=== PATIENT | male | born 1955 | race Caucasian/White ===

== ENCOUNTER 2017-07-21 05:35 | Outpatient (CLI) | payer OTHER ==
[~2017-07-21] VITALS: Ht 185.4 cm; Wt 113.5 kg
[~2017-07-21 05:35] MED LIST: ASP81CT; CLN.1T; FLEC100T2; LISI-556; LISI2.5T; METO100T5; MTP100TCR; SOTA120T; SOTA120T23
[2017-07-21] MEDS ORDERED: ATOR10TA66 PO (12:01)
[2017-07-21] MEDS ORDERED: BNZ40T PO (12:01)
[2017-07-21] MEDS ORDERED: METO-352 PO (12:01)
[2017-07-21] MEDS ORDERED: CLON0.1T PO (12:01)
[2017-07-21] MEDS ORDERED: AMLO5TAB2 PO (12:01)
[2017-07-21] MEDS ORDERED: FLEC100T PO (12:01)
[2017-07-21] MEDS ORDERED: NF-MEXI150 PO (12:01)
== END 2017-07-21 12:07 ==
LOC: PREOP 05:35
PROVIDERS: ATTEND Surgery
DX: Z01.818 Encounter for other preprocedural examination (principal); Z12.11 Encounter for screening for malignant neoplasm of colon; Z86.010 Personal history of colon polyps

== ENCOUNTER → 2017-07-28 | Day surgery (SDC) | payer OTHER ==
[~2017-07-28] VITALS: Ht 185.4 cm; Wt 113.5 kg
[~2017-07-28] MED LIST changes: +ACETAMINOPHEN 325 MG TABLET/CAPLET (TYLENOL) PO PRN; +AMLO5TAB2 PO; +ATOR10TA66 PO; +BNZ40T PO; +CLON0.1T PO; +FLEC100T PO; +HYDROcodone/APAP 5 MG/325 MG (LORTAB) TAB PO PRN; +LIDOCAINE JELLY 2% (XYLOCAINE) 5 ML TUBE MM PRN; +LIDOCAINE JELLY 2% (XYLOCAINE) 5 ML TUBE ONE; +METO-352 PO; +MIDAZOLAM 2 MG/2 ML (VERSED) VIAL ONE; +NF-MEXI150 PO; +NS IV 500 ML 500 ML IV PRN; +ONDANSETRON 4 MG/2 ML (SDV) Z0FRAN IV PRN; +fentaNYL INJECTION 100 MCG/2 ML AMP ONE
[2017-07-28 10:35] VITALS: BP 129/71
--- NOTE | 2017-07-28 10:38 | Conscious Sedation/ASA ---
Conscious Sedation Pre-Proced Time Reviewed: 10:00 ASA Class: 2 Airway Mallampati Classification: ([place] appropriate class) I. II. III, IV Lungs Heart ASA score ASA 1: a normal healthy patient ASA 2: a patient with a mild systemic disease (mid diabetes, controlled hypertension, obesity ASA 3: a patient with a severe systemic disease that limits activity (angina , COPD, prior Myocardial infarction) ASA 4: a patient with an incapacitating disease that is a constant threat to life (CHF, renal failure) ASA 5: a moribund patient not expected to survive 24 hrs. (ruptured aneurysm) ASA 6: a declared brain patient whose organs are being harvested. For emergent operations, add the letter E after the classification Grade 2 Sedation Plan: Analgesia, Amnesia, Plan communicated to team members, Discussed options with patient/fam, Discussed risks with patient/fam Note The patient is an appropriate candidate to undergo the planned procedure, sedation, and anesthesia. The patient immediately re-assessed prior to indication. SKY LOMELI MD Jul 28, 2017 10:38 am
--- NOTE | 2017-07-28 10:39 | Progress Note-Pre Operative ---
Pre-Operative Progress Note H&P Reviewed The H&P was reviewed, patient examined and no changes noted. Date Seen by Provider: Jul 28, 2017 Time Seen by Provider: 10:00 Date H&P Reviewed: Jul 28, 2017 Time H&P Reviewed: 10:00 Pre-Operative Diagnosis: hx colon polyp SKY LOMELI MD Jul 28, 2017 10:38 am
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
--- OUTSIDE RECORDS SUMMARY | 2017-07-28 11:55 | XMS REPORT | Encounter Summary ---
Author Author [facility] Organization [facility] Address Unknown Phone Unavailable Care Team Providers Care Electronics Tech Name Role Phone Namrata Bailey Unavailable Gabriella Knight RN Unavailable Unavailable Jorge Alberto Evans MD PCP Encounter Details Date Type Department Care Team Description 05/26/2017 [facility] Cardiology Сергей Muñoz MD Encounter Remote Device Check [address] [facility] [phone] [address] [place] [address] [phone] Social History Tobacco Use Types Packs/Day Years Used Date Never Smoker Smokeless Tobacco: Never Used Alcohol Use Drinks/Week oz/Week Comments No Sex Assigned at Date Recorded Not on file as of this encounter Medications at Time of Discharge Medication Sig. Disp. Refills Start Date End Date amLODIPine (NORVASC) 5 mg Take 1 tablet by mouth 90 tablet 3 2016 tabletIndications: PAF daily. (paroxysmal atrial fibrillation) (HCC), PVC's (premature ventricular contractions), Essential hypertension with goal blood pressure less than 130/80 atorvastatin (LIPITOR) 10 Take 1 tablet by mouth 90 tablet 3 2016 mg tabletIndications: daily. Hyperlipidemia, unspecified hyperlipidemia type benazepril (LOTENSIN) 40 Take 1 tablet by mouth 90 tablet 3 2016 mg tablet daily. cloNIDine (CATAPRESS) 0.1 Take 1 tablet by mouth 270 tablet 3 2016 mg tablet three times daily. flecainide (TAMBOCOR) 100 Take 1 tablet by mouth 180 tablet 3 2016 mg tabletIndications: PAF twice daily. (paroxysmal atrial fibrillation) (HCC), PVC's (premature ventricular contractions) metoprolol XL (TOPROL XL) Take 1.5 tablets by mouth 135 tablet 3 04/07 50 mg extended release daily. tabletIndications: PAF (paroxysmal atrial fibrillation) (HCC), PVC's (premature ventricular contractions), Essential hypertension with goal blood pressure less than 130/80 mexiletine (MEXITIL) 150 Take 150 mg by mouth as mg capsule directed. Take 2 tablets in the a.m., 2 tablets around 5pm, 1 tablet at bedtime as of this encounter Plan of Treatment Not on fileas of this encounter Results * DEVICE EVALUATION - REMOTE ILR (05/31/2017 1:12 PM) Component Value Ref Range Device Implanted By Dr. 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 [employer] Wireless Generator Yes Device Type ILR Device [place] Carelink Express Transmitter Compatible ILR History of [...] mins Generator Location Left ILR Current Monitoring 05/26/2017 to 06/25/2017 Period ILR Date of Last Daily 05/30/2017 Connection ILR Battery Status OK ILR Symptom Events Since 1 Last Interrogation ILR Symptom Lifetime 2 Events [...] Events as of ILR Presenting ECG Strip 05/30/2017 @ 00:04:50 shows SB in the 50's ILR Lifetime Events as of 05/30/2017 Datetion Specimen Performing Laboratory OTHER OUTSIDE LAB Narrative [05/31/2017 1:15:32 PM - NAMRATA TREJO] EP nurse was flagged to review and f/u if needed. Presenting rhythm: 05/30/2017 @ 00:04:50 shows SB in the 50's Reviewed Summary Report. One Symptom triggered event. #2 Symptom 05/23 @ 21:17 the 30 sec strip shows SR in the 70's. Plot graph suggests possible burst to ST/SA ~1.5-2.5 min prior to symptom triggered activation. Strip was scanned to review and I will route to Dr. Muñoz in the EP service at today for review and co-sign. in this encounter Visit Diagnoses Diagnosis PAF (paroxysmal atrial fibrillation) (HCC) Atrial fibrillation PVC's (premature ventricular contractions) Other premature beats Heart palpitations Palpitations
--- OUTSIDE RECORDS SUMMARY | 2017-07-28 11:55 | XMS REPORT | Encounter Summary ---
Author Author [facility] Organization [facility] Address Unknown Phone Unavailable Care Team Providers Care Ecd Name Role Phone Namrata Bailey Unavailable Gabriella Knight RN Unavailable Unavailable Jorge Alberto Evans MD PCP Reason for Visit * Reason Comments Follow-up Phone Call LINQ symptom event Encounter Details Date Type Department Care Team Description 05/31/[address] [facility] Cardiology Eda Moffett RN Follow- up Phone Call [phone] (LINQ symptom event) [facility] [address] [place] [address] Social History Tobacco Use Types Packs/Day Years Used Date Never Smoker Smokeless Tobacco: Never Used Alcohol Use Drinks/Week oz/Week Comments No Sex Assigned at Date Recorded Not on file as of this encounter Miscellaneous Notes * Telephone Encounter - Eda Moffett RN - 05/31/2017 3:26 PM [facility] Formatting of this note may be different from the original. JOLANTA Murillo Mac Nurse Serena from patient on triage line at 3:05 pm. Said that he is confused about the capture he had on the 3rd. He is at # [phone] till 4 pm then home # after that. Reviewed with device tech, patient may send a manual download with bedside monitor to capture information before time of symptom activation. Called patient with recommendation, he will do so tonight. * Telephone Encounter - Lisa Saenz LPN - 05/31/2017 2:51 PM SAW MAN Pt called back and I asked him his s/s when he sent his transmission and he was in afib. He though he had gotten to his transmitter in time to capture the afib. I told him it showed SB in the 50's. He is positive he had some afib, said he has dealt with this long enough to know. * Telephone Encounter - Eda Moffett RN - 05/31/2017 1:41 PM SAW MAN LM for patient to call back to review symptoms at time of transmission. * Telephone Encounter - Eda Moffett RN - 05/31/2017 1:41 PM SAW MAN ----- Message from Namrata Malagon sent at 05/31/2017 1:30 PM SAW MAN ----- Regarding: MPE LINQ pt with symptom triggered event Review and f/u if needed. Presenting rhythm: 05/30/2017 [...] for review and co-sign. in this encounter Plan of Treatment Not on fileas of this encounter Visit Diagnoses Not on filein this encounter
--- OUTSIDE RECORDS SUMMARY | 2017-07-28 11:55 | XMS REPORT | Encounter Summary ---
Author Author [facility] Organization [facility] Address Unknown Phone Unavailable Care Team Providers Care Rim Fire Charger Operator Name Role Phone Namrata Bailey Unavailable Gabriella Knight RN Unavailable Unavailable Jorge Alberto Evans MD PCP Encounter Details Date Type Department Care Team Description 06/28/2017 [facility] Cardiology Сергей Muñoz MD Encounter Remote Device Check [address] [facility] [phone] [address] [place] [address] [phone] Social History Tobacco Use Types Packs/Day Years [...] EVALUATION - REMOTE ILR (07/02/2017 2:04 PM) Component Value Ref Range Device Implanted By Dr. Сергей Muñoz Generator Model # LNQ11 Generator Serial # [id number] Generator Implnat Date 07/29/16 Remote Monitor Serial# [id number] LIA/EOL Indicator per transmitter Generator Director Risk [employer] Wireless Generator Yes Device Type ILR Device [place] [employer]link Express Transmitter Compatible ILR History of [...] to Dr. Muñoz for signature and review. in this encounter Visit Diagnoses Diagnosis PAF (paroxysmal atrial fibrillation) (HCC) Atrial fibrillation PVC's (premature ventricular contractions) Other premature beats Heart palpitations Palpitations
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
--- OUTSIDE RECORDS SUMMARY | 2017-07-28 11:56 | XMS REPORT | Continuity of Care Document ---
Author Author [facility] Organization [facility] Address Unknown Phone Unavailable Allergies Active Description Code Type Severity Reaction Onset Reported/Identified Relationship to Patient Clinical Status Yes [id number] (SULFA (SULFONAMIDE ANTIBIOTICS)) [id number] (SULFA (SULFONAMIDE ANTIBIOTICS)) Moderate RASH 04/06/2009 Yes Sulfa (Sulfonamide Antibiotics) [id number] Drug Allergy Unknown RASH 2008 Yes morphine [id number] Drug Allergy Mild NAUSEA 07/21/2017 Yes Sulfa (Sulfonamide Antibiotics) [id number] Drug Allergy Mild RASH 2017 Medications There is no data. Problems Date Dx Coded Attending Type Code Diagnosis Diagnosed By 08/08/2014 THAO MURPHY MD R Ot 719.45 08/08/2014 THAO MURPHY MD R Ot 724.4 08/08/2014 HTAO MURPHY MD R Ot 719.45 08/08/2014 THAO MURPHY MD R Ot 724.4 08/24/2014 Ot 722.52 LUMB/ LUMBOSAC DISC DEGEN 08/24/2014 Ot V58.69 OTH MED,LT, CURRENT USE 03/21/2015 TRUDY MEREDITH, DOROTHEA Gordillo Ot I48.91 UNSPECIFIED ATRIAL FIBRILLATION 05/03/2016 THAO MURPHY MD R Ot G47.10 HYPERSOMNIA, UNSPECIFIED 05/03/2016 THAO MURPHY MD R Ot R06.83 SNORING 07/21/2017 SKY LOMELI MD Ot Z01.818 ENCOUNTER FOR OTHER PREPROCEDURAL EXAMIN 07/21/2017 SKY LOMELI MD Ot Z12.11 ENCOUNTER FOR SCREENING FOR MALIGNANT NE 07/21/2017 SKY LOMELI MD Ot Z86.010 PERSONAL HISTORY OF COLONIC POLYPS 07/22/2017 SKY LOMELI MD Ot Z01.818 ENCOUNTER FOR OTHER PREPROCEDURAL EXAMIN 07/22/2017 SKY LOMELI MD, Ot Z12.11 ENCOUNTER FOR SCREENING FOR MALIGNANT NE 07/22/2017 SKY LOMELI MD, Ot Z86.010 PERSONAL HISTORY OF COLONIC POLYPS Procedures There is no data. Results There is no data. Encounters ACCT No. Visit Date/Time Discharge Status Pt. Type Provider Facility Loc./Unit Complaint [id number] 07/21/2017 05:35:00 07/21/2017 12:07:00 DIS Outpatient SKY LOMELI MD [facility] PREOP COLONOSCOPY [id number] 05/02/2016 19:54:00 05/03/2016 05:56:00 DIS Outpatient THAO MURPHY MD [facility] SLEEP SNORING [id number] 03/20/2015 23:43:00 03/21/2015 01:49:00 DIS Emergency DOROTHEA YATES MD [facility] ER A-FIB [id number] 08/06/2014 16:00:00 08/06/2014 23:59:59 CLS Outpatient THAO MURPHY MD [facility] RAD [id number] 07/28/2017 10:29:00 ACT Outpatient SKY LOMELI MD [facility] ENDO SCREENING/HX POLYPS [id number] 08/24/2014 08:47:00 Document Registration
[2017-07-28] MEDS: fentaNYL INJECTION 100 MCG/2 ML AMP IVP PRN ×4 (12:13→12:26)
[2017-07-28] MEDS: MIDAZOLAM 2 MG/2 ML (VERSED) VIAL IVP PRN ×4 (12:15→12:30)
--- NOTE | 2017-07-28 12:45 | Progress Note-Post Operative ---
Post-Operative Progess Note Surgeon (s)/Talent Management Manager (s) Surgeon SKY LOMELI MD Talent Management Manager: none Pre-Operative Diagnosis hx colon polyp Post-Operative Diagnosis chronic stage 2 ext and int hemorrhoids, moderate sigmoid diverticulosis. Procedure & Operative Findings Date of Procedure 07/28/17 Procedure Performed/Findings Colonoscopy. Anesthesia Type CS Estimated Blood Loss Estimated blood loss (mL): minimal Specimens/Packing Specimens Removed none SKY LOMELI MD Jul 28, 2017 12:45 pm
--- NOTE | 2017-07-28 12:46 | Discharge Inst-Surgical ---
D/C Lap Instructions-ARMANI Follow Up 10 years Activity as tolerated High Fiber Diet 25g or more per day Avoid Alcohol, Caffeine, Spicy [place]ett[place] and Acid foods. Drink 64 fluid oz or more of fluids per day. Symptoms to Report: Fever over 101 degree F, Nausea/Vomiting If any problems/questions: Contact your physician or go to Emergency Room SKY LOMELI MD Jul 28, 2017 12:46 pm
[2017-07-28 13:20] VITALS: BP 117/74
[2017-07-28 13:50] VITALS: BP 119/74
[2017-07-28 13:55] VITALS: BP 119/74
--- NOTE | 2017-07-28 18:24 | OPERATIVE REPORT ---
DATE OF SERVICE: 07/28/2017 ATTENDING PRIMARY CARE PHYSICIAN: Dr. Evans. PREOPERATIVE DIAGNOSIS: History of colon polyp. POSTOPERATIVE DIAGNOSIS: Chronic stage II external and internal hemorrhoids, moderate sigmoid diverticulosis. PROCEDURE: Colonoscopy. SURGEON: Dr. Lomeli. ANESTHESIA: Conscious sedation. ESTIMATED BLOOD LOSS: Minimal. FINDINGS: Chronic stage II external and internal hemorrhoids. Prostate gland was palpable and appeared normal. Mild to moderate sigmoid diverticulosis. The remainder of the colon was normal. There were no polyps identified. DISPOSITION: The patient tolerated the procedure well. INDICATIONS: The patient is a 62-year-old male in need of a followup colonoscopy. He has had two colonoscopies done in the past. He reports the first one was done at around age 48 and a polyp was identified, biopsied and found to be benign. He then underwent a followup colonoscopy and he states that this was normal. He states that for the most part he is doing well and having normal bowel movements. He does not report any major issues with diarrhea nor constipation as well as no red blood per rectum nor any dark tarry stools. He also does not report any family history of colon cancer. DESCRIPTION OF PROCEDURE: The patient was brought to the endoscopy suite, laid in the left lateral decubitus position. After adequate IV pain and sedating medications and conscious sedation anesthesia, a digital rectal examination was performed. Chronic stage II external and internal hemorrhoids were identified, which were not actively edematous nor inflamed and no bleeding. Normal sphincter tone was felt and there were no palpable masses. Prostate gland was palpable and appeared normal. The endoscope was then intubated to the anus and rectum and gently insufflated. The endoscope was then advanced to the valves of [place] of the rectum with no polyps or any neoplasms identified. Through the sigmoid colon, mild to moderate sigmoid diverticulosis identified. There were no mucosal inflammatory changes to indicate any active diverticulitis. The endoscope was then advanced to the remainder of the descending, transverse and ascending colon to the cecum. These segments were normal. There were no polyps or any neoplasms identified. The endoscope was then slowly withdrawn while taking a second look and suctioning of residual air with no additional findings. The patient tolerated the procedure well. We will recommend continued medical management with a high fiber diet with at least 30 g of fiber per day to promote soft stools on a daily basis. No polyps identified and he does not have a family history of colon cancer. He does not need another colonoscopy for another 10 years; however, sooner if any problems arise. Job ID: [id number] DocumentID: [id number] Dictated Date: 07/28/2017 12:50:26 Emergency Spill Response Technician Date: 07/28/2017 18:23:47 Dictated By: SKY LOMELI MD
== END | disposition home or self-care (01) ==
LOC: ENDO 10:29
PROVIDERS: ATTEND Surgery
DX: K57.30 Diverticulosis of large intestine without perforation or abscess without bleeding (principal); K64.1 Second degree hemorrhoids; I48.91 Unspecified atrial fibrillation; I10 Essential (primary) hypertension; E78.00 Pure hypercholesterolemia, unspecified; Z79.899 Other long term (current) drug therapy

== ENCOUNTER → 2017-11-29 | Outpatient (CLI) | payer OTHER ==
[~2017-11-29] MED LIST changes: -ACETAMINOPHEN 325 MG TABLET/CAPLET (TYLENOL) PO PRN; -HYDROcodone/APAP 5 MG/325 MG (LORTAB) TAB PO PRN; -LIDOCAINE JELLY 2% (XYLOCAINE) 5 ML TUBE MM PRN; -LIDOCAINE JELLY 2% (XYLOCAINE) 5 ML TUBE ONE; -MIDAZOLAM 2 MG/2 ML (VERSED) VIAL ONE; -NS IV 500 ML 500 ML IV PRN; -ONDANSETRON 4 MG/2 ML (SDV) Z0FRAN IV PRN; -fentaNYL INJECTION 100 MCG/2 ML AMP ONE
--- NOTE | 2017-11-29 13:38 | Diagnostic Imaging Report ---
EXAMINATION: Magnetic resonance imaging of the right ankle without contrast. DATE: November 29, 2017. COMPARISON: Right ankle radiographs October 11, 2017. HISTORY: 62-year-old male, right ankle pain. History of injury. TECHNIQUE: Magnetic Resonance Imaging sequences were performed of the ankle without contrast. FINDINGS: TENDONS AND LIGAMENTS: The Achilles tendon is unremarkable. There is a small amount of fluid within the tibialis posterior tendon sheath, which is at the upper limits of normal for detection on MRI. There is minimal fluid in the flexor digitorum longus tendon sheath, which may relate to low-level tenosynovitis. There is no identified tear of the posterior flexor tendons. The peroneal tendons - peroneus longus and peroneus brevis - are intact. There is a small amount of fluid within the common peroneal tendon sheath, likely within normal limits for detection on MRI. The anterior extensor tendons - tibialis anterior, extensor hallucis longus, and extensor digitorum longus tendons - are intact. The anterior and posterior syndesmotic ligaments are intact. The anterior talofibular, posterior talofibular, and calcaneofibular ligaments are intact. There is increased signal and mild thickening of the deep deltoid ligament likely relating to sprain injury. The plantar fascia is intact. JOINTS: There is a prominent subchondral cyst within the medial talar dome with adjacent marrow edema. There is no identified osteochondral lesion of the talar dome. There is no tibiotalar joint effusion. There is no subtalar joint effusion. There is a trace calcaneocuboid joint effusion. BONE: There is a degenerative related cyst in the dorsal aspect of the navicular at its distal aspect. There are minimal degenerative changes at the talonavicular articulation. There is no acute fracture. There is no evidence of osteonecrosis. BURSAE AND SOFT TISSUES: There is nonspecific medial and lateral subcutaneous edema at the level of the ankle. There is nonspecific edema within the soleus and posterior compartment muscles. IMPRESSION: 1. Negative for tendon tear. 2. Sprain injury of the deep deltoid ligament. 3. Intact syndesmotic ligaments and low lateral ankle ligament complex. 4. Prominent subchondral cysts within the medial talar dome with adjacent marrow edema which is likely arthritic related. No tibiotalar joint effusion. 5. Trace calcaneocuboid joint effusion. 6. Very small amount of fluid in the tendon sheath of flexor digitorum longus, which may potentially reflect low-level tenosynovitis. Very small amounts of fluid within the tendon sheath of tibialis posterior and within the common peroneal tendon sheath, which are favored to be within normal limits for detection on MRI. 7. Nonspecific edema within the soleus and posterior compartment muscles, which potentially may reflect denervation related signal changes, low-grade muscle strain, and/or myositis. Dictated by: Dictated on workstation # [id number]
== END ==
LOC: RAD 08:30
PROVIDERS: ATTEND Nurse Practitioner
DX: S93.421A Sprain of deltoid ligament of right ankle, initial encounter (principal); M85.671 Other cyst of bone, right ankle and foot; S86.391A Other injury of muscle(s) and tendon(s) of peroneal muscle group at lower leg level, right leg, initial encounter
CPT/HCPCS: 73721

== ENCOUNTER 2019-01-04 18:34 | Inpatient (IN) | payer MEDICARE, OTHER ==
[~2019-01-04] VITALS: Ht 185.4 cm; Wt 113.1 kg
[~2019-01-04 18:34] MED LIST changes: -AMLO5TAB2 PO; +AMLO5TAB9 PO; +BENA40TA5 PO; -BNZ40T PO
--- OUTSIDE RECORDS SUMMARY | 2019-01-04 18:38 | XMS REPORT | Encounter Summary ---
Author Author [facility] Organization [facility] Address Unknown Phone Unavailable Care Team Providers Care Erector Operator Name Role Phone Namrata Bailey Unavailable Gabriella Knight RN Unavailable Unavailable Jorge Alberto Evans MD PCP Reason for Visit * Reason Comments Medication Refill Encounter Details Care Team Description Date Type Department Theodora Mcnally RN Medication Refill 01/04/[address] Tele[address] [address] Social History Date Tobacco Use Types Packs/Day Years Used Never Smoker Smokeless Tobacco: Never Used Drinks/Week oz/Week Comments Alcohol Use beer occasionally Yes Sex Assigned at Date Recorded Not on file Industry Job Start Date Occupation Not on file Not on file Not on file Travel End Travel History Travel Start No recent travel history available. documented as of this encounter Miscellaneous Notes * Addendum Note - Theodora Mcnally RN - 01/04/2019 3:15 PM CDT Addended by: THEODORA MCNALLY on: 01/04/2019 03:15 PM Modules accepted: Orders * Telephone Encounter - Theodora Mcnally RN - 01/04/2019 3:08 PM CDT Medications refilled at the patient's request. Patient is agreeable to obtain la bs at [facility] in [place], [place]. * Telephone Encounter - Theodora Mcnally RN - 01/04/2019 2:54 PM CDT ----- Message from Kayley Dorado LPN sent at 01/04/2019 2:20 PM CDT ----- Regarding: MPE- refills VM from patient on triage line. Said that he needs refill but not all of them. Said to call home # and he will give you names of what he needs. documented in this encounter Plan of Treatment Order Schedule Name Type Priority Associated Diagnoses Expected: 01/04/2019 (Approximate), Expires: 01/05/2020 LIPID PROFILE Lab Routine Hyperlipidemia, unspecified hyperlipidemia type Expected: 01/04/2019 (Approximate), Expires: 01/05/2020 COMPREHENSIVE METABOLIC Lab Routine PAF (paroxysmal atrial PANEL fibrillation) (HCC) Expected: 01/04/2019 (Approximate), Expires: 01/05/2020 MAGNESIUM Lab Routine PAF (paroxysmal atrial fibrillation) (HCC) documented as of this encounter Visit Diagnoses Diagnosis Hyperlipidemia, unspecified hyperlipidemia type - Primary PAF (paroxysmal atrial fibrillation) (HCC) Atrial fibrillation PVC's (premature ventricular contractions) Other premature beats Essential hypertension with goal blood pressure less than 130/80 documented in this encounter
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
--- OUTSIDE RECORDS SUMMARY | 2019-01-04 18:39 | XMS REPORT | Encounter Summary ---
Author Author [facility] Organization [facility] Address Unknown Phone Unavailable Care Team Providers Care Earth Observations Chief Scientist Name Role Phone Namrata Bailey Unavailable Gabriella Knight RN Unavailable Unavailable Jorge Alberto Evans MD PCP Reason for Referral * Consult, Test & Treat (Routine) Referred By Contact Referred To Contact Status Reason Specialty Diagnoses / Procedures Сергей Muñoz MD [address] [place] [address] [place] [address] [place] [address] [place] [address] No Auth Needed Cardiology Diagnoses PVC's (premature ventricular contractions) P rocedures REGADENOSON MPI STRESS TEST CHG MYOCARDIAL SPECT MULTIPLE STUDIES * Consult, Test & Treat (Routine) Referred By Contact Referred To Contact Status Reason Specialty Diagnoses / Procedures Сергей Muñoz MD [address] [place] [address] [place] [address] [address] [address] [place] [address] No Auth Needed Cardiology Diagnoses PVC's (premature ventricular contractions) P rocedures REGADENOSON MPI STRESS TEST CHG MYOCARDIAL SPECT MULTIPLE STUDIES Reason for Visit * Consult, Test & Treat (Routine) Referred By Contact Referred To Contact Status Reason Specialty Diagnoses / Procedures Сергей Muñoz MD [address] [place] [address] [id number] [place] [address] [place] [address] No Auth Needed Cardiology Diagnoses PVC's (premature ventricular contractions) P rocedures REGADENOSON MPI STRESS TEST CHG MYOCARDIAL SPECT MULTIPLE STUDIES Encounter Details Care Team Description Date Type Department Сергей Muñoz MD [address] [facility] [place] [address] [phone] 12/08/2018 [facility] [address] [place] [address] Social History Date Tobacco Use Types Packs/Day Years Used Never Smoker Smokeless Tobacco: Never Used Drinks/Week oz/Week Comments Alcohol Use beer occasionally Yes Sex Assigned at Date Recorded Not on file Industry Job Start Date Occupation Not on file Not on file Not on file Travel End Travel History Travel Start No recent travel history available. documented as of this encounter Medications at Time of Discharge Start Date End Date Medication Sig Dispensed Refills 07/21/2018 amLODIPine (NORVASC) 10 Take one 90 tablet 3 mg tabletIndications: PAF tablet by (paroxysmal atrial mouth daily. fibrillation) (HCC), PVC's (premature ventricular contractions), Essential hypertension with goal blood pressure less than 130/80 07/15/2018 mexiletine (MEXITIL) 150 Take one 450 capsule 1 mg capsule capsule by mouth as directed. Take 2 tablets in the a.m., 2 tablets around 5pm, 1 tablet at bedtime 10/07/2018 01/04/2019 apixaban (ELIQUIS) 5 mg Take one 60 tablet 0 tablet tablet by mouth twice daily. 07/15/2018 01/04/2019 atorvastatin (LIPITOR) 10 Take one 90 tablet 1 mg tabletIndications: tablet by Hyperlipidemia, mouth daily. unspecified hyperlipidemia type 07/15/2018 01/04/2019 benazepril (LOTENSIN) 40 Take one 90 tablet 1 mg tablet tablet by mouth daily. 07/15/2018 01/04/2019 cloNIDine (CATAPRESS) 0.1 Take one 270 tablet 1 mg tablet tablet by mouth three times daily. 07/15/2018 01/04/2019 flecainide (TAMBOCOR) 100 Take one 180 tablet 1 mg tabletIndications: PAF tablet by (paroxysmal atrial mouth twice fibrillation) (HCC), daily. PVC's (premature ventricular contractions) 07/15/2018 01/04/2019 metoprolol XL (TOPROL XL) Take 1.5 135 tablet 1 50 mg extended release tablets by tabletIndications: PAF mouth daily. (paroxysmal atrial fibrillation) (HCC), PVC's (premature ventricular contractions), Essential hypertension with goal blood pressure less than 130/80 documented as of this encounter Progress Notes * Heidi Harvey RN - 12/08/2018 10:54 AM CDT Peripheral IV Insertion Note: Patient Side: right Line Orientation:Hand IV Catheter Size: 22G Number of Attempts:1. IV capped and flushed with Normal Saline. IV site withou t redness, swelling, or pain. New dressing placed. After procedure IV cannula removed intact and hemostasis achieved. documented in this encounter Plan of Treatment Not on filedocumented as of this encounter Procedures Comments Procedure Name Priority Date/Time Associated Diagnosis MULTI GATED Routine 12/08/2018 PVC's (premature 9:52 AM CDT ventricular contractions) documented in this encounter Results * REGADENOSON MPI STRESS TEST (12/08/2018 [...] [address] OTHER OUTSIDE LAB Study Number [id number] OTHER OUTSIDE LAB PUL TO JAMES 0.32 [...] At OTHER OUTSIDE LAB Nuclear Report [facility] Division of Nuclear Cardiac Imaging Consultation Report EXAMINATION:D-SPECT Gated [id number] Chloride myocardial perfusion single-photon emission computed tomography for viability, resting regional wall function, resting ejection fraction, and perfusion imaging utilizing Regadenoson pharmacological stress. Date of Study:12/08/18 Study #:[id number] [facility] Billing ID:[id number] Referring Physician:Jorge Alberto Evans MD Requested by:Сегрей Muñoz MD BMI: 35.2 kg/m2 INDICATIONS FOR [...] Approximately 20 seconds later 2.7 mCi of [id number] was injected intravenously. Throughout the infusion continuous electrocardiographic monitoring and serial electrocardiograms were obtained, as well as intermittent blood pressure recordings.Gated upright D-SPECT tomographic images were then acquired approximately 5 minutes after discontinuation of the regadenoson infusion. When indicated supine D-SPECT images were also obtained.The patient returned in approximately 4 hours and received an additional intravenous injection of 0.55 mCi of [id number] Chloride as a reinjected dose to assist [...] This is a nonischemic regadenoson stress electrocardiogram. Mcexynamq-ga-Vzdifbukqd Count Ratio:0.32(normal=or < 0.52). Scintigraphic Findings: TID [...] Address City/State/Zipcode Phone Number OTHER OUTSIDE LAB documented in this encounter Visit Diagnoses Diagnosis PVC's (premature ventricular contractions) Other premature beats documented in this encounter Administered Medications Action Date Dose Rate Site Medication Order MAR Action 12/08/2018 9:30 AM CDT 0.4 mg regadenoson (LEXISCAN) injection 0.4 mg Given 0.4 mg, Intravenous, ONCE, 1 dose, [facility] 12/08/18 at 1100, Inject 0.4 mg Regadenoson IV over 10 to 15 seconds, flush with 10 mL 0.9% Sodium Chloride solution IV over 10-20 seconds., MAC Procedure Area Only - Medications documented in this encounter
--- OUTSIDE RECORDS SUMMARY | 2019-01-04 18:39 | XMS REPORT | Encounter Summary ---
Author Author [facility] Organization [facility] Address Unknown Phone Unavailable Care Team Providers Care Camp Advisor Name Role Phone Namrata Bailey Unavailable Gabriella Knight RN Unavailable Unavailable Jorge Alberto Evans MD PCP Reason for Visit * Reason Comments Follow-up Phone Call Med refills Encounter Details Care Team Description Date Type Department Alisha Mcnally RN Follow-up Phone Call (Med refills) 01/03/2019 Telephone The [address] [place] [address] Social History Date Tobacco Use Types Packs/Day [...] encounter Miscellaneous Notes * Telephone Encounter - Alisha Mcnally RN - 01/03/2019 2:46 PM CDT Attempted to contact patient regarding med refills, but no answer. LMCB. * Telephone Encounter - Alisha Mcnally RN - 01/03/2019 2:45 PM CDT ----- Message from Lisa Saenz LPN sent at 01/03/2019 1:13 PM CDT ----- Regarding: pt lm he needs a call regarding some refills he needs Call back is [phone] documented in this encounter Plan of Treatment Not on filedocumented as of this encounter Visit Diagnoses Not on filedocumented in this encounter
--- OUTSIDE RECORDS SUMMARY | 2019-01-04 18:39 | XMS REPORT | Encounter Summary ---
Author Author [facility] Organization [facility] Address Unknown Phone Unavailable Care Team Providers Care Radio Engineer Name Role Phone Namrata Bailey Unavailable Gabriella Knight RN Unavailable Unavailable Jorge Alberto Evans MD PCP Encounter Details Care Team Description Date Type Department Сергей Muñoz MD [address] [facility] [place] [address] [phone] 11/08/2018 Hospital Cardiovascular Medicine Encounter Remote Device Check [phone] Social History Date Tobacco Use Types Packs/Day [...] than 130/80 documented as of this encounter Plan of Treatment Not on filedocumented as of this encounter Procedures Comments Procedure Name Priority Date/Time Associated Diagnosis DEVICE EVALUATION - Routine 11/15/2018 PAF (paroxysmal atrial REMOTE ILR 1:18 PM CDT fibrillation) ([facility]) PVC's (premature ventricular contractions) Heart palpitations documented in this encounter Results * DEVICE EVALUATION - REMOTE ILR (11/15/2018 1:18 PM CDT) [facility] Signature Device Dr. Сергей Muñoz OTHER OUTSIDE Implanted By LAB Generator Model [id number] OTHER OUTSIDE # LAB Generator [id number] OTHER OUTSIDE Serial # LAB Generator 07/29/16 OTHER OUTSIDE Implnat Date LAB Remote Monitor [id number] OTHER OUTSIDE Serial# LAB LIA/EOL per transmitter OTHER OUTSIDE Indicator LAB Generator Medtronic OTHER OUTSIDE Director Of Financial Reporting LAB Wireless Yes OTHER OUTSIDE Generator LAB Device Type ILR OTHER OUTSIDE LAB Device [employer] OTHER OUTSIDE [place] LAB Transmitter Compatible ILR History of yes [...] OUTSIDE LAB Eliquis [11/16/2018 11:55:06 AM - NAMRATA TREJO] EP nurse was notified of abnormal [...] and review. __ [11/15/2018 1:20:07 PM - PAMELA, KATE SHAH] Presenting EGM: 11/15/18 @ 0004 SR 60's [...] documented in this encounter Visit Diagnoses Diagnosis PAF (paroxysmal atrial fibrillation) (HCC) Atrial fibrillation PVC's (premature ventricular contractions) Other premature beats Heart palpitations Palpitations documented in this encounter
--- OUTSIDE RECORDS SUMMARY | 2019-01-04 18:39 | XMS REPORT | Encounter Summary ---
Author Author [facility] Organization [facility] Address Unknown Phone Unavailable Care Team Providers Care Betting Clerks Name Role Phone Namrata Bailey Unavailable Gabriella Knight RN Unavailable Unavailable Jorge Alberto Evans MD PCP Encounter Details Care Team Description Date Type Department Сергей Muñoz MD [address] [facility] [place] [address] [phone] 12/09/2018 Hospital Cardiovascular Medicine Encounter Remote Device Check [phone] Social History Date Tobacco Use Types Packs/Day [...] tablet by (paroxysmal atrial mouth twice fibrillation) ([facility]), daily. PVC's (premature ventricular contractions) 07/15/2018 01/04/2019 metoprolol XL (TOPROL XL) Take 1.5 135 tablet 1 50 mg extended release tablets by tabletIndications: PAF mouth daily. (paroxysmal atrial fibrillation) ([facility]), PVC's (premature ventricular contractions), Essential hypertension with goal blood pressure less than 130/80 documented as of this encounter Plan of Treatment Date/Time Name Type Priority Associated Diagnoses 12/13/2018 1:39 PM CDT DEVICE EVALUATION - Heart Rhythm Routine PAF (paroxysmal atrial REMOTE ILR Management fibrillation) ([facility]) PVC's (premature ventricular contractions) Heart palpitations documented as of this encounter Procedures Comments Procedure Name Priority Date/Time Associated Diagnosis DEVICE EVALUATION - Routine 12/13/2018 PAF (paroxysmal atrial REMOTE ILR 1:39 PM CDT fibrillation) ([facility]) PVC's (premature ventricular contractions) Heart palpitations Procedure Note - Kate Santiago - 12/26/2018 1:56 PM CDT Eliquis [12/26/2018 1:50:06 PM - KATE SANTIAGO] EP RN notified of abnormal transmissi [...] signature and review. [12/13/2018 1:41:31 PM - PAMELA , KATE SHAH] Presenting EGM: 12/13/18 @ 0004 SB 50's. Summary report received and reviewed, no new events to report, will continue to monitor. Results routed to Dr. Muñoz for signature and review. documented in this encounter Visit Diagnoses Diagnosis PAF (paroxysmal atrial fibrillation) (HCC) Atrial fibrillation PVC's (premature ventricular contractions) Other premature beats Heart palpitations Palpitations documented in this encounter
--- OUTSIDE RECORDS SUMMARY | 2019-01-04 18:39 | XMS REPORT | Encounter Summary ---
Author Author [facility] Organization [facility] Address Unknown Phone Unavailable Care Team Providers Care Linseed Cake Trimmer Name Role Phone Namrata Bailey Unavailable Gabriella Knight RN Unavailable Unavailable Jorge Alberto Evans MD PCP Reason for Visit * Reason Comments Follow-up Phone Call LINQ Encounter Details Care Team Description Date Type Department Alex Jordan RN Follow-up Phone Call (LINQ) 12/26/2018 Telephone The [place] [address] [place] [address] Social History Date Tobacco Use Types Packs/Day [...] encounter Miscellaneous Notes * Telephone Encounter - Alex Jordan RN - 12/26/2018 4:17 PM CDT Left msg with daughter Betsy to have pt call back. * Telephone Encounter - Alex Jordan RN - 12/26/2018 4:17 PM CDT ----- Message from Kayley Beltran sent at 12/26/2018 1:55 PM CDT ----- Regarding: jaquan MULLER RN notified of abnormal transmission Presenting EGM: 12/24/18 @ 0004 SR 60 bpm Event report received and reviewed 1 new symptom activation # 9- Symptom- 12/21/18 @ 0819- SB 50's with possible ectopy per plot graph Please see scanned data sheets for further review, will continue to monitor. Results routed to Dr. Muñoz for signature and review. documented in this encounter Plan of Treatment Not on filedocumented as of this encounter Visit Diagnoses Not on filedocumented in this encounter
--- OUTSIDE RECORDS SUMMARY | 2019-01-04 18:39 | XMS REPORT | Encounter Summary ---
Author Author [facility] Organization [facility] Address Unknown Phone Unavailable Care Team Providers Care Crime Scene Investigator Name Role Phone Namrata Bailey Unavailable Gabriella Knight RN Unavailable Unavailable Jorge Alberto Evans MD PCP Encounter Details Care Team Description Date Type Department Сергей Muñoz MD [address] [facility] [place] [address] [phone] 10/10/2018 Hospital Cardiovascular Medicine Encounter Remote Device Check [phone] Social History Date Tobacco Use Types Packs/Day [...] Date/Time Associated Diagnosis DEVICE EVALUATION - Routine 10/11/2018 PAF (paroxysmal atrial REMOTE ILR 11:38 AM CDT fibrillation) ([facility]) PVC's (premature ventricular contractions) Heart palpitations documented in this encounter Results * DEVICE EVALUATION - REMOTE ILR (10/11/2018 11:38 AM CDT) [facility] Signature Device Dr. Сергей Muñoz OTHER OUTSIDE Implanted By LAB Generator Model LNQ11 OTHER OUTSIDE # LAB Generator [id number] OTHER OUTSIDE Serial # LAB Generator 07/29/16 OTHER OUTSIDE Implnat Date LAB Remote Monitor [id number] OTHER OUTSIDE Serial# LAB LIA/EOL per transmitter OTHER OUTSIDE Indicator LAB Generator Medtronic OTHER OUTSIDE Diamond Powder Mixer LAB Wireless Yes OTHER OUTSIDE Generator LAB Device Type ILR OTHER OUTSIDE LAB Device [employer] OTHER OUTSIDE [place] LAB Transmitter Compatible ILR History of yes [...] OUTSIDE LAB Eliquis [10/11/2018 11:40:11 AM - KATE SANTIAGO] Presenting EGM: 10/11/18 @ 0004 SB 50's. [...]
--- OUTSIDE RECORDS SUMMARY | 2019-01-04 18:39 | XMS REPORT | Encounter Summary ---
Author Author [facility] Organization [facility] Address Unknown Phone Unavailable Care Team Providers Care Manager Eligibility Name Role Phone Namrata Bailey Unavailable Gabriella Knight RN Unavailable Unavailable Jorge Alberto Evans MD PCP Reason for Visit * Reason Comments Test/procedure Regadenoson thallium Encounter Details Care Team Description Date Type Department Heidi Harvey RN Test/procedure (Regadenoson thallium) 12/06/2018 Telephone The [facility] [address] [place] [address] Social History Date Tobacco Use Types Packs/Day [...] encounter Miscellaneous Notes * Telephone Encounter - Heidi Harvey RN - 12/06/2018 11:37 AM CDT Reviewed time, date and location of his test. He has had it before. He tried to walk on the TM but could not achieve THR so switched to the regadenoson. He does not drink caffiene. He knows to be NPO after midnight and he may take his AM me ds with a little water. documented in this encounter Plan of Treatment Not on filedocumented as of this encounter Visit Diagnoses Not on filedocumented in this encounter
--- OUTSIDE RECORDS SUMMARY | 2019-01-04 18:39 | XMS REPORT | Encounter Summary ---
Author Author [facility] Organization [facility] Address Unknown Phone Unavailable Care Team Providers Care Baseball Sewer Hand Name Role Phone Namrata Bailey Unavailable Gabriella Knight RN Unavailable Unavailable Jorge Alberto Evans MD PCP Reason for Visit * Reason Comments HRM - Abnormal Results (Remote Device - Abnormal Rhythms) Encounter Details Care Team Description Date Type Department Melissa Cortez RN HRM - Abnormal Results (Remote Device - Abnormal Rhythms) 11/16/2018 Telephone The [address] [place] [address] Social History Date Tobacco Use Types Packs/Day [...] encounter Miscellaneous Notes * Telephone Encounter - Melissa Cortez RN - 11/16/2018 2:06 PM CDT Called patient to review event below. Patient sates that it woke him up and felt like it heart was racing but it resol jenny. Patient states that he had no further concerns or questions. * Telephone Encounter - Melissa Cortez RN - 11/16/2018 2:05 PM CDT ----- Message from Namrata Malagon sent at 11/16/2018 12:01 PM CDT ----- Regarding: MPE LINQ pt with symptom triggered event (full report) Presenting EGM on 11/16/2018 @ 08:47:36 shows sinus arrhythmia with V rates betwe en 50's-60's. Reviewed Full Report shows: #8 Symptom 11/14 @ 00:38 shows SB in the 50's into a 6 sec burst of AT with a SB beat at 57 bpm and three sinus arrhythmia beats between 90's-100's followed by S B in the 50's into SR. Please see scanned data sheets for further review. Results routed to Dr. Muñoz for signature and review. documented in this encounter Plan of Treatment Not on filedocumented as of this encounter Visit Diagnoses Not on filedocumented in this encounter
[2019-01-04] MEDS ORDERED: fentaNYL INJECTION 100 MCG/2 ML AMP IVP STA (18:40)
[2019-01-04] MEDS ORDERED: LACTATED RINGERS 1,000 ML IV ONE (18:40)
--- OUTSIDE RECORDS SUMMARY | 2019-01-04 18:40 | XMS REPORT | Encounter Summary ---
Author Author [facility] Organization [facility] Address Unknown Phone Unavailable Care Team Providers Care Checkroom Attendant Name Role Phone Namrata Bailey Unavailable Gabriella Knight RN Unavailable Unavailable Jorge Alberto Evans MD PCP Encounter Details Care Team Description Date Type Department Сергей Muñoz MD [address] [facility] [place] [address] [phone] Canceled (Office-Scheduling Error) 07/21/2018 [facility] [address] [place] [address] Social History Date Tobacco Use Types Packs/Day [...] tablets around 5pm, 1 tablet at bedtime 07/15/2018 01/04/2019 atorvastatin (LIPITOR) 10 Take one [...] tablet by (paroxysmal atrial mouth twice fibrillation) ([facility]), daily. PVC's (premature ventricular contractions) 07/15/2018 01/04/2019 metoprolol XL (TOPROL XL) Take 1.5 135 tablet 1 50 mg extended release tablets by tabletIndications: PAF mouth daily. (paroxysmal atrial fibrillation) ([facility]), PVC's (premature ventricular contractions), Essential hypertension with goal blood pressure less than 130/80 documented as of this encounter Plan of Treatment Not on filedocumented as of this encounter Visit Diagnoses Diagnosis PAF (paroxysmal atrial fibrillation) ([facility]) Atrial fibrillation PVC's (premature ventricular contractions) Other premature beats documented in this encounter
--- OUTSIDE RECORDS SUMMARY | 2019-01-04 18:40 | XMS REPORT | Encounter Summary ---
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 reviewed,no new events to report, will continue to monitor. Results routed to Dr. Muñoz for signature and review. __ Performing Organization Address City/State/Zipcode Phone Number OTHER OUTSIDE LAB * ECG/QRS (07/21/2018 10:46 AM MANAGER OF TIRES SALES) QRS DURATION 128 OTHER OUTSIDE LAB Performing Organization Address City/State/Zipcode Phone Number OTHER OUTSIDE LAB * ECG-SCAN (07/21/2018 12:00 AM MANAGER OF TIRES SALES) Narrative Performed At Ordered by an unspecified provider. * ECG-SCAN (07/21/2018 12:00 AM MANAGER OF TIRES SALES) Narrative Performed At Ordered by an unspecified provider. documented in this encounter Visit Diagnoses Diagnosis PVC's (premature ventricular contractions) - Primary Other premature beats Cardiac device in situ Unspecified cardiac device in situ PAF (paroxysmal atrial fibrillation) (HCC) Atrial fibrillation Essential hypertension with goal blood pressure less than 130/80 documented in this encounter
--- OUTSIDE RECORDS SUMMARY | 2019-01-04 18:40 | XMS REPORT | Encounter Summary ---
Author Author [facility] Organization [facility] Address Unknown Phone Unavailable Care Team Providers Care Merchandise Executive Name Role Phone Namrata Bailey Unavailable Gabriella Knight RN Unavailable Unavailable Jorge Alberto Evans MD PCP Reason for Visit * Reason Comments Medication Question questions about meds Encounter Details Care Team Description Date Type Department Melissa Cortez RN Medication Question (questions about meds) 07/15/2018 Telephone [facility] [address] [facility] [place] [address] Social History Date Tobacco Use Types Packs/Day [...] Telephone Encounter - Melissa Cortez RN - 07/15/2018 2:05 PM HAND TUBE WINDER Called patient to discuss his questions. Patient states that he switched insurance and needs [facility] rx's [facility] Sent at this time. Patient has no further concerns or questions. TUBE WINDER * Telephone Encounter - Melissa Cortez RN - 07/15/2018 2:05 PM HAND TUBE WINDER ----- Message from Emilia Max sent at 07/15/2018 12:22 PM HAND TUBE WINDER ----- Regarding: MPE-Medications Patient would like a call back to discuss medications. [phone] TUBE WINDER documented in this encounter Plan of Treatment Not on filedocumented as of this encounter Visit Diagnoses Diagnosis PAF (paroxysmal atrial fibrillation) (HCC) Atrial fibrillation PVC's (premature ventricular contractions) Other premature beats Essential hypertension with goal blood pressure less than 130/80 Hyperlipidemia, unspecified hyperlipidemia type documented in this encounter
--- OUTSIDE RECORDS SUMMARY | 2019-01-04 18:40 | XMS REPORT | Encounter Summary ---
Author Author [facility] Organization [facility] Address Unknown Phone Unavailable Care Team Providers Care Computer Forensics Investigator Name Role Phone Namrata Bailey Unavailable Gabriella Knight RN Unavailable Unavailable Jorge Alberto Evans MD PCP Encounter Details Care Team Description Date Type Department Falguni Alfaro RN 07/26/2018 Telephone [facility] [address] [facility] [place] [id number] Social History Date Tobacco Use Types Packs/Day [...] encounter Miscellaneous Notes * Addendum Note - Ricki Ireland RN - 10/07/2018 11:43 AM CDT Addended by: INOCENTE IRELAND on: 10/07/2018 11:43 AM Modules accepted: Orders * Telephone Encounter - Ricki Ireland RN - 10/07/2018 11:15 AM CDT MPE- f/u on Eliquis Received: Today Call patient Message Contents Kayley Dorado LPN [facility] Nurse Serena ELIAS from patient on triage line. Said that he will start Eliquis in October due to caro deductible. Call back at home. I spoke with the Medication Decontamination Worker. She will send the patient the packet to fill out to apply for assistance from [employer]. Returned call. Informed him of above. I told him that I could send him the Free 30d Trial card. He was agreeable. Card mailed. Rx sent to [facility] [id number] per patient request. Will forward flag this note to October 19 to send Rx to patient's mail-order pharmacy . * Telephone Encounter - Falguni Alfaro RN - 07/26/2018 3:51 PM COMMUNICATIONS DIRECTOR returned call to Bj who is still very anxious about anticoagulation Eliquis is covered by his insurance and he feels the most comfortable with that drug but he still wants to think about starting the anticoagulation He appreciated Dr Muñoz talking to him in detail about the risk/benefit. Bj will c/b when he decides to start eliquis UNICATIONS DIRECTOR * Telephone Encounter - Falguni Alfaro RN - 07/26/2018 3:51 PM COMMUNICATIONS DIRECTOR ----- Message from Lisa Saenz LPN sent at 07/26/2018 6:56 AM COMMUNICATIONS DIRECTOR ----- Regarding: pt lm on my phone to call him about a blood thinner medication Said Wanda wanted him to start one and he has some questions. He is at the home number UNICATIONS DIRECTOR documented in this encounter Plan of Treatment Not on filedocumented as of this encounter Visit Diagnoses Not on filedocumented in this encounter
--- OUTSIDE RECORDS SUMMARY | 2019-01-04 18:40 | XMS REPORT | Encounter Summary ---
Author Author [facility] Organization [facility] Address Unknown Phone Unavailable Care Team Providers Care Ventilation Worker Name Role Phone Namrata Bailey Unavailable Gabriella Knight RN Unavailable Unavailable Jorge Alberto Evans MD PCP Encounter Details Care Team Description Date Type Department Сергей Muñoz MD [address] [facility] [place] [address] [phone] 08/08/2018 Hospital Cardiovascular Medicine Encounter Remote Device Check [phone] Social History Date Tobacco Use Types Packs/Day [...] Date/Time Associated Diagnosis DEVICE EVALUATION - Routine 08/09/2018 PAF (paroxysmal atrial REMOTE ILR 8:55 AM LEGAL JOB TITLES fibrillation) ([facility]) PVC's (premature ventricular contractions) Heart palpitations documented in this encounter Results * DEVICE EVALUATION - REMOTE ILR (08/09/2018 8:55 AM LEGAL JOB TITLES) Device Dr. Сергей Muñoz OTHER OUTSIDE Implanted By LAB Generator Model [id number] OTHER OUTSIDE # LAB Generator [id number] OTHER OUTSIDE Serial # LAB Generator 07/29/16 OTHER OUTSIDE Implnat Date LAB Remote Monitor [id number] OTHER OUTSIDE Serial# LAB LIA/EOL per transmitter OTHER OUTSIDE Indicator LAB Generator Medtronic OTHER OUTSIDE Telephone Clerks Supervisor LAB Wireless Yes OTHER OUTSIDE Generator LAB Device Type ILR OTHER OUTSIDE LAB Device [facility] OTHER OUTSIDE [place] [facility] Transmitter Compatible ILR History of yes [...] 6 mins OTHER OUTSIDE LAB ILR Current 08/08/18-09/07/18 OTHER OUTSIDE Monitoring LAB Period ILR Date of 08/08/18 OTHER OUTSIDE Last Daily LAB Connection ILR [...] Lifetime of Events as of ILR Presenting 08/08/18 @ 0004 SB 50's OTHER OUTSIDE ECG Strip LAB ILR Lifetime 08/08/18 OTHER OUTSIDE Events as of LAB Datetion Specimen Narrative Performed At OTHER OUTSIDE LAB No OAC [08/09/2018 8:56:57 AM - KATE SANTIAGO] Presenting EGM: 08/08/18 @ 0004 SB 50's. Summary report received [...]
--- OUTSIDE RECORDS SUMMARY | 2019-01-04 18:40 | XMS REPORT | Encounter Summary ---
Author Author [facility] Organization [facility] Address Unknown Phone Unavailable Care Team Providers Care Central Aisle Cashier Name Role Phone Namrata Bailey Unavailable Gabriella Knight RN Unavailable Unavailable Jorge Alberto Evans MD PCP Encounter Details Care Team Description Date Type Department Сергей Muñoz MD [address] [facility] [place] [address] [phone] 09/08/2018 Hospital Cardiovascular Medicine Encounter Remote Device Check [phone] Social History Date Tobacco Use Types Packs/Day [...] Date/Time Associated Diagnosis DEVICE EVALUATION - Routine 09/09/2018 Cardiac device in situ REMOTE ILR 12:36 PM CDT PAF (paroxysmal atrial fibrillation) (HCC) documented in this encounter Results * DEVICE EVALUATION - REMOTE ILR (09/09/2018 12:36 PM CDT) Device Dr. Сергей Muñoz OTHER OUTSIDE Implanted By LAB Generator Model [id number] OTHER OUTSIDE # LAB Generator [id number] OTHER OUTSIDE Serial # LAB Generator 07/29/16 OTHER OUTSIDE Implnat Date LAB Remote Monitor [id number] OTHER OUTSIDE Serial# LAB LIA/EOL per transmitter OTHER OUTSIDE Indicator LAB Generator Medtronic OTHER OUTSIDE Production Posting Clerk LAB Wireless Yes OTHER OUTSIDE Generator LAB Device Type ILR OTHER OUTSIDE LAB Device [facility] OTHER OUTSIDE [place] LAB Transmitter Compatible ILR History of yes [...] documented in this encounter Visit Diagnoses Diagnosis Cardiac device in situ Unspecified cardiac device in situ PAF (paroxysmal atrial fibrillation) (HCC) Atrial fibrillation documented in this encounter
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
--- NOTE | 2019-01-04 19:06 | NUR ---
APPARANTELY DR WANTED LR BOLUS AND EMS LITER BOLUS WHICH IS GOING NOW.
--- NOTE | 2019-01-04 19:06 | NUR ---
REPORT FROM TINA GODFREY.
--- NOTE | 2019-01-04 19:43 | Diagnostic Imaging Report ---
INDICATION: Fell from a ladder, landed on left side. Pain. EXAMINATION: CT brain and CT cervical spine, 01/04/2019. COMPARISON: Correlation made to a prior CT of the brain from 08/10/2009. FINDINGS: CT BRAIN: There is no evidence for acute hemorrhage, mass effect or midline shift. There is a focal area of encephalomalacia within the right posterior parietal lobe causing ex vacuo dilatation of the adjacent right lateral ventricle. Other chronic ischemic changes are seen. No acute infarct is noted. Within the suprasellar cistern there is a large low-density region which appears to extend into the cavernous sinuses, bilaterally. Although volume averaging is a possibility, this has the appearance of a possible mass and nonemergent MRI with and without contrast could further characterize this finding. The sinuses demonstrate bilateral small air-fluid levels. This is predominantly in the maxillary sinuses. Partial opacification of the ethmoid air cells is also seen. No calvarial fracture is visualized. IMPRESSION: 1. No acute intracranial process with chronic findings as above. 2. Possible mass in the suprasellar cistern, see above discussion and recommendations. CT CERVICAL SPINE: There is normal height and alignment of the vertebral bodies. There is bilateral facet hypertrophy throughout the cervical spine, bilaterally. Multilevel spur disc complexes are also noted but no acute fracture is seen. The prevertebral soft tissues appear unremarkable. Lung apices are unremarkable. IMPRESSION: Multilevel diffuse degenerative disease. No acute osseous abnormality appreciated. Other findings as above. Dictated by: Dictated on workstation # [id number]
--- NOTE | 2019-01-04 20:03 | Diagnostic Imaging Report ---
INDICATION: Fell second step of a ladder, pain EXAMINATION: Chest dated 01/04/2019 FINDINGS: A recorder device overlies the left chest. Heart is prominent. Pulmonary vasculature is unremarkable. No pneumothorax or infiltrates. No effusions. No displaced fractures visualized. IMPRESSION: No acute process. Dictated by: Dictated on workstation # [id number]
--- NOTE | 2019-01-04 20:11 | Diagnostic Imaging Report ---
INDICATION: Fell off a second step of ladder, pelvic pain. EXAMINATION: Left hip/pelvis, 01/04/2019. FINDINGS: A frontal view of the pelvis with four views of the left hip. There is a fracture of the left proximal femur which appears to involve the mid femoral neck. There is questioned vertical extension into the intertrochanteric region as well. The crosstable lateral views are very limited due to overlying soft tissues. No dislocation. Degenerative findings are seen in both hips. IMPRESSION: Fracture through the left mid femoral neck with questioned extension into the intertrochanteric region difficult to exclude on these images. Dictated by: Dictated on workstation # [id number]
[2019-01-04] MEDS ORDERED: fentaNYL INJECTION 100 MCG/2 ML AMP IVP PRN (20:15)
--- NOTE | 2019-01-04 20:15 | NUR ---
PT BACK FROM XR/CT. PT ALERT GCS 15 HERE WITH . PAIN RATING 6 TO LEFT HIP. BP MACHINE IS 137/83 AUSC HR 64 REG AUSC RESP 16 NORMAL RECHECK TEMP 99.6 P OX R/A IS 99. TELE SHOWS SR 69. NO ACUTE SIGHNS OF DYSPNEA NOTED.
--- NOTE | 2019-01-04 20:25 | NUR ---
2ND IV SITE BY ME X 1 20 G RIGHT HAND. LABS DRAWN AND SENT TO LAB BY ME FROM THE IV SITE. NS BOLUS 1/2 COMPLETED AND LR BOLUS GOING WELL NOW.
[2019-01-04 20:33] LABS: BASOPHILS % (AUTO) 0 % (0-10); EOSINOPHILS % (AUTO) 0 % (0-10); HEMATOCRIT 44 % (40-54); HEMOGLOBIN 15.1 G/DL (13.3-17.7); LYMPHOCYTES # (AUTO) 1.2 X 10^3 (1.0-4.0); LYMPHOCYTES % (AUTO) 11 % (12-44); MEAN CORPUSCULAR HEMOGLOBIN 30 PG (25-34); MEAN CORPUSCULAR HGB CONC 35 G/DL (32-36); MEAN CORPUSCULAR VOLUME 88 FL (80-99); MEAN PLATELET VOLUME 8.3 FL (7.4-10.4); MONOCYTES # (AUTO) 0.9 X 10^3 (0.0-1.0); MONOCYTES % (AUTO) 9 % (0-12); NEUTROPHILS # (AUTO) 8.7 X 10^3 (1.8-7.8); NEUTROPHILS % (AUTO) 80 % (42-75); PLATELET COUNT 164 10^3/uL (130-400); RED CELL DISTRIBUTION WIDTH 13.2 % (10.0-14.5); WHITE BLOOD COUNT 10.8 10^3/uL (4.3-11.0)
[2019-01-04 20:45] LABS: INR 1.1 (0.8-1.4); PROTHROMBIN TIME PATIENT 14.9 SEC (12.2-14.7)
[2019-01-04 20:53] LABS: ALANINE AMINOTRANSFERASE 30 U/L (0-55); ALBUMIN 4.5 GM/DL (3.2-4.5); ALKALINE PHOSPHATASE 72 U/L (40-136); BILIRUBIN,TOTAL 0.8 MG/DL (0.1-1.0); BUN/CREATININE RATIO 20; CALCIUM 9.3 MG/DL (8.5-10.1); CARBON DIOXIDE 21 MMOL/L (21-32); CREATININE SERUM 1.18 MG/DL (0.60-1.30); GFR ESTIMATED > 60; GLUCOSE 95 MG/DL (70-105); TOTAL PROTEIN 6.1 GM/DL (6.4-8.2)
--- NOTE | 2019-01-04 20:55 | NUR ---
I JUST CALLED REPORT TO ADMIT NURSE ANSON. SOMEONE WILL TAKE PT TO ADMIT ROOM TRAY. LITER BOLUS NS COMPLETED AND LR BOLUS ON A PUMP CONTINUES TO FLOOR.
--- NOTE | 2019-01-04 21:00 | NUR ---
LR BOLUS IS COMPLETED WELL.
--- NOTE | 2019-01-04 21:04 | NUR ---
I AM TAKING PT TO ADMIT ROOM NOW.
[2019-01-04 21:05] LABS: CHLORIDE 108 MMOL/L (98-107); POTASSIUM 4.1 MMOL/L (3.6-5.0); SODIUM 139 MMOL/L (135-145)
--- NOTE | 2019-01-04 21:18 | NUR ---
CAITLIN COX admitted to room 414-1, with an admitting diagnosis of LEFT HIP FX, on 01/04/19 from ED via STRETCHER, accompanied by ED STAFF AND .CAITLIN COX introduced to surroundings, call light, bed controls, phone, TV, temperature control, lights, meal times, smoking policy, visitor policy, side rail policy, bathrooms and showers. Patient Rights given to patient in the handbook. CAITLIN COX verbalizes understanding that [facility] is not responsible for the loss or damage to any personal effects or valuables that are kept in the patients posession during their hospitalization. Patient Care Plans were discussed with the PT. CAITLIN COX verbalizes understanding of Interdisciplinary Patient Education. Patient and/or family were informed about the Rapid Response Team and its purpose.
[2019-01-04 21:29] VITALS: BP 167/74
[2019-01-04] MEDS ORDERED: D5 1/2 NS W/KCL 20 MEQ/L 1,000 ML IV ONE (21:47)
[2019-01-04] MEDS: D5 1/2 NS W/KCL 20 MEQ/L 1,000 ML IV SCH (21:50)
[2019-01-04 23:51] VITALS: BP 142/70
[2019-01-04] MEDS: fentaNYL INJECTION 100 MCG/2 ML AMP IV PRN (23:51)
[2019-01-05 03:49] VITALS: BP 146/70
[2019-01-05] MEDS: fentaNYL INJECTION 100 MCG/2 ML AMP IV PRN (04:42)
[2019-01-05 06:18] LABS: BASOPHILS % (AUTO) 0 % (0-10); EOSINOPHILS # (AUTO) 0.1 10^3/uL (0.0-0.3); EOSINOPHILS % (AUTO) 1 % (0-10); HEMATOCRIT 44 % (40-54); HEMOGLOBIN 15.6 G/DL (13.3-17.7); LYMPHOCYTES # (AUTO) 0.9 X 10^3 (1.0-4.0); LYMPHOCYTES % (AUTO) 11 % (12-44); MEAN CORPUSCULAR HEMOGLOBIN 31 PG (25-34); MEAN CORPUSCULAR HGB CONC 35 G/DL (32-36); MEAN CORPUSCULAR VOLUME 88 FL (80-99); MEAN PLATELET VOLUME 8.5 FL (7.4-10.4); MONOCYTES # (AUTO) 0.7 X 10^3 (0.0-1.0); MONOCYTES % (AUTO) 9 % (0-12); NEUTROPHILS # (AUTO) 6.6 X 10^3 (1.8-7.8); NEUTROPHILS % (AUTO) 79 % (42-75); PLATELET COUNT 157 10^3/uL (130-400); RED CELL DISTRIBUTION WIDTH 13.2 % (10.0-14.5); WHITE BLOOD COUNT 8.4 10^3/uL (4.3-11.0)
[2019-01-05 06:31] LABS: INR 1.1 (0.8-1.4); PROTHROMBIN TIME PATIENT 14.5 SEC (12.2-14.7)
[2019-01-05] MEDS ORDERED: ONDANSETRON 4 MG/2 ML (SDV) Z0FRAN ONE (06:48)
--- NOTE | 2019-01-05 06:50 | NUR ---
PT C/O NAUSEA. DR MCMULLEN NOTIFIED AND NEW ORDERS RECEIVED
[2019-01-05 06:54] LABS: ALANINE AMINOTRANSFERASE 26 U/L (0-55); ALBUMIN 4.3 GM/DL (3.2-4.5); ALKALINE PHOSPHATASE 71 U/L (40-136); BILIRUBIN,TOTAL 1.4 MG/DL (0.1-1.0); BUN/CREATININE RATIO 19; CALCIUM 8.9 MG/DL (8.5-10.1); CARBON DIOXIDE 22 MMOL/L (21-32); CHLORIDE 105 MMOL/L (98-107); CREATININE SERUM 0.88 MG/DL (0.60-1.30); GFR ESTIMATED > 60; GLUCOSE 129 MG/DL (70-105); POTASSIUM 3.9 MMOL/L (3.6-5.0); SODIUM 136 MMOL/L (135-145); TOTAL PROTEIN 6.8 GM/DL (6.4-8.2)
[2019-01-05] MEDS: ONDANSETRON 4 MG/2 ML (SDV) Z0FRAN IVP PRN ×4 (06:56→23:14)
[2019-01-05 07:45] VITALS: BP 153/74
[2019-01-05] MEDS: HYDROmorphone 2 MG/ML VIAL (DILAUDID) IV PRN ×4 (08:22→23:15)
[2019-01-05] MEDS ORDERED: PROMETHAZINE INJ 25 MG/ML (PHENERGAN) AMP ONE (08:28)
[2019-01-05] MEDS ORDERED: PROMETHAZINE INJ 25 MG/ML (PHENERGAN) AMP IVP PRN (08:30)
--- NOTE | 2019-01-05 08:37 | NUR ---
PATIENT HAD HIS MEDICATION BOTTLES WITH HIM FROM [facility] AND VERIFIED HOW HE TAKES THEM. BOTTLES: 09-26-18 METOPROLOL SUCCINATE 50MG 1 & 1/2 DAILY #135 09-26-18 BENAZEPRIL 40MG DAILY #90 09-26-18 FLECAINIDE 100MG BID #180 09-26-18 CLONIDINE 0.1MG TID #270 07-21-18 AMLODIPINE 10MG DAILY #90 (TAKES AT 1500, HAD 5MG FROM BEFORE AND TOOK TWO OF THEM UNTIL THEY WERE GONE THAT IS WHY 10MG IS PAST DUE FOR REFILL) 07-18-18 MEXILETINE 150MG 2 AM 2 5PM 1 HS #169 (ONLY TAKES 2 BID) ADDITIONALLY HE STATES HE TAKES LIPITOR, I CALLED [facility] AND VERIFIED HE FILLED LIPITOR 10MG DAILY #90 09-26-18. HE DOES NOT HAVE HIS POONAM SELTZER, LIPITOR, OR ELIQUIS HERE WITH HIM BUT HAS THE OTHER MEDICATION BOTTLES. HE ALSO FILLED ELIQUIS 5MG BID #60 10-27-18 - HE STATES IN JUNE THE TOLD HIM HE WANTED TO PUT HIM ON ELIQUIS, HE STATED HE HAD TO THINK ABOUT IT BECAUSE TAKING ELIQUIS SCARES HIM. HE STATES HE DID NOT START TO TAKE IT UNTIL OCTOBER. HE HAD RECEIVED A FREE 30 DAY SUPPLY AND HIS SISTER HAD SEVERAL SAMPLES OF THE SAME STRENGTH SHE GAVE TO HIM. HE STATES HE HAS BEEN TAKING IT BID SINCE OCTOBER BUT THAT IS WHY THE PHARMACY DOES NOT SHOW MORE RECENT REFILLS. HE TAKES POONAM SELTZER OTC PRN.
[2019-01-05] MEDS: D5 1/2 NS W/KCL 20 MEQ/L 1,000 ML IV SCH (08:38)
[2019-01-05] MEDS ORDERED: AMLO10TA7 PO (08:42)
[2019-01-05] MEDS ORDERED: NF-MEXI150 PO (08:42)
[2019-01-05] MEDS ORDERED: APIX5TAB PO (08:47)
[2019-01-05] MEDS ORDERED: [UNRECOGNIZED DRUG - CODE] PO (08:47)
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
[2019-01-05 12:29] VITALS: BP 149/72
[2019-01-05] MEDS ORDERED: cloNIDine 0.1 MG (CATAPRES) TAB PO SCH (13:00)
[2019-01-05] MEDS ORDERED: LIDOCAINE UROJET 2% GEL 10 ML PKG ONE (13:15)
[2019-01-05] MEDS ORDERED: PATIENT MAY USE OWN MEDS, ALL MC SCH (13:30)
--- NOTE | 2019-01-05 14:10 | NUR ---
Pastoral care viist, pt w/ by bedside, coping well.
[2019-01-05] MEDS ORDERED: amLODIPine 10 MG (NORVASC) TAB PO SCH (15:00)
[2019-01-05 15:50] VITALS: BP 142/67
[2019-01-05] MEDS: amLODIPine 10 MG (NORVASC) TAB PO SCH (16:25)
[2019-01-05] MEDS: ATORVASTATIN 10 MG (LIPITOR) TABLET PO SCH (16:27)
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
--- NOTE | 2019-01-05 19:07 | Progress Note ---
Standard Progress Note Progress Notes/Assess & Plan Time Seen by a Provider: 00:00 Progress/Assessment & Plan 63 y/o male Left hip injury secondary to low fall from a ladder. Radiographs demonstrate minimally displaced fracture Left femoral neck. Injury will need operative stabilization Eliquis will need to be held for 48hrs prior to surgery. Will plan for surgery tomorrow. HARRISON fraga. SALVADOR KHAN DO Jan 05, 2019 19:07
[2019-01-05] MEDS: cloNIDine 0.1 MG (CATAPRES) TAB PO SCH (20:23)
[2019-01-05] MEDS: MEXILETINE 150 MG (MEXITIL) CAPSULE PO SCH (20:23)
[2019-01-05] MEDS: FLECAINIDE 100 MG (TAMBOCOR) TAB PO SCH (20:24)
[2019-01-05 20:26] VITALS: BP 142/67
[2019-01-05] MEDS ORDERED: FLECAINIDE 100 MG (TAMBOCOR) TAB PO SCH (21:00)
[2019-01-05] MEDS ORDERED: MEXILETINE 150 MG (MEXITIL) CAPSULE PO SCH (21:00)
[2019-01-06] VITALS (13 sets, daily range): BP systolic 98–144; BP diastolic 54–72
--- NOTE | 2019-01-06 00:20 | NUR ---
pt temperature 100.5, wet washcloth applied. Cool down the room. Will continuo to monitor
[2019-01-06] MEDS: D5 1/2 NS W/KCL 20 MEQ/L 1,000 ML IV SCH ×2 (00:36→20:42)
[2019-01-06] MEDS: HYDROmorphone 2 MG/ML VIAL (DILAUDID) IV PRN ×2 (03:17→07:56)
[2019-01-06] MEDS: ONDANSETRON 4 MG/2 ML (SDV) Z0FRAN IVP PRN ×2 (03:17→07:56)
[2019-01-06] MEDS: MEXILETINE 150 MG (MEXITIL) CAPSULE PO SCH ×2 (09:00→20:37)
[2019-01-06] MEDS: BENAZEPRIL 40 MG PO SCH (09:00)
[2019-01-06] MEDS ORDERED: meTOproloL SUCCINATE 50 MG (TOPROL XL) TAB PO SCH (09:00)
[2019-01-06] MEDS: meTOproloL SUCCINATE 50 MG (TOPROL XL) TAB PO SCH (09:00)
[2019-01-06] MEDS ORDERED: lisINopril 40 MG (PRINIVIL) TABLET PO SCH (09:00)
[2019-01-06] MEDS: cloNIDine 0.1 MG (CATAPRES) TAB PO SCH ×3 (09:00→20:37)
[2019-01-06] MEDS: FLECAINIDE 100 MG (TAMBOCOR) TAB PO SCH ×2 (09:00→20:37)
--- NOTE | 2019-01-06 10:48 | Progress Note - Hospitalist ---
Subjective HPI/CC On Admission Date Seen by Provider: Jan 06, 2019 Time Seen by Provider: 10:43 Pt is a 63yoCM with a PMH of a-fib on chronic anticoagulation and HTN who presented to the ER after a fall off a ladder. He was on the second rung of a ladder while power washing his house and slipped and fell on his hip. He did not hit his head or suffer from LOC. He was unable to bear any weight on his left leg and EMS was called. Imaging revealed left femoral neck fracture. He is on chronic anticoagulation with Eliquis his last dose was yesterday morning around 9 a.m. Orthopedic surgery was consulted and would like to proceed with surgery after 48 hours off anticoagulation. He was admitted for pain control in preparation of surgery. Subjective/Events-last exam Pt is sleeping but awakens easily. No complaints at this time. Ready for surgery. Objective Exam Vital Signs Vital Signs Date Time Temp Pulse Resp B/P (MAP) Pulse Ox O2 Delivery O2 Flow Rate FiO2 01/06/19 07:00 92 01/06/19 04:00 99.1 20 138/72 (94) 90 Room Air Capillary Refill : Less Than 3 SecondsLess Than 3 Seconds General Appearance: No Apparent Distress, WD/WN Respiratory: Lungs Clear, No Accessory Muscle Use, No Respiratory Distress Cardiovascular: Regular Rate, Rhythm, No JVD, No Murmur Gastrointestinal: Normal Bowel Sounds, Non Tender, Soft Neurologic/Psychiatric: Alert, Oriented x3 Results/Procedures Lab Patient resulted labs reviewed. Imaging: Reviewed Imaging Report Assessment/Plan Assessment and Plan Assess & Plan/Chief Complaint left femoral neck fracture Diagnosis/Problems Diagnosis/Problems (1) Closed left hip fracture Status: Acute Assessment & Plan: Orthopedic Surgery consulted, appreciate recs Plan for surgery today Will need PT/OT postop Will likely be appropriate candidate for IRU postop Qualifiers: Encounter type: initial encounter Qualified Codes: S72.002A - Fracture of unspecified part of neck of left femur, initial encounter for closed fracture (2) Atrial fibrillation Status: Chronic Assessment & Plan: Cardiology consulted, appreciate recs Hold anticoagulation for surgery Continue home meds Cardiology consulted, appreciate Qualifiers: Atrial fibrillation type: chronic Qualified Codes: I48.2 - Chronic atrial fibrillation (3) Essential (primary) hypertension Status: Chronic Assessment & Plan: Cont home meds (4) Hyperlipidemia Assessment & Plan: Cont home statin Qualifiers: Hyperlipidemia type: unspecified Qualified Codes: E78.5 - Hyperlipidemia, unspecified (5) Pre-op exam Assessment & Plan: Intermediate risk Discussed with patient increased risk off anticoagulation for stroke and need for surgical repair, expresses understanding Clinical Quality Measures DVT/VTE Risk/Contraindication: Risk Factor Score Per Nursin RFS Level Per Nursing on Admit: 4+=Very High LUZ RODAS MD Jan 06, 2019 10:48
[2019-01-06] MEDS: fentaNYL INJECTION 100 MCG/2 ML AMP IV PRN (11:25)
--- NOTE | 2019-01-06 12:40 | Cardiology Progress Note ---
Cardiology SOAP Progress Note Subjective: No cardiac complaints. Objective: I&O/Vital Signs 01/06/19 01/06/19 01/06/19 01/06/19 01:00 04:00 07:00 08:00 Temp 99.1 Pulse 95 100 92 Resp 20 B/P (MAP) 138/72 (94) Pulse Ox 90 O2 Delivery Room Air Room Air 01/06/19 08:00 Temp 102.9 Pulse 96 Resp 18 B/P (MAP) 113/72 (86) Pulse Ox 92 O2 Delivery Room Air 01/06/19 00:00 Intake Total 800 ml Output Total 2775 ml Balance -1975 ml Weight (Pounds): 249 Weight (Ounces): 5.6 Weight (Calculated Kilograms): 113.975401 Constitutional: appears stated age; No apparent distress; well-developed, well- nourished Respiratory: chest is bilaterally symmetric, lungs clear to auscultation Cardiovascular: regular rate-rhythm; No irregularly irregular, No extra beats, No parasternal heave is noted, No JVD, No edema, No bradycardia, No tachycardia, No point of maximal impulse, No cardiac thrills are palpable; S1 and S2; No gallop/S3, No gallop/S4, No diastolic murmur, No systolic murmur, No friction rub, No click, No other Gastrointestional: No tender, No soft, No round, No distended, No pulsatile mass, No organomegaly, No guarding, No rebound, No tenderness, No hernia, No mass, No audible bowel sounds, No abnormal bowel sounds, No abdominal bruits, No spleenomegaly, No other Extremities: No normal range of motion, No non-tender, No normal inspection, No pedal edema, No calf tenderness, No normal capillary refill, No pelvis stable, No calf tenderness, No inflammation, No pedal edema, No slow capillary refill, No swelling, No other, No abrasion, No clubbing, No cyanosis, No ecchymosis, No laceration, No no lower extremity edema bilateral, No significant edema; tenderness; No wound Neurologic/Psychiatric: no motor/sensory deficits, alert, normal mood/affect, oriented x 3, power is 5/5 both on sides Skin: No normal color, No warm/dry, No cyanosis, No cool, No diaphoresis, No damp, No ecchymosis, No jaundice, No mottled, No pallor, No rash, No tattoos/piercings, No ulcerations, No rash on exposed areas, No ulcerations on exposed areas, No other A/P: Assessment/Dx: Preoperative cardiovascular risk assessment, Paroxysmal atrial fibrillation, Left femoral head fracture. Plan: The patient will be considered at intermediate risk for perioperative major adverse cardiac events undergoing an intermediate risk noncardiac surgery. I see no cardiac contraindication to the above-mentioned procedure. Patient understands the risk and would like to proceed with the surgery. Hold oral anticoagulation in anticipation of surgery. We will oral anticoagulation post surgery once okay with orthopedic team. Continue flecainide and mexiletine for now. Thank you for your consultation. Please call me if you have any questions. Anette Calderón MD, FACP, FACC, FSCAI, FHRS, CCDS Interventional Cardiology Cardiac Electrophysiology Vascular Medicine and Endovascular Interventions Laura CALEDRÓN MD Jan 06, 2019 12:40 pm
[2019-01-06] MEDS ORDERED: ONDANSETRON 4 MG/2 ML (SDV) Z0FRAN ONE (13:38)
[2019-01-06] MEDS ORDERED: proPOfol 200 MG/20 ML (DIPRIVAN) VIAL IV ONE (13:38)
[2019-01-06] MEDS ORDERED: LIDOCAINE PF 2% 5 ML (XYLOCAINE) VIAL ONE (13:38)
[2019-01-06] MEDS ORDERED: MIDAZOLAM 2 MG/2 ML (VERSED) VIAL ONE (13:39)
[2019-01-06] MEDS ORDERED: fentaNYL INJECTION 100 MCG/2 ML AMP ONE (13:40)
[2019-01-06] MEDS ORDERED: ROCURONIUM 10 MG/ML 5 ML SYRINGE IV ONE (13:48)
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
[2019-01-06] MEDS ORDERED: ceFAZolin INJECTION 2,000 MG ONE (14:02)
--- NOTE | 2019-01-06 14:05 | NUR ---
Patient off floor to surgery at this time.
[2019-01-06] MEDS: LACTATED RINGERS 1,000 ML IV PRN ×2 (14:16→15:58)
[2019-01-06] MEDS ORDERED: ceFAZolin 2 GM/50 ML NS 50 ML IV ONE (14:30)
[2019-01-06] MEDS: amLODIPine 10 MG (NORVASC) TAB PO SCH (15:00)
[2019-01-06] MEDS ORDERED: BUPIVACAINE 0.5% 30 ML (SENSORCAINE) VIAL ONE (15:00)
[2019-01-06] MEDS: ATORVASTATIN 10 MG (LIPITOR) TABLET PO SCH (15:00)
[2019-01-06] MEDS ORDERED: morphine INJ 10 MG/ML 1ML (SYR OR VIAL) ONE (15:53)
--- NOTE | 2019-01-06 16:53 | Diagnostic Imaging Report ---
INDICATION: ORIF of left femoral neck fracture. COMPARISON: None available. FINDINGS AND IMPRESSION: Two fluoroscopic images were obtained during fixation of left femoral neck fracture. These demonstrate placement of three percutaneous partially-threaded lag screws through the femoral neck, reducing the fracture. A total of 200.6 seconds or fluoroscopy was utilized for this procedure performed by Dr. Godoy. Please see operative report for complete details. Dictated by: Dictated on workstation # [id number]
--- NOTE | 2019-01-06 16:54 | Progress Note-Post Operative ---
Post-Operative Progess Note Surgeon (s)/Laser Systems Engineer (s) Surgeon SALVADOR KHAN DO Laser Systems Engineer: None Pre-Operative Diagnosis Left femoral neck fracture Post-Operative Diagnosis Same Procedure & Operative Findings Date of Procedure 01/06/19 Procedure Performed/Findings Closed reduction/internal fixation Left femoral neck fracture Anesthesia Type GETA Estimated Blood Loss Estimated blood loss (mL): 100mL Specimens/Packing Specimens Removed None Packing: Complications: none Drains: none Disposition: stable, to PACU in stable condition SALVADOR KHAN DO Jan 06, 2019 16:54
[2019-01-06] MEDS ORDERED: MEPERIDINE (DEMEROL) INJ 50 MG/ML IVP ONE (17:00)
[2019-01-06] MEDS ORDERED: ONDANSETRON 4 MG/2 ML (SDV) Z0FRAN IVP PRN (17:00)
[2019-01-06] MEDS ORDERED: fentaNYL INJECTION 100 MCG/2 ML AMP IVP ONE (17:00)
[2019-01-06] MEDS ORDERED: PROMETHAZINE INJ 25 MG/ML (PHENERGAN) AMP IVP ONE (17:00)
--- NOTE | 2019-01-06 17:50 | NUR ---
Patient back in room from recovery at this time. Report received from Cherelle GODFREY, will assume care of patient at this time.
[2019-01-06] MEDS: ceFAZolin INJECTION 3,000 MG in NS (IVPB) 50 ML IV SCH (20:38)
[2019-01-07] VITALS: BP 97/61
[2019-01-07] MEDS: HYDROmorphone 2 MG/ML VIAL (DILAUDID) IV PRN (03:14)
[2019-01-07] MEDS: ONDANSETRON 4 MG/2 ML (SDV) Z0FRAN IVP PRN (03:15)
[2019-01-07] MEDS: HYDROcodone/APAP 5 MG/325 MG (LORTAB) TAB PO PRN ×2 (03:50→09:01)
[2019-01-07 04:00] VITALS: BP 130/73
[2019-01-07] MEDS: ceFAZolin INJECTION 3,000 MG in NS (IVPB) 50 ML IV SCH (05:17)
[2019-01-07 08:00] VITALS: BP 125/67
[2019-01-07] MEDS: MEXILETINE 150 MG (MEXITIL) CAPSULE PO SCH ×2 (08:51→18:33)
[2019-01-07] MEDS: FLECAINIDE 100 MG (TAMBOCOR) TAB PO SCH ×2 (08:52→20:51)
[2019-01-07] MEDS: BENAZEPRIL 40 MG PO SCH (08:52)
[2019-01-07] MEDS: meTOproloL SUCCINATE 50 MG (TOPROL XL) TAB PO SCH (08:53)
[2019-01-07] MEDS: cloNIDine 0.1 MG (CATAPRES) TAB PO SCH ×3 (08:53→20:51)
[2019-01-07] MEDS: D5 1/2 NS W/KCL 20 MEQ/L 1,000 ML IV SCH ×3 (09:00→23:49)
--- NOTE | 2019-01-07 10:25 | Progress Note ---
Standard Progress Note Progress Notes/Assess & Plan Date Seen by a Provider: Jan 07, 2019 Time Seen by a Provider: 10:22 Progress/Assessment & Plan Pt ISRA, doing well, pain controlled, no complaints today VSSAF Labs stable LLE: dressing c/d/i, all compartments soft/compressible, motor/sensation grossly intact, foot well perfused. S/P Closed reduction/internal fixation Left femoral neck fracture, POD #1 Orthopedically stable PT/OT daily, WBAT LLE OK to restart Eliquis TEDS/SCDS/ISB Current pain control regimen OK with trans to rehab from ortho standpoint Questions answered Instructions given Vitals Signs Temperature: 97.4, Source: Temporal, Heart Rate: 64, Respiratory Rate: 16, BP: 125/67, Pulse Oximetry: 94 Laboratory Tests 01/07/19 04:28 SALVADOR KHAN DO Jan 07, 2019 10:25
--- NOTE | 2019-01-07 11:16 | Progress Note - Hospitalist ---
Subjective HPI/CC On Admission Date Seen by Provider: Jan 07, 2019 Time Seen by Provider: 11:14 Pt is a 63yoCM with a PMH of a-fib on chronic anticoagulation and HTN who presented to the ER after a fall off a ladder. He was on the second rung of a ladder while power washing his house and slipped and fell on his hip. He did not hit his head or suffer from LOC. He was unable to bear any weight on his left leg and EMS was called. Imaging revealed left femoral neck fracture. He is on chronic anticoagulation with Eliquis his last dose was yesterday morning around 9 a.m. Orthopedic surgery was consulted and would like to proceed with surgery after 48 hours off anticoagulation. He was admitted for pain control in preparation of surgery. Subjective/Events-last exam Pt reports feeling better today. Pain well controlled. Objective Exam Vital Signs Vital Signs Date Time Temp Pulse Resp B/P (MAP) Pulse Ox O2 Delivery O2 Flow Rate FiO2 01/07/19 08:00 97.4 64 16 125/67 (86) 94 Room Air 01/07/19 04:00 3.00 Capillary Refill : Less Than 3 SecondsLess Than 3 Seconds General Appearance: No Apparent Distress, WD/WN Respiratory: No Accessory Muscle Use, No Respiratory Distress Extremity: No Calf Tenderness, No Pedal Edema, Other (felipe hose in place) Neurologic/Psychiatric: Alert, Oriented x3, Normal Mood/Affect Results/Procedures Lab Laboratory Tests 01/07/19 04:28 Patient resulted labs reviewed. Imaging: Reviewed Imaging Report Assessment/Plan Assessment and Plan Assess & Plan/Chief Complaint left femoral neck fracture Diagnosis/Problems Diagnosis/Problems (1) Closed left hip fracture Status: Acute Assessment & Plan: POD #1 Ortho consulted, appreciate recs PT/OT Will likely be appropriate candidate for IRU postop Qualifiers: Encounter type: initial encounter Qualified Codes: S72.002A - Fracture of unspecified part of neck of left femur, initial encounter for closed fracture (2) Atrial fibrillation Status: Chronic Assessment & Plan: Cardiology consulted, appreciate recs Eliquis resumed today Continue home meds Cardiology consulted, appreciate Qualifiers: Atrial fibrillation type: chronic Qualified Codes: I48.2 - Chronic atrial fibrillation (3) Essential (primary) hypertension Status: Chronic Assessment & Plan: Cont home meds (4) Hyperlipidemia Assessment & Plan: Cont home statin Qualifiers: Hyperlipidemia type: unspecified Qualified Codes: E78.5 - Hyperlipidemia, unspecified Clinical Quality Measures DVT/VTE Risk/Contraindication: Risk Factor Score Per Nursin RFS Level Per Nursing on Admit: 4+=Very High LUZ RODAS MD Jan 07, 2019 11:16
[2019-01-07 12:00] VITALS: BP 110/63
[2019-01-07] MEDS: amLODIPine 10 MG (NORVASC) TAB PO SCH (12:59)
--- NOTE | 2019-01-07 13:01 | Occupational Therapy Eval ---
OT Evaluation-General/PLF Medical Diagnosis Admission Date Jan 04, 2019 at 19:55 Medical Diagnosis: Left Hip fx/Left ORIF Onset Date: Jan 04, 2019 Therapy Diagnosis Therapy Diagnosis: Weakness Height/Weight Height (Feet): 6 Height (Inches): 1.00 Weight (Pounds): 249 Weight (Ounces): 5.6 Precautions Precautions/Isolations: Fall Prevention, Standard Precautions Safety Interventions: None Weight Bear Status Weight Bearing Restriction: Weight Bearing/Tolerated Referral Physician: Dr. Godoy Referral Reason: Activity Tolerance, Self Care, Evaluation/Treatment, Strengthening/ROM Medical History Additional Medical History A-fib, TBI, Pituitary disease, Tib/Fib fx Current History Pt. fell and sustained hip fx. Came to ER. Able to have surgery after 48 hours, as he had been on blood thinner. Reviewed History: Yes Social History Home: Single Level Current Living Status: Spouse Entry Into Home: Stairs With Railing Steps Into Home: 3 ADL-Prior Level of Function Therapy Code Descriptions/Definitions Functional [place] Measure: 0=Not Assessed/NA 4=Minimal Assistance 1=Total Assistance 5=Supervision or Setup 2=Maximal Assistance 6=Modified [place] 3=Moderate Assistance 7=Complete [place] Therapy Quality Codes: 6 Independent with activity with or without an assistive device 5 Patient requires set up or clean up by helper. Patient completes activity by themselves 4 Supervision or touching assist (CGA). [place] provide cues , steadying assist 3 The helper provides less than half the effort to complete the activity 2 The helper provides more than half the effort to complete the activity 1 Dependent. The helper does all the effort to complete an activity 7 Patient refused to complete or attempt activity 9 The patient did not perform the activity before the current illness or injury 88 Not attempted due to Medical conditions or safety concerns Functional Abilities and Goals: Independent: Patient completed the activities by him/herself, with or without an assistive device, with no assistance from a helper. Needed Some Help: Patient needed partial assistance from another person to complete activities. Dependent: A helper completed the activities for the patient. Unknown: Not Applicable: ADL PLOF Comments Pt. was fully independent with daily tasks before this hospitalization. Self Care: Independent Functional Cognition: Independent DME/Equipment: Bath Bench, Tub/Shower DME/Equipment Comments Pt. has a walker and BSC at home. Occupation: Retired from [employer] Self: Yes OT Current Status Subjective Pt. states that he does not have much pain while seated in chair. With movement, reports that it is sore, but does not state pain level. Appearance Pt. is up in chair. Has already finished with PT. Agrees to work with OT. Mental Status/Objective Patient Orientation: Person, Place, Time, Situation Attachments: IV Current Upper Extremity ROM WFL Upper Extremity Strength WFL ADL-Treatment Therapy Code Descriptions/Definitions Functional [place] Measure: 0=Not Assessed/NA 4=Minimal Assistance 1=Total Assistance 5=Supervision or Setup 2=Maximal Assistance 6=Modified [place] 3=Moderate Assistance 7=Complete [place] Therapy Quality Codes: 6 Independent with activity with or without an assistive device 5 Patient requires set up or clean up by helper. Patient completes activity by themselves 4 Supervision or touching assist (CGA). [place] provide cues , steadying assist 3 The helper provides less than half the effort to complete the activity 2 The helper provides more than half the effort to complete the activity 1 Dependent. The helper does all the effort to complete an activity 7 Patient refused to complete or attempt activity 9 The patient did not perform the activity before the current illness or injury 88 Not attempted due to Medical conditions or safety concerns Lower Body Dressing (FIM): 3 (Pt. requires mod assist to doff/don slipper socks.) Toileting (FIM): 5 (Pt. states that he did have a BM last night, and that he was able to cleanse self.) Transfers (B, C, W/C) (FIM): 4 (Min assist to stand from chair. ) Other Treatments Spouse in room. Both vocalize concern that pt. will need more assist at home than spouse can provide. Both verbalize that spouse has had recent surgery herself, and will be unable to assist pt. with ADLs or transfers. Education OT Patient Education: Correct positioning, Modified ADL techniques, Progress toward Goal/Update tx plan, Purpose of tx/functional activities, Reviewed precautions, Rehab process, Transfer techniques Teaching Recipient: Patient Teaching Methods: Demonstration, Discussion Response to Teaching: Verbalize Understanding, Return Demonstration OT Short Term Goals Short Term Goals Time Frame: Jan 14, 2019 Eating(FIM): 5 Grooming(FIM): 5 Bathing(FIM): 4 Upper Body Dressing(FIM): 5 Lower Body Dressing(FIM): 5 Toileting(FIM): 5 Transfers (B,C,W/C) (FIM): 5 Toilet/Commode Transfer(FIM): 5 Shower Transfer(FIM): 4 Additional Short Term Goals: 1-Demonstrate ADL Tasks, 2-Verbalize Understanding, 3-ImproveStrength/Nataliya 1=Demonstrate adherence to instructed precautions during ADL tasks. 2=Patient will verbalize/demonstrate understanding of assistive devices/modifications for ADL. 3=Patient will improve strength/tolerance for activity to enable patient to perform ADL's. OT Health Information Tech Goals Shelter Goals Time Frame: Jan 21, 2019 Eating (FIM): 6 Grooming(FIM): 6 Bathing(FIM): 5 Upper Body Dressing(FIM): 6 Lower Body Dressing(FIM): 6 Toileting(FIM): 6 Transfers (B,C,W/C) (FIM): 6 Toilet/Commode Transfer(FIM): 6 Shower Transfer(FIM): 5 Additional Goals: 1-Demonstrate ADL Tasks, 2-Verbalize Understanding, 3- ImproveStrength/Nataliya 1=Demonstrate adherence to instructed precautions during ADL tasks. 2=Patient will verbalize/demonstrate understanding of assistive devices/modifications for ADL. 3=Patient will improve strength/tolerance for activity to enable patient to perform ADL's. OT Education/Plan Problem List/Assessment Assessment: Decreased Activ Tolerance, Dependent Transfers, Impaired Funct Balance, Impaired I ADL's, Impaired Self-Care Skills Discharge Recommendations Plan/Recommendations: Continue POC Therapy D/C Recommendations: Acute Rehab Equpiment Recommendations-D/C: Hip Kit Treatment Plan/Plan of Care Treatment,Training & Education: Yes Patient would benefit from OT for education, treatment and training to promote independence in ADL's, mobility, safety and/or upper extremity function for ADL's. Plan of Care: ADL Retraining, Functional Mobility, UE Funct Exercise/Act Treatment Duration: Jan 21, 2019 Frequency: 5 times per week Estimated Hrs Per Day: .5 hour per day Agreement: Yes Rehab Potential: Good Time/GCodes Start Time: 10:35 Stop Time: 10:50 Total Time Billed (hr/min): 15 Billed Treatment Time 1, SELAM LANDAVERDE OT Jan 07, 2019 13:01
[2019-01-07] MEDS: ATORVASTATIN 10 MG (LIPITOR) TABLET PO SCH (13:07)
--- NOTE | 2019-01-07 13:49 | Physical Therapy Evaluation ---
PT Evaluation-General Medical Diagnosis Admission Date Jan 04, 2019 at 19:55 Medical Diagnosis: Left Hip fx/Left ORIF Onset Date: Jan 04, 2019 Therapy Diagnosis Therapy Diagnosis: decreased mobility, L leg weakness Height/Weight Height (Feet): 6 Height (Inches): 1.00 Weight (Pounds): 249 Weight (Ounces): 5.6 Precautions Precautions/Isolations: Fall Prevention, Standard Precautions Weight Bear Status Right Lower Extremity: Right Full Weight Bearing Left Lower Extremity: Left Weight Bearing/Tolerated Referral Physician: Dr. Godoy Reason for Referral: Evaluation/Treatment Medical History Pertinent Medical History: Atrial Fib, HTN Current History Presented to ER following a fall off a ladder, sustained L femoral neck fracture with ORIF Reviewed History: Yes Social History Home: Single Level Current Living Status: Spouse Entry Into Home: Stairs With Railing PT Steps Into Home: 3 Prior/Core FIM Prior Level of Function Therapy Code Descriptions/Definitions Functional [place] Measure: 0=Not Assessed/NA 4=Minimal Assistance 1=Total Assistance 5=Supervision or Setup 2=Maximal Assistance 6=Modified [place] 3=Moderate Assistance 7=Complete [place] Therapy Quality Codes: 6 Independent with activity with or without an assistive device 5 Patient requires set up or clean up by helper. Patient completes activity by themselves 4 Supervision or touching assist (CGA). [place] provide cues , steadying assist 3 The helper provides less than half the effort to complete the activity 2 The helper provides more than half the effort to complete the activity 1 Dependent. The helper does all the effort to complete an activity 7 Patient refused to complete or attempt activity 9 The patient did not perform the activity before the current illness or injury 88 Not attempted due to Medical conditions or safety concerns Functional Abilities and Goals: Independent: Patient completed the activities by him/herself, with or without an assistive device, with no assistance from a helper. Needed Some Help: Patient needed partial assistance from another person to complete activities. Dependent: A helper completed the activities for the patient. Unknown: Not Applicable: Bed Mobility: 7 Transfers (B,C,W/C) (FIM): 7 Gait: 7 Stairs: 7 PT Evaluation-Current Subjective Pt. in bed and agrees to therapy. He denies pain. Pt/Family Goals home with spouse Objective Patient Orientation: Person, Place, Time, Situation Problem Solving: Good Attachments: IV ROM/Strength ROM Upper Extremities WNL ROM Lower Extremities WNL R LE, focal deficits L LE Strength Upper Extremities See OT Strength Lower Extremities Grossly 5/5 R LE, L LE not tested Integumentary/Posture Integumentary see nursing notes Bowel Incontinence: No Bladder Incontinence: No Posture generally upright Neuromuscular (Tone, Coordination, Reflexes) intact Sensory Vision: Functional Hearing: Functional Sensation Right Upper Extremit: Intact Sensation Left Upper Extremity: Intact Sensation Right Lower Extremit: Intact Sensation Left Lower Extremity: Intact Transfers Therapy Code Descriptions/Definitions Functional [place] Measure: 0=Not Assessed/NA 4=Minimal Assistance 1=Total Assistance 5=Supervision or Setup 2=Maximal Assistance 6=Modified [place] 3=Moderate Assistance 7=Complete [place] Transfers (B, C, W/C) (FIM): 3 Scootin Supine to/from Sit: 3 Sit to/from Stand: 3 bed to chair: CGA/min A Gait Mode of Locomotion: Walk Anticipated Mode of Locomotion: Walk Gait (FIM): 1 Distance (FIM): 1=up to 49 ft Distance: 5 ft Gait Level of Assist: 4 Gait Persons Needed: 1 Gait Assistive Device: FWW Balance Sitting Static: Good Sitting Dynamic: Good Standing Static: Fair Standing Dynamic: Fair Treatment transfers, L LE exercises while sitting in chair Assessment/Needs Pt. is a 63 y.o. male s/p L femoral neck with ORIF who presents with decreased mobility. Pt. required mod A with transferring to side of bed, min A/CGA with bed to chair transfer. He had difficulty moving L LE during transfers and gait. Pt. would benefit from skilled PT to improve mobility for return home with spouse. Rehab Potential: Good PT Short Term Goals Short Term Goals Transfers (B,C,W/C) (FIM): 5 PT Back Feeder Plywood Layup Line Goals Back Feeder Plywood Layup Line Goals PT Snf Goals Time Frame: Jan 14, 2019 Transfers (B,C,W/C) (FIM): 6 Gait (FIM): 6 Gait distance (FIM): 3=150 ft Distance: 150 Gait Level of Assist: 6 Gait Assistive Device: FWW Stairs (FIM): 2 # of Steps: 4 Stairs Level Of Assist: 4 PT Plan Problem List Problem List: Activity Tolerance, Functional Strength, Safety, Balance, Gait, Transfer, Bed Mobility, ROM Treatment/Plan Treatment Plan: Continue Plan of Care Treatment Plan: Bed Mobility, Education, Functional Activity Nataliya, Functional Strength, Gait, Safety, Therapeutic Exercise, Transfers Treatment Duration: Jan 14, 2019 Frequency: 11 times per week Estimated Hrs Per Day: .5 hour per day Patient and/or Family Agrees t: Yes Time/GCodes Time In: 947 Time Out: 1015 Total Billed Treatment Time: 28 Total Billed Treatment 1, EVLOWC 18', Ex 10' MARIZA MCCAIN PT Jan 07, 2019 13:49
--- NOTE | 2019-01-07 14:27 | Cardiology Progress Note ---
Cardiology SOAP Progress Note Subjective: No cardiac complaints. Post surgery. Objective: I&O/Vital Signs 01/07/19 01/07/19 01/07/19 01/07/19 04:00 07:00 08:00 08:00 Temp 98.4 97.4 Pulse 70 61 64 Resp 18 16 B/P (MAP) 130/73 (92) 125/67 (86) Pulse Ox 96 94 O2 Delivery Nasal Cannula Room Air Room Air O2 Flow Rate 3.00 01/07/19 01/07/19 12:00 13:00 Temp 97.1 Pulse 69 62 Resp 18 B/P (MAP) 110/63 (79) Pulse Ox 97 O2 Delivery Room Air 01/07/19 00:00 Intake Total 1630 ml Output Total 1475 ml Balance 155 ml Weight (Pounds): 249 Weight (Ounces): 5.6 Weight (Calculated Kilograms): 113.397924 Constitutional: appears stated age; No apparent distress; well-developed, well- nourished Respiratory: chest is bilaterally symmetric, lungs clear to auscultation Cardiovascular: regular rate-rhythm; No irregularly irregular, No extra beats, No parasternal heave is noted, No JVD, No edema, No bradycardia, No tachycardia, No point of maximal impulse, No cardiac thrills are palpable; S1 and S2; No gallop/S3, No gallop/S4, No diastolic murmur, No systolic murmur, No friction rub, No click, No other Gastrointestional: No tender, No soft, No round, No distended, No pulsatile mass, No organomegaly, No guarding, No rebound, No tenderness, No hernia, No mass, No audible bowel sounds, No abnormal bowel sounds, No abdominal bruits, No spleenomegaly, No other Extremities: No normal range of motion, No non-tender, No normal inspection, No pedal edema, No calf tenderness, No normal capillary refill, No pelvis stable, No calf tenderness, No inflammation, No pedal edema, No slow capillary refill, No swelling, No other, No abrasion, No clubbing, No cyanosis, No ecchymosis, No laceration, No no lower extremity edema bilateral, No significant edema; tenderness; No wound Neurologic/Psychiatric: no motor/sensory deficits, alert, normal mood/affect, oriented x 3, power is 5/5 both on sides Skin: No normal color, No warm/dry, No cyanosis, No cool, No diaphoresis, No damp, No ecchymosis, No jaundice, No mottled, No pallor, No rash, No tattoos/piercings, No ulcerations, No rash on exposed areas, No ulcerations on exposed areas, No other Results/Procedures: Labs Laboratory Tests 01/07/19 04:28: Hemoglobin 14.0, Hematocrit 41 A/P: Assessment/Dx: Preoperative cardiovascular risk assessment, Paroxysmal atrial fibrillation, Left femoral head fracture. Plan: Post orthopedic surgery. Doing well. I will recommend that L Cordell be started. Defer to surgery team. Hold oral anticoagulation in anticipation of surgery. We will oral anticoagulation post surgery once okay with orthopedic team. Continue flecainide and mexiletine for now. Thank you for your consultation. Please call me if you have any questions. Anette Calderón MD, FACP, FACC, FSCAI, FHRS, CCDS Interventional Cardiology Cardiac Electrophysiology Vascular Medicine and Endovascular Interventions Laura CALDERÓN MD Jan 07, 2019 2:27 pm
--- NOTE | 2019-01-07 14:31 | Anesthesia-General Post-Op ---
General Patient Condition Mental Status/LOC: Same as Preop Cardiovascular: Satisfactory Nausea/Vomiting: Absent Respiratory: Satisfactory Pain: Controlled Complications: Absent Post Op Complications Complications None Follow Up Care/Instructions Patient Instructions None needed. Anesthesia/Patient Condition Patient Condition Patient is doing well, no complaints, stable vital signs, no apparent adverse anesthesia problems. No complications reported per nursing. KERI MARTÍNEZ CRNA Jan 07, 2019 14:31
[2019-01-07 16:00] VITALS: BP 112/51
[2019-01-07 20:00] VITALS: BP 113/66
[2019-01-07] MEDS: APIXABAN 5 MG (ELIQUIS) TABLET PO SCH (20:51)
[2019-01-08] VITALS (7 sets, daily range): BP systolic 99–120; BP diastolic 57–65
[2019-01-08] MEDS: APIXABAN 5 MG (ELIQUIS) TABLET PO SCH ×2 (07:36→20:47)
[2019-01-08] MEDS: HYDROcodone/APAP 5 MG/325 MG (LORTAB) TAB PO PRN ×3 (07:36→22:46)
--- NOTE | 2019-01-08 09:39 | Physical Therapy Daily Note ---
PT Daily Note-Current Subjective Pt. up in chair, said he just had pain meds 30 minutes ago thus no c/o pain, agrees to ambulate. Mental Status Attachments: IV Transfers Therapy Code Descriptions/Definitions Functional [place] Measure: 0=Not Assessed/NA 4=Minimal Assistance 1=Total Assistance 5=Supervision or Setup 2=Maximal Assistance 6=Modified [place] 3=Moderate Assistance 7=Complete [place] Therapy Quality Codes: 6 Independent with activity with or without an assistive device 5 Patient requires set up or clean up by helper. Patient completes activity by themselves 4 Supervision or touching assist (CGA). [place] provide cues , steadying assist 3 The helper provides less than half the effort to complete the activity 2 The helper provides more than half the effort to complete the activity 1 Dependent. The helper does all the effort to complete an activity 7 Patient refused to complete or attempt activity 9 The patient did not perform the activity before the current illness or injury 88 Not attempted due to Medical conditions or safety concerns Transfers (B, C, W/C) (FIM): 4 Sit to/from Stand: 4 Weight Bearing Right Lower Extremity: Right Full Weight Bearing Left Lower Extremity: Left Weight Bearing/Tolerated Gait Training Gait (FIM): 2 Distance (FIM): 6=650-82 ft Distance: 80 ft Gait Level of Assist: 4 Gait Persons Needed: 1 Gait Assistive Device: FWW cues for sequence Exercises Seated Therapy Exercises: Ankle pumps, Long arc quads, Hip abd/add, Glut set Seated Reps: 20 Treatments gait, exercise Assessment Current Status: Good Progress Able to increase ambulation distance and patient had gradual improvement in WB on L LE with duration of gait. Pt. did well with seated exercises. He has increased swelling in L calf, encouraged to elevate leg in recliner periodically. Pt. up in chair post session with call light and all needs met. PT Short Term Goals Short Term Goals Transfers (B,C,W/C) (FIM): 5 PT Intermediate Goals Manager Registration Goals PT Manager Registration Goals Time Frame: Jan 14, 2019 Transfers (B,C,W/C) (FIM): 6 Gait (FIM): 6 Gait distance (FIM): 3=150 ft Distance: 150 Gait Level of Assist: 6 Gait Assistive Device: FWW Stairs (FIM): 2 # of Steps: 4 Stairs Level Of Assist: 4 PT Plan Treatment/Plan Treatment Plan: Continue Plan of Care Treatment Plan: Bed Mobility, Education, Functional Activity Nataliya, Functional Strength, Gait, Safety, Therapeutic Exercise, Transfers Treatment Duration: Jan 14, 2019 Frequency: 11 times per week Estimated Hrs Per Day: .5 hour per day Patient and/or Family Agrees t: Yes Time/GCodes Time In: 911 Time Out: 938 Total Billed Treatment Time: 27 Total Billed Treatment 1, GT 17', Ex 10' MARIZA MCCAIN PT Jan 08, 2019 09:39
--- NOTE | 2019-01-08 09:42 | Progress Note - Hospitalist ---
Subjective HPI/CC On Admission Date Seen by Provider: Jan 08, 2019 Time Seen by Provider: 09:41 Pt is a 63yoCM with a PMH of a-fib on chronic anticoagulation and HTN who presented to the ER after a fall off a ladder. He was on the second rung of a ladder while power washing his house and slipped and fell on his hip. He did not hit his head or suffer from LOC. He was unable to bear any weight on his left leg and EMS was called. Imaging revealed left femoral neck fracture. He is on chronic anticoagulation with Eliquis his last dose was yesterday morning around 9 a.m. Orthopedic surgery was consulted and would like to proceed with surgery after 48 hours off anticoagulation. He was admitted for pain control in preparation of surgery. Subjective/Events-last exam Pt reports doing well. Pain ok. Up working with PT as I entered room. Agreeable to IRU. Objective Exam Vital Signs Vital Signs Date Time Temp Pulse Resp B/P (MAP) Pulse Ox O2 Delivery O2 Flow Rate FiO2 01/08/19 07:00 76 01/08/19 04:00 98.5 18 120/61 (80) 94 Room Air 01/07/19 04:00 3.00 Capillary Refill : Less Than 3 SecondsLess Than 3 Seconds General Appearance: No Apparent Distress, WD/WN Respiratory: No Accessory Muscle Use, No Respiratory Distress Extremity: Other (felipe hose in place) Neurologic/Psychiatric: Alert, Oriented x3, Normal Mood/Affect Skin: Normal Color Results/Procedures Lab Patient resulted labs reviewed. Imaging: Reviewed Imaging Report Assessment/Plan Assessment and Plan Assess & Plan/Chief Complaint left femoral neck fracture Diagnosis/Problems Diagnosis/Problems (1) Closed left hip fracture Status: Acute Assessment & Plan: POD #2 Ortho consulted, appreciate recs PT/OT Agreeable to IRU Consult placed with hopeful DC there tomorrow Qualifiers: Encounter type: initial encounter Qualified Codes: S72.002A - Fracture of unspecified part of neck of left femur, initial encounter for closed fracture (2) Atrial fibrillation Status: Chronic Assessment & Plan: Cardiology consulted, appreciate recs Eliquis resumed Continue home meds Cardiology consulted, appreciate Qualifiers: Atrial fibrillation type: chronic Qualified Codes: I48.2 - Chronic atrial fibrillation (3) Essential (primary) hypertension Status: Chronic Assessment & Plan: Cont home meds (4) Hyperlipidemia Assessment & Plan: Cont home statin Qualifiers: Hyperlipidemia type: unspecified Qualified Codes: E78.5 - Hyperlipidemia, unspecified Clinical Quality Measures DVT/VTE Risk/Contraindication: Risk Factor Score Per Nursin RFS Level Per Nursing on Admit: 4+=Very High LUZ RODAS MD Jan 08, 2019 09:42
--- NOTE | 2019-01-08 10:00 | NUR ---
DRESSING DRY AND INTACT TO LEFT HIP, DENIES PAIN AT THIS TIME, DR KHAN INSTRUCTED NURSE NOT TO CHANGE DRESSING
--- NOTE | 2019-01-08 10:04 | Progress Note ---
Standard Progress Note Progress Notes/Assess & Plan Time Seen by a Provider: 10:03 Progress/Assessment & Plan Pt ISRA, continues to do well, pain controlled, mobilizing well OOB with PT/OT, n o cp/sob, no complaints today VSSAF Labs stable LLE: dressing c/d/i, all compartments soft/compressible, motor/sensation grossly intact, foot well perfused. S/P Closed reduction/internal fixation Left femoral neck fracture, POD #2 Orthopedically stable PT/OT daily, WBAT LLE TEDS/SCDS/ISB Current pain control regimen OK with trans to rehab from ortho standpoint Questions answered Instructions given F/U outpatient in 2 weeks Vital Signs Vitals Signs Temperature: 98.5, Source: Temporal, Heart Rate: 76, Respiratory Rate: 18, BP: 120/61, Pulse Oximetry: 94 SALVADOR KHAN DO Jan 08, 2019 10:04
[2019-01-08] MEDS: MEXILETINE 150 MG (MEXITIL) CAPSULE PO SCH ×2 (10:06→18:58)
--- NOTE | 2019-01-08 10:06 | Discharge Inst-Surgical ---
Discharge Inst-Surgical Consults/Follow Up Goal/Follow Up Appt.: Follow up outpatient with Dr. Khan at [address], [place] in 2 weeks; please call the office to confirm your appointment. Activity Activity as Tolerated: Yes You may bear weight as tolerated on your Left leg Walking Assistive Device: Walker Activity Instructions: Avoid Pulling & Pushing, Avoid Stress to Incision Driving Instructions: No Driving/Refer to Dr. Branch Discharge Diet: No Restrictions Skin/Wound Care Infection Signs and Symptoms: Increased Redness, Foul Odor of Wound, Increased Drainage, Increased Swelling, Temperature Above 101 F Wound Care Comment: You may remove your dressings in 3 days; do not remove the steri strips; you may shower after dressing removal, no baths or soaking tubs Bathing Instructions: Shower Operative Area Clean and Dry: Keep Incision Clean/Dry Steristrips: Leave Steristrips Intact SALVADOR KHAN DO Jan 08, 2019 10:06
[2019-01-08] MEDS: cloNIDine 0.1 MG (CATAPRES) TAB PO SCH ×3 (10:08→20:47)
[2019-01-08] MEDS: meTOproloL SUCCINATE 50 MG (TOPROL XL) TAB PO SCH (10:10)
[2019-01-08] MEDS: BENAZEPRIL 40 MG PO SCH (10:10)
[2019-01-08] MEDS: FLECAINIDE 100 MG (TAMBOCOR) TAB PO SCH ×2 (10:11→20:48)
[2019-01-08] MEDS: ATORVASTATIN 10 MG (LIPITOR) TABLET PO SCH (13:28)
[2019-01-08] MEDS: amLODIPine 10 MG (NORVASC) TAB PO SCH (13:28)
--- NOTE | 2019-01-08 17:57 | Cardiology Progress Note ---
Cardiology SOAP Progress Note Subjective: No cardiac complaints. Objective: I&O/Vital Signs 01/08/19 01/08/19 01/08/19 01/08/19 07:00 08:00 08:00 12:00 Temp 98.2 97.8 Pulse 76 64 69 Resp 18 18 B/P (MAP) 112/65 (81) 120/64 (82) Pulse Ox 95 95 O2 Delivery Room Air Room Air Room Air 01/08/19 01/08/19 01/08/19 13:00 14:00 15:35 Temp 97.8 97.5 Pulse 65 69 60 Resp 18 18 B/P (MAP) 120/64 (82) 99/63 (75) Pulse Ox 95 99 O2 Delivery Room Air Room Air 01/08/19 00:00 Intake Total 1380 ml Output Total 1025 ml Balance 355 ml Weight (Pounds): 249 Weight (Ounces): 5.6 Weight (Calculated Kilograms): 113.554215 Constitutional: appears stated age; No apparent distress; well-developed, well- nourished Respiratory: chest is bilaterally symmetric, lungs clear to auscultation Cardiovascular: regular rate-rhythm; No irregularly irregular, No extra beats, No parasternal heave is noted, No JVD, No edema, No bradycardia, No tachycardia, No point of maximal impulse, No cardiac thrills are palpable; S1 and S2; No gallop/S3, No gallop/S4, No diastolic murmur, No systolic murmur, No friction rub, No click, No other Gastrointestional: No tender, No soft, No round, No distended, No pulsatile mass, No organomegaly, No guarding, No rebound, No tenderness, No hernia, No mass, No audible bowel sounds, No abnormal bowel sounds, No abdominal bruits, No spleenomegaly, No other Extremities: No normal range of motion, No non-tender, No normal inspection, No pedal edema, No calf tenderness, No normal capillary refill, No pelvis stable, No calf tenderness, No inflammation, No pedal edema, No slow capillary refill, No swelling, No other, No abrasion, No clubbing, No cyanosis, No ecchymosis, No laceration, No no lower extremity edema bilateral, No significant edema; tenderness; No wound Neurologic/Psychiatric: no motor/sensory deficits, alert, normal mood/affect, oriented x 3, power is 5/5 both on sides Skin: No normal color, No warm/dry, No cyanosis, No cool, No diaphoresis, No damp, No ecchymosis, No jaundice, No mottled, No pallor, No rash, No tattoos/piercings, No ulcerations, No rash on exposed areas, No ulcerations on exposed areas, No other A/P: Assessment/Dx: Preoperative cardiovascular risk assessment, Paroxysmal atrial fibrillation, Left femoral head fracture. Plan: Post orthopedic surgery. Doing well. I will recommend that Eliquis. Defer to surgery team. PAF: Continue flecainide and mexiletine for now. OAC. Thank you for your consultation. Please call me if you have any questions. Anette Calderón MD, FACP, FACC, FSCAI, FHRS, CCDS Interventional Cardiology Cardiac Electrophysiology Vascular Medicine and Endovascular Interventions Laura CALDERÓN MD Jan 08, 2019 17:57
[2019-01-09 00:56] VITALS: BP 102/60
[2019-01-09 04:11] VITALS: BP 104/65
[2019-01-09 08:00] VITALS: BP 116/72
[2019-01-09] MEDS: HYDROcodone/APAP 5 MG/325 MG (LORTAB) TAB PO PRN (08:01)
[2019-01-09] MEDS: MEXILETINE 150 MG (MEXITIL) CAPSULE PO SCH (08:02)
[2019-01-09] MEDS: BENAZEPRIL 40 MG PO SCH (08:02)
[2019-01-09] MEDS: meTOproloL SUCCINATE 50 MG (TOPROL XL) TAB PO SCH (08:02)
[2019-01-09] MEDS: cloNIDine 0.1 MG (CATAPRES) TAB PO SCH (08:03)
[2019-01-09] MEDS: FLECAINIDE 100 MG (TAMBOCOR) TAB PO SCH (08:04)
[2019-01-09] MEDS: APIXABAN 5 MG (ELIQUIS) TABLET PO SCH (08:06)
--- NOTE | 2019-01-09 08:49 | Physical Therapy Daily Note ---
PT Daily Note-Current Subjective Patient in recliner pre tx, agrees to PT, has 4/10 pain in left hip, has already had pain meds. Appearance Patient in recliner post tx with nurse call, phone, tray, all needs met. Mental Status Patient Orientation: Normal For Age Transfers Therapy Code Descriptions/Definitions Functional [place] Measure: 0=Not Assessed/NA 4=Minimal Assistance 1=Total Assistance 5=Supervision or Setup 2=Maximal Assistance 6=Modified [place] 3=Moderate Assistance 7=Complete [place] Therapy Quality Codes: 6 Independent with activity with or without an assistive device 5 Patient requires set up or clean up by helper. Patient completes activity by themselves 4 Supervision or touching assist (CGA). [place] provide cues , steadying assist 3 The helper provides less than half the effort to complete the activity 2 The helper provides more than half the effort to complete the activity 1 Dependent. The helper does all the effort to complete an activity 7 Patient refused to complete or attempt activity 9 The patient did not perform the activity before the current illness or injury 88 Not attempted due to Medical conditions or safety concerns Transfers (B, C, W/C) (FIM): 5 Sit to/from Stand: 5 Bed to/from Chair: 5 Cues for hand placement and positioning. Weight Bearing Right Lower Extremity: Right Full Weight Bearing Left Lower Extremity: Left Weight Bearing/Tolerated Gait Training Gait (FIM): 2 Distance: 100' Gait Level of Assist: 5 Gait Persons Needed: 1 Gait Assistive Device: FWW Slow, antalgic, steady, walks with extended left knee. Exercises Seated Therapy Exercises: Ankle pumps, Long arc quads, Hip flexion Seated Reps: 15 Treatments transfers, ambulation, LE exercise Assessment Current Status: Fair Progress improved ambulation PT Short Term Goals Short Term Goals Transfers (B,C,W/C) (FIM): 5 PT Prison Goals Marine Specialist Goals PT Marine Specialist Goals Time Frame: Jan 14, 2019 Transfers (B,C,W/C) (FIM): 6 Gait (FIM): 6 Gait distance (FIM): 3=150 ft Distance: 150 Gait Level of Assist: 6 Gait Assistive Device: FWW Stairs (FIM): 2 # of Steps: 4 Stairs Level Of Assist: 4 PT Plan Problem List Problem List: Activity Tolerance, Functional Strength, Safety, Balance, Gait, Transfer, Bed Mobility, ROM Treatment/Plan Treatment Plan: Continue Plan of Care Treatment Plan: Bed Mobility, Education, Functional Activity Nataliya, Functional Strength, Gait, Safety, Therapeutic Exercise, Transfers Treatment Duration: Jan 14, 2019 Frequency: 11 times per week Estimated Hrs Per Day: .5 hour per day Patient and/or Family Agrees t: Yes Safety Risks/Education Patient Education: Gait Training, Transfer Techniques, Correct Positioning, Safety Issues Teaching Recipient: Patient Teaching Methods: Demonstration, Discussion Response to Teaching: Reinforcement Needed Time/GCodes Time In: 0826 Time Out: 0841 Total Billed Treatment Time: 15 Total Billed Treatment 1 visit FA KARISSA GONZALEZ PT Jan 09, 2019 08:49
--- NOTE | 2019-01-09 09:13 | NUR ---
IRF Evaluation Order received to evaluate patient for the ARU. Chart review complete and findings discussed with Dr. Ace - patient accepted. Anticipate admission, 01/09/19. CM/SS notified. Thank you for this referral.
[2019-01-09 10:08] LABS: BASOPHILS % (AUTO) 0 % (0-10); EOSINOPHILS # (AUTO) 0.3 10^3/uL (0.0-0.3); EOSINOPHILS % (AUTO) 4 % (0-10); HEMATOCRIT 39 % (40-54); HEMOGLOBIN 13.1 G/DL (13.3-17.7); LYMPHOCYTES # (AUTO) 0.8 X 10^3 (1.0-4.0); LYMPHOCYTES % (AUTO) 13 % (12-44); MEAN CORPUSCULAR HEMOGLOBIN 31 PG (25-34); MEAN CORPUSCULAR HGB CONC 34 G/DL (32-36); MEAN CORPUSCULAR VOLUME 91 FL (80-99); MEAN PLATELET VOLUME 8.8 FL (7.4-10.4); MONOCYTES # (AUTO) 0.8 X 10^3 (0.0-1.0); MONOCYTES % (AUTO) 11 % (0-12); NEUTROPHILS # (AUTO) 4.8 X 10^3 (1.8-7.8); NEUTROPHILS % (AUTO) 72 % (42-75); PLATELET COUNT 157 10^3/uL (130-400); RED CELL DISTRIBUTION WIDTH 13.5 % (10.0-14.5); WHITE BLOOD COUNT 6.7 10^3/uL (4.3-11.0)
[2019-01-09 10:36] LABS: ALANINE AMINOTRANSFERASE 58 U/L (0-55); ALBUMIN 3.7 GM/DL (3.2-4.5); ALKALINE PHOSPHATASE 74 U/L (40-136); BUN/CREATININE RATIO 25; CALCIUM 8.9 MG/DL (8.5-10.1); CARBON DIOXIDE 22 MMOL/L (21-32); CHLORIDE 105 MMOL/L (98-107); CREATININE SERUM 0.89 MG/DL (0.60-1.30); GFR ESTIMATED > 60; GLUCOSE 143 MG/DL (70-105); SODIUM 137 MMOL/L (135-145); TOTAL PROTEIN 5.9 GM/DL (6.4-8.2)
--- NOTE | 2019-01-09 11:30 | NUR ---
TO [facility]. ROOM 225 PER AMB/W/C AND P.T. REPORT GIVEN TO AMANUEL GODFREY
--- NOTE | 2019-01-09 12:51 | Cardiology Progress Note ---
Cardiology SOAP Progress Note Subjective: No cardiac complaints. Objective: I&O/Vital Signs 01/09/19 01/09/19 01/09/19 01/09/19 00:56 01:00 04:11 07:00 Temp 99.8 99.4 Pulse 57 60 65 62 Resp 18 18 B/P (MAP) 102/60 (74) 104/65 (78) Pulse Ox 96 98 O2 Delivery Room Air Room Air 01/09/19 01/09/19 01/09/19 08:00 08:00 12:33 Temp 98.4 Pulse 70 60 Resp 18 B/P (MAP) 116/72 (87) Pulse Ox 98 O2 Delivery Room Air Room Air 01/09/19 00:00 Intake Total 1270 ml Output Total 400 ml Balance 870 ml Weight (Pounds): 249 Weight (Ounces): 5.6 Weight (Calculated Kilograms): 113.868369 Constitutional: appears stated age; No apparent distress; well-developed, well- nourished Respiratory: chest is bilaterally symmetric, lungs clear to auscultation Cardiovascular: regular rate-rhythm; No irregularly irregular, No extra beats, No parasternal heave is noted, No JVD, No edema, No bradycardia, No tachycardia, No point of maximal impulse, No cardiac thrills are palpable; S1 and S2; No gallop/S3, No gallop/S4, No diastolic murmur, No systolic murmur, No friction rub, No click, No other Gastrointestional: No tender, No soft, No round, No distended, No pulsatile mass, No organomegaly, No guarding, No rebound, No tenderness, No hernia, No mass, No audible bowel sounds, No abnormal bowel sounds, No abdominal bruits, No spleenomegaly, No other Extremities: No normal range of motion, No non-tender, No normal inspection, No pedal edema, No calf tenderness, No normal capillary refill, No pelvis stable, No calf tenderness, No inflammation, No pedal edema, No slow capillary refill, No swelling, No other, No abrasion, No clubbing, No cyanosis, No ecchymosis, No laceration, No no lower extremity edema bilateral, No significant edema; tenderness; No wound Neurologic/Psychiatric: no motor/sensory deficits, alert, normal mood/affect, oriented x 3, power is 5/5 both on sides Skin: No normal color, No warm/dry, No cyanosis, No cool, No diaphoresis, No damp, No ecchymosis, No jaundice, No mottled, No pallor, No rash, No tattoos/piercings, No ulcerations, No rash on exposed areas, No ulcerations on exposed areas, No other Results/Procedures: Labs Laboratory Tests 01/09/19 09:40: White Blood Count 6.7, Red Blood Count 4.27L, Hemoglobin 13.1L, Hematocrit 39L, Mean Corpuscular Volume 91, Mean Corpuscular Hemoglobin 31, Mean Corpuscular Hemoglobin Concent 34, Red Cell Distribution Width 13.5, Platelet Count 157, Mean Platelet Volume 8.8, Neutrophils (%) (Auto) 72, Lymphocytes (%) (Auto) 13, Monocytes (%) (Auto) 11, Eosinophils (%) (Auto) 4, Basophils (%) (Auto) 0, Neutrophils # (Auto) 4.8, Lymphocytes # (Auto) 0.8L, Monocytes # (Auto) 0.8, Eosinophils # (Auto) 0.3, Basophils # (Auto) 0.0, Sodium Level 137, Potassium Level 4.0, Chloride Level 105, Carbon Dioxide Level 22, Anion Gap 10, Blood Urea Nitrogen 22H, Creatinine 0.89, Estimat Glomerular Filtration Rate > 60, BUN/Creatinine Ratio 25, Glucose Level 143H, Calcium Level 8.9, Corrected Calcium 9.1, Total Bilirubin 1.0, Aspartate Amino Transf (AST/SGOT) 35H, Alanine Aminotransferase (ALT/SGPT) 58H, Alkaline Phosphatase 74, Total Protein 5.9L, Albumin 3.7 A/P: Assessment/Dx: Preoperative cardiovascular risk assessment, Paroxysmal atrial fibrillation, Left femoral head fracture. Plan: Post orthopedic surgery. Doing well. I will recommend that Eliquis. Defer to surgery team. PAF: Continue flecainide and mexiletine for now. OAC. Thank you for your consultation. Please call me if you have any questions. Anette Calderón MD, FACP, FACC, FSCAI, FHRS, CCDS Interventional Cardiology Cardiac Electrophysiology Vascular Medicine and Endovascular Interventions Laura CALDERÓN MD Jan 09, 2019 12:51 pm
--- NOTE | 2019-01-10 01:37 | OPERATIVE REPORT ---
DATE OF SERVICE: 01/06/2019 PREPROCEDURE DIAGNOSIS: Closed, minimally displaced transcervical fracture of left femoral neck. POSTPROCEDURE DIAGNOSIS: Closed, minimally displaced transcervical fracture of left femoral neck. PROCEDURE: Closed reduction with internal fixation of closed, minimally displaced transcervical fracture of left femoral neck. IMPLANTS: 3 Synthes 7.3 mm cannulated screws with 32 mm threads. ATTENDING SURGEON: Dr. Salvador Khan. ANESTHESIA: General endotracheal. ESTIMATED BLOOD LOSS: 100 mL. COMPLICATIONS: None. SPECIMENS: None. DRAINS: None. BRIEF HISTORY AND INDICATIONS: The patient is a pleasant 63-year-old male who on Wednesday01/04/2019 sustained a fall from the second rung of his ladder landing directly on his left hip. He subsequently had severe left hip pain and an inability to bear weight or ambulate on his left lower extremity. As such, he presented to the [facility] Emergency Department for evaluation and treatment. Upon presentation, plain radiographs of the patient's pelvis and left hip and femur demonstrated a minimally displaced transcervical fracture of the left femoral neck. Orthopedic service was consulted for definitive management of his injury. The patient denied head trauma, loss of consciousness or seizure activity associated with his fall. He denied additional musculoskeletal injuries. On exam of the patient's left lower extremity, had grossly intact motor and sensory function, all compartments were soft and compressible, the skin was intact, there were no open wounds, the left foot was well perfused; the patient has significant discomfort in the left groin with any attempted range of motion of the left hip. I discussed the patient's condition with him in detail including the natural history, prognosis and treatment options. I explained that given the nature of the injury, which includes instability and risk of negative sequela that surgical treatment was recommended. I discussed the surgical treatment options with him in detail including primary osteosynthesis versus arthroplasty. I explained that given that the fracture was minimally displaced and his lack of primary OA that osteosynthesis was indicated. I explained the treatment plan with the patient in detail including the risks, benefits, potential complications, expected outcomes, indications and alternatives. Those risks were discussed included, but were not limited to significant bleeding, infection, damage to surrounding neurovascular and soft tissue structures, mechanical irritation and/or failure of the hardware, malunion, nonunion, avascular necrosis, potential serious reactions to anesthesia, and potential need for secondary surgical procedures. The patient gave informed written consent to proceed as planned after all of his questions were answered to his satisfaction. I did explain to the patient that given the fact that he was on Eliquis that we would need to hold the Eliquis for a minimum of 48 hours prior to proceeding with surgical treatment so as to minimize the potential associated complications with excessive bleeding. PROCEDURE NOTE: After correctly identifying the patient in the preoperative holding area and after his operative site was appropriately marked, he was transferred to the operating room. Once in the operating room, he had successful induction of general endotracheal anesthesia, the knee was transferred to radiolucent fracture table and placed in the supine position. All bony prominences were meticulously padded. The bilateral lower extremities were secured to the fracture table in the scissor position. I then performed a closed reduction maneuver on the fracture table of the left lower extremity with use of traction and internal rotation. A C-arm fluoroscopy was then used to verify that the reduction of the fracture and alignment of the hip joint was acceptable prior to proceeding with the procedure. The left hip was then prepped and draped in the routine sterile fashion. Prior to beginning the case, we completed an operating room timeout with all parties involved in the case and agreement and verified appropriate infusion of prophylactic antibiotics. After infusion of local anesthetic, a 10 blade scalpel was used to make an incision on the lateral aspect of the left hip beginning just below the greater trochanter and extending 6 cm distally, incising through the skin and subcutaneous tissue. Bovie cautery was then used to dissect through the fascia of the IT band and the vastus lateralis. The muscle belly of the vastus lateralis was released from its insertion on the posterolateral surface of the femur with Bovie cautery and Engle elevator so as to expose the lateral aspect of the femur and periosteum. Then, using the standard 2.8 mm threaded tip guide pins from the Synthes cannulated screw set. Three pins were placed in a biplanar fashion into the femoral head and neck under lateral fluoroscopic guidance. Once the pins were in place and the fracture was verified to be maintained in acceptable position, I then measured for the length of the screws to be used. Once the measurements were obtained, the 5 mm cannulated reamer was used over the guidepin to prepare the path for the cannulated screws. The middle screw was placed first so as to achieve good compression across the fracture site. I then proceeded to place the superior and inferior most screws in like fashion. We achieved very good purchase and good compression across the fracture site with the screws. Final AP and lateral C-arm images confirmed that all of the screws were in appropriate position within the femoral head and the fracture maintained acceptable position. The guide pins were then removed. The wound was then irrigated with copious amounts of sterile saline and then standard closure was completed using 0 Vicryl for the deep fascia, 2-0 Vicryl for the subcutaneous tissue, and a running 4-0 Monocryl subcuticular stitch and Steri-Strips for the skin. The patient then had a sterile dressing applied followed by being awakened and extubated in the operating room without incident. He was then transferred to the PACU in stable condition. He tolerated the procedure quite well without complications. All counts were correct at the end of the case. Job ID: [id number] DocumentID: [id number] Dictated Date: 01/09/2019 14:58:07 Director Of [employer]ance [employer] Date: 01/10/2019 01:36:30 Dictated By: SALVADOR KHAN
[2019-01-13] MEDS ORDERED: SENN-20 PO (12:25)
[2019-01-13] MEDS ORDERED: ACHD5005 PO (12:25)
== END 2019-01-09 11:33 | DRG 482 ==
LOC: EDUNIT# 18:34 → ER 18:35 → 4TH 19:55
PROVIDERS: ADMIT Internal Medicine; ATTEND Family Medicine
PROC: 0QS734Z Reposition Left Upper Femur with Internal Fixation Device, Percutaneous Approach (ICD-10-PCS; principal; 2019-01-06 14:28)
DX: S72.032A Displaced midcervical fracture of left femur, initial encounter for closed fracture (principal); I48.0 Paroxysmal atrial fibrillation; I10 Essential (primary) hypertension; E78.00 Pure hypercholesterolemia, unspecified; E78.5 Hyperlipidemia, unspecified; M19.91 Primary osteoarthritis, unspecified site; W11.XXXA Fall on and from ladder, initial encounter; Z86.010 Personal history of colon polyps; Z79.01 Long term (current) use of anticoagulants; Z87.820 Personal history of traumatic brain injury; Z88.2 Allergy status to sulfonamides; Z88.5 Allergy status to narcotic agent
CPT/HCPCS: 36415; 70450; 71045; 72125; 80053; 85014; 85018; 85025; 85610; 85730; 93005; 93041; 94664; 96361; 96374; 96376

== ENCOUNTER 2019-01-09 10:49 | Inpatient (IN) | payer MEDICARE, OTHER ==
[~2019-01-09] VITALS: Ht 185.4 cm; Wt 118.6 kg
[~2019-01-09 10:49] MED LIST changes: +AMLO10TA7 PO; +APIX5TAB PO; +[UNRECOGNIZED DRUG - CODE] PO
[2019-01-09 11:50] VITALS: BP 129/68
--- NOTE | 2019-01-09 11:50 | NUR ---
CAITLIN COX admitted to room 225-1, with an admitting diagnosis of LEFT HIP FRACTURE, on 01/09/[address] [place] [address], [facility] via , accompanied by STAFF. CAITLIN COX introduced to surroundings, call light, bed controls, phone, TV, temperature control, lights, meal times, smoking policy, visitor policy, side rail policy, bathrooms and showers. Patient Rights given to patient in the handbook.CAITLIN COX verbalizes understanding that [facility] is not responsible for the loss or damage to any personal effects or valuables that are kept in the patients posession during their hospitalization. The following Patient Care Plans were discussed with the PT: Discharge Planning AND FRACTURE. CAITLIN COX verbalizes understanding of Interdisciplinary Patient Education. Patient received Patient Rights Booklet, which includes Privacy Act Statement and Data Collection Information Summary. PLEASANT AND COOPERATIVE. DENIES PAIN PRESENTLY. OKAY'D WITH DR. SALAS TO DC TELEMETRY. SALINE LOCK DC'D AT PATIENT REQUEST. STATES DOES NOT NEED IV ZOFRAN AND FENTANYL.
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
--- NOTE | 2019-01-09 12:51 | NUR ---
REVIEWED MED REC IT WAS REPORTED UPON ADMISSION TO 4TH FLOOR. NO CHANGES WERE MADE WHEN THE PATIENT DISCHARGED TO REHAB.
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
[2019-01-09] MEDS ORDERED: LOPERAMIDE 2 MG (IMODIUM) TABLET PO PRN (13:30)
[2019-01-09] MEDS ORDERED: ACETAMINOPHEN 500 MG TAB (TYLENOL) PO PRN (13:30)
[2019-01-09] MEDS: POLYETHYLENE GLYCOL 17 GM (MIRALAX) PACK PO SCH ×2 (13:30→19:46)
[2019-01-09] MEDS ORDERED: fentaNYL INJECTION 100 MCG/2 ML AMP IV PRN (13:30)
[2019-01-09] MEDS ORDERED: ALPRAZolam 0.25 MG (XANAX) TAB PO PRN (13:30)
[2019-01-09] MEDS: DOCUSATE SODIUM 100 MG (COLACE) CAP PO SCH ×2 (13:30→19:46)
[2019-01-09] MEDS ORDERED: PATIENT MAY USE OWN MEDS, ALL MC SCH (13:30)
[2019-01-09] MEDS ORDERED: diphenhydrAMINE 25 MG TAB (BENADRYL) PO PRN (13:30)
[2019-01-09] MEDS ORDERED: CALCIUM CARBONATE 500 MG (TUMS) TAB.CHEW PO PRN (13:30)
[2019-01-09] MEDS ORDERED: BISACODYL 10 MG SUPP (DULCOLAX) PR PRN (13:30)
[2019-01-09] MEDS: SENNA W/DOCUSATE (SENOKOT S) TABLET PO SCH ×2 (13:30→19:46)
[2019-01-09] MEDS ORDERED: ONDANSETRON 4 MG/2 ML (SDV) Z0FRAN IVP PRN (13:30)
[2019-01-09] MEDS ORDERED: MELATONIN 3 MG TABLET PO PRN (13:30)
[2019-01-09] MEDS ORDERED: LACTATED RINGERS 1,000 ML IV PRN (13:30)
--- NOTE | 2019-01-09 14:38 | Physical Therapy Daily Note ---
PT Daily Note-Current Subjective Pt. agrees to Rx. States he feels he is making progress already. No c/o pain until exercise which was then rated at 4/10 left hip Pain Numeric Pain Scale: 4 Location: Left Location Body Site: Hip Pain Description: Ache Mental Status Patient Orientation: Normal For Age Attachments: Other-See Comments (telemetry) Transfers Therapy Code Descriptions/Definitions Functional [place] Measure: 0=Not Assessed/NA 4=Minimal Assistance 1=Total Assistance 5=Supervision or Setup 2=Maximal Assistance 6=Modified [place] 3=Moderate Assistance 7=Complete [place] Therapy Quality Codes: 6 Independent with activity with or without an assistive device 5 Patient requires set up or clean up by helper. Patient completes activity by themselves 4 Supervision or touching assist (CGA). [place] provide cues , steadying assist 3 The helper provides less than half the effort to complete the activity 2 The helper provides more than half the effort to complete the activity 1 Dependent. The helper does all the effort to complete an activity 7 Patient refused to complete or attempt activity 9 The patient did not perform the activity before the current illness or injury 88 Not attempted due to Medical conditions or safety concerns Transfers (B, C, W/C) (FIM): 5 Scootin Rollin Supine to/from Sit: 6 Sit to/from Stand: 6 Bed to/from Chair: 5 multiple sup to sit as pt. wants to be up ad carmen to sit EOB for urination Gait Training Does the Patient Walk?: Yes Gait (FIM): 5 Distance (FIM): 3=150 ft (150,10) Gait Level of Assist: 5 Gait Persons Needed: 1 Gait Assistive Device: FWW instructed to push FWW on floor vs lifting for each step Wheelchair Training Does the Pt Use a Wheelchair?: No Exercises Supine Ex: Ankle pumps, Pelvic tilt, Quad Set, Rolling, Glut sets, Heel Slides, Short Arc Quads, Scooting, Straight leg raise (x5 left w assist), Hip abd/add (assist Left) Supine Reps: 15 Seated Therapy Exercises: Sit to stand, Long arc quads Seated Reps: 10 Treatments instruction in using bed railing at head of be to push self up in bed along with RLE etc Assessment Current Status: Good Progress gives full effort PT Plan Problem List Problem List: Activity Tolerance, Functional Strength, Safety, Balance, Gait, Transfer, Bed Mobility Treatment/Plan Treatment Plan: Continue Plan of Care Treatment Plan: Bed Mobility, Education, Functional Activity Nataliya, Functional Strength, Group Therapy, Gait, Safety, Therapeutic Exercise, Transfers Treatment Duration: Jan 20, 2019 Frequency: At least 5 of 7 days/Wk (IRF) Estimated Hrs Per Day: 1.5 hours per day Patient and/or Family Agrees t: Yes Safety Risks/Education Patient Education: Gait Training, Transfer Techniques, Correct Positioning, Disease Process, Safety Issues Teaching Recipient: Patient Teaching Methods: Demonstration, Discussion Response to Teaching: Verbalize Understanding, Return Demonstration, Reinforcement Needed Time/GCodes Time In: 1405 Time Out: 1435 Total Billed Treatment Time: 30 Total Billed Treatment 1,FA16m,EX14m G Codes Necessary: BRADLEY Lubin BARTENDER HELPER Jan 09, 2019 14:38
[2019-01-09] MEDS: ATORVASTATIN 10 MG (LIPITOR) TABLET PO SCH (14:41)
--- NOTE | 2019-01-09 14:59 | Physical Therapy Evaluation ---
PT Evaluation-General Medical Diagnosis Admission Date Jan 09, 2019 at 12:21 Medical Diagnosis: L hip fx, ORIF Onset Date: Jan 04, 2019 Therapy Diagnosis Therapy Diagnosis: abnormal gait Height/Weight Height (Feet): 6 Height (Inches): 1.00 Weight (Pounds): 261 Weight (Ounces): 8.0 Precautions Precautions/Isolations: Standard Precautions Weight Bear Status Right Lower Extremity: Right Full Weight Bearing Left Lower Extremity: Left Weight Bearing/Tolerated Referral Physician: Malka Reason for Referral: Evaluation/Treatment Medical History Pertinent Medical History: Atrial Fib, Arthritis, HTN, TBI Current History Pt had a fall from the 2nd rung of a ladder and sustained a left hip fracture. Post ORIF and noted to be WBAT. Reviewed History: Yes Social History Home: Single Level Current Living Status: Spouse Entry Into Home: Stairs With Railing PT Steps Into Home: 4 (4 front entrance, 3 garage) Other Obstacles: Bonus room upstairs Prior/Core FIM Prior Level of Function Therapy Code Descriptions/Definitions Functional [place] Measure: 0=Not Assessed/NA 4=Minimal Assistance 1=Total Assistance 5=Supervision or Setup 2=Maximal Assistance 6=Modified [place] 3=Moderate Assistance 7=Complete [place] Therapy Quality Codes: 6 Independent with activity with or without an assistive device 5 Patient requires set up or clean up by helper. Patient completes activity by themselves 4 Supervision or touching assist (CGA). Carney provide cues , steadying assist 3 The helper provides less than half the effort to complete the activity 2 The helper provides more than half the effort to complete the activity 1 Dependent. The helper does all the effort to complete an activity 7 Patient refused to complete or attempt activity 9 The patient did not perform the activity before the current illness or i njury 88 Not attempted due to Medical conditions or safety concerns Functional Abilities and Goals: Independent: Patient completed the activities by him/herself, with or without an assistive device, with no assistance from a helper. Needed Some Help: Patient needed partial assistance from another person to complete activities. Dependent: A helper completed the activities for the patient. Unknown: Not Applicable: Bed Mobility: 7 Transfers (B,C,W/C) (FIM): 7 Gait: 7 Stairs: 7 Indoor Mobility (Ambulation): Independent Stairs: Independent Independent and very active. Drives. Pt was power washing his house when he fell. PT Evaluation-Current Subjective Pt agreeable. Denies needing pain meds at this time Objective Patient Orientation: Person, Place, Time, Situation Problem Solving: Good ROM/Strength ROM Lower Extremities WNL Strenght Lower Extremities Right LE WNL ; left LE grossly 4-/5 Integumentary/Posture Integumentary intact Bowel Incontinence: No Bladder Incontinence: No Posture normal and symmetrical Neuromuscular (Tone, Coordination, Reflexes) intact and without deficit Sensory Vision: Functional Hearing: Functional Hand Dominance: Right Sensation Right Lower Extremit: Intact Sensation Left Lower Extremity: Intact Transfers Therapy Code Descriptions/Definitions Functional [place] Measure: 0=Not Assessed/NA 4=Minimal Assistance 1=Total Assistance 5=Supervision or Setup 2=Maximal Assistance 6=Modified [place] 3=Moderate Assistance 7=Complete [place] Therapy Quality Codes: 6 Independent with activity with or without an assistive device 5 Patient requires set up or clean up by helper. Patient completes activity by themselves 4 Supervision or touching assist (CGA). Carney provide cues , steadying assist 3 The helper provides less than half the effort to complete the activity 2 The helper provides more than half the effort to complete the activity 1 Dependent. The helper does all the effort to complete an activity 7 Patient refused to complete or attempt activity 9 The patient did not perform the activity before the current illness or injury 88 Not attempted due to Medical conditions or safety concerns Transfers (B, C, W/C) (FIM): 4 Scootin Roll Left to Right (QC): 4 Supine to/from Sit: 4 (light assist with left LE) Sit to/from Stand: 4 (CGA and skilled cues for sequencing and safety for up and down.) Sit to Lying (QC): 4 Lying to Sitting/Side of Bed(Q: 4 Sit to Stand (QC): 4 Chair/Yla-pk-Nbipe Xfer(QC): 4 Car Transfer (QC): 4 Intermittent cues for safety and sequencing. Gait Does the Patient Walk?: Yes Mode of Locomotion: Walk Anticipated Mode of Locomotion: Walk Gait (FIM): 4 Distance (FIM): 3=150 ft Walk 10 feet (QC): 4 Walk 50 ft with 2 Turns(QC): 4 Walk 150 ft (QC): 4 Walking 10ft/uneven surface-QC: 4 Gait Assistive Device: FWW Comments/Gait Description Step to gait with slight antalgia noted with WB left. Wheelchair Training Does the Pt Use a Wheelchair?: No Stairs Stairs (FIM): 1 #of Steps: 1 Level of Assist: 4 (skilled cues for sequencing and CGA.) 1 Step (curb) (QC): 4 4 Steps (QC): 88 Assistive Device: Walker 12 Steps (QC): 88 Balance Sitting Static: Normal Sitting Dynamic: Normal Standing Static: Fair Standing Dynamic: Fair Picking up an Object (QC): 88 Treatment /Functional gait and transfer training with education on safe technique. Assessment/Needs Post fall from ladder with a left hip fracture that was repaired with an ORIF. He has functional strength and balance deficits that impaire functional transfers and gait. He was indep and active at his PLOF. He will benefit from skilled PT to address these deficits to allow him to return to a mod indep level. Rehab Potential: Good PT Short Term Goals Short Term Goals Time Frame: Jan 13, 2019 Transfers (B,C,W/C) (FIM): 5 Gait (FIM): 5 PT Patternmaker All Around Goals Patternmaker All Around Goals PT Prison Goals Time Frame: Jan 20, 2019 Transfers (B,C,W/C) (FIM): 7 Sit to Lying (QC): 6 Lying-Sitting on Side/Bed(QC): 6 Sit to Stand (QC): 6 Roll Left to Right (QC): 6 Chair/Lqe-hb-Yrzli Xfer(QC): 6 Car Transfer (QC): 6 Does the Patient Walk: Yes Gait (FIM): 6 Gait distance (FIM): 3=150 ft Walk 10 feet (QC): 6 Walk 10ft-Uneven Surface(QC): 6 Walk 50ft with 2 Turns (QC): 6 Walk 150 ft (QC): 6 Gait Assistive Device: FWW Does the Pt use WC or Scooter?: No Stairs (FIM): 6 # of Steps: 12 1 Step (curb) (QC): 6 4 Steps (QC): 6 12 Steps (QC): 6 Picking up an Object (QC): 5 PT Plan Problem List Problem List: Activity Tolerance, Functional Strength, Safety, Balance, Gait, Transfer, Bed Mobility Treatment/Plan Treatment Plan: Continue Plan of Care Treatment Plan: Bed Mobility, Education, Functional Activity Nataliya, Functional Strength, Group Therapy, Gait, Safety, Therapeutic Exercise, Transfers Treatment Duration: Jan 20, 2019 Frequency: At least 5 of 7 days/Wk (IRF) Estimated Hrs Per Day: 1.5 hours per day Patient and/or Family Agrees t: Yes Safety Risks/Education Patient Education: Transfer Techniques, Safety Issues Teaching Recipient: Patient Teaching Methods: Demonstration, Discussion Response to Teaching: Return Demonstration, Reinforcement Needed Discharge Recommendations Therapy D/C Recommendations: Physical Therapy Home Care Time/GCodes Time In: 1120 Time Out: 1150 Total Billed Treatment Time: 30 Total Billed Treatment visit EVM 15 FA 15 MELBA GRUBER PT Jan 09, 2019 14:59
[2019-01-09] MEDS: amLODIPine 10 MG (NORVASC) TAB PO SCH (15:06)
--- NOTE | 2019-01-09 15:06 | Therapy Group Daily Note ---
Therapy Daily Group Note Patient Education Topic Incontinence, Other List Below (dehydration) Exercises Other (kegels) Session Ratio (pt:therapist): 4:1 Goal of Session: Education on ARU Expectations, Other (list) (understanding dehydration and incont) Goal Met for this Session: Yes Pt Benefit of Group: Contributions to Others Other/Notes Pt. participated in group PT OT session this date. Pt. came and went with FWW and SBA. Pt. was social introducing himself and was very social. Pts. were educated in the causes signs and symptoms of incontinence and dehydration as well as prevention. Pts. were introduced to incont briefs and their role in above topics. Pts were instructed in Kegel exercises . Pt. to room after cookie Tsang at hand. Start Time: 13:00 Stop Time: 14:00 Total Billed Treatment Time: 60 Total Billed Treatment 1,GRP BRADLEY D[employer]ER [employer] MEETING [employer]ANNER Jan 09, 2019 15:06
--- NOTE | 2019-01-09 16:31 | Occupational Ther Daily Note ---
OT Current Status-Daily Note Subjective No pain reported. Appearance Pt. up in chair. States that he will shower tomorrow. Agrees to work with OT. Mental Status/Objective Patient Orientation: Person, Place, Time, Situation Therapy Code Descriptions/Definitions Functional [place] Measure: 0=Not Assessed/NA 4=Minimal Assistance 1=Total Assistance 5=Supervision or Setup 2=Maximal Assistance 6=Modified [place] 3=Moderate Assistance 7=Complete [place] ADL-Treatment Therapy Code Descriptions/Definitions Functional [place] Measure: 0=Not Assessed/NA 4=Minimal Assistance 1=Total Assistance 5=Supervision or Setup 2=Maximal Assistance 6=Modified [place] 3=Moderate Assistance 7=Complete [place] Therapy Quality Codes: 6 Independent with activity with or without an assistive device 5 Patient requires set up or clean up by helper. Patient completes activity by themselves 4 Supervision or touching assist (CGA). [place] provide cues , steadying assist 3 The helper provides less than half the effort to complete the activity 2 The helper provides more than half the effort to complete the activity 1 Dependent. The helper does all the effort to complete an activity 7 Patient refused to complete or attempt activity 9 The patient did not perform the activity before the current illness or injury 88 Not attempted due to Medical conditions or safety concerns Lower Body Dressing (FIM): 3 Lower Body Dressing (QC): 3 On/Off Footwear (QC): 3 Transfers (B, C, W/C) (FIM): 5 Pt. stands from chair with SBA. With increased time needed, pt. able to ambulate with walker to therapy gym. Requires SBA. Completed 15 minutes on arm bike at mod resistance for overall increased strength and endurance. Rest break required after. During this time pt. participated in history trivia and participated well. Ambulated back to room with walker and SBA. Attempted to practice socks without AE. Able to doff slipper socks with increased effort and time, but unable to don them. All needs are met up in chair. Education OT Patient Education: Correct positioning, Modified ADL techniques, Progress toward Goal/Update tx plan, Purpose of tx/functional activities, Reviewed precautions, Rehab process, Transfer techniques Teaching Recipient: Patient Teaching Methods: Demonstration, Discussion Response to Teaching: Verbalize Understanding, Return Demonstration OT Short Term Goals Short Term Goals Time Frame: Jan 16, 2019 Eating(FIM): 7 Grooming(FIM): 6 Bathing(FIM): 5 Upper Body Dressing(FIM): 5 Lower Body Dressing(FIM): 4 Toileting(FIM): 5 Transfers (B,C,W/C) (FIM): 5 Toilet/Commode Transfer(FIM): 5 Shower Transfer(FIM): 5 Additional Short Term Goals: 1-Demonstrate ADL Tasks, 2-Verbalize Understanding, 3-ImproveStrength/Nataliya 1=Demonstrate adherence to instructed precautions during ADL tasks. 2=Patient will verbalize/demonstrate understanding of assistive devices/modifications for ADL. 3=Patient will improve strength/tolerance for activity to enable patient to perform ADL's. OT Director Of [employer] Work Goals Care Home Goals Time Frame: Jan 20, 2019 Eating (FIM): 7 Eating (QC): 6 Groomin Oral Hygiene (QC): 6 Bathing(FIM): 6 Shower/Bathe Self (QC): 6 Upper Body Dressing(FIM): 6 Upper Body Dressing (QC): 6 Lower Body Dressing(FIM): 6 Lower Body Dressing (QC): 6 On/Off Footwear (QC): 6 Toileting(FIM): 6 Toileting Hygiene (QC): 6 Toilet/Commode Transfer(FIM): 6 Toilet/Commode Transfer (QC): 6 Tub Transfer(FIM): 6 (or shower) Shower Transfer(FIM): 6 (or tub) Additional Goals: 1-Demonstrate ADL Tasks, 2-Verbalize Understanding, 3- ImproveStrength/Nataliya 1=Demonstrate adherence to instructed precautions during ADL tasks. 2=Patient will verbalize/demonstrate understanding of assistive devices/modifications for ADL. 3=Patient will improve strength/tolerance for activity to enable patient to perform ADL's. OT Education/Plan Problem List/Assessment Assessment: Decreased Activ Tolerance, Impaired I ADL's, Impaired Self-Care Skills Discharge Recommendations Plan/Recommendations: Continue POC Therapy D/C Recommendations: Home w/ Family Support, Occupational Therapy Home Care Equpiment Recommendations-D/C: Hip Kit Treatment Plan/Plan of Care Treatment,Training & Education: Yes Patient would benefit from OT for education, treatment and training to promote independence in ADL's, mobility, safety and/or upper extremity function for ADL's. Plan of Care: ADL Retraining, Functional Mobility, Group Exercise/Act as Ind (education, exercise, activity tolerance, funct mobility, funct activ, socialization), UE Funct Exercise/Act, UE Neuromus Re-Ed/Coord, W/C Management Training Treatment Duration: Jan 20, 2019 Frequency: At least 5 of 7 days/Wk (IRF) Estimated Hrs Per Day: 1.5 hours per day Agreement: Yes Rehab Potential: Good Time/GCodes Start Time: 15:30 Stop Time: 16:30 Total Time Billed (hr/min): 60 Billed Treatment Time 1, FA x 30minutes, Ex x 30minutes SELAM CLARKE OT Jan 09, 2019 16:31
[2019-01-09 17:07] VITALS: BP 114/67
[2019-01-09] MEDS: MEXILETINE 150 MG (MEXITIL) CAPSULE PO SCH (18:50)
--- NOTE | 2019-01-09 19:00 | NUR ---
HAS DENIES PAIN TODAY. REPORTS A LOOSE STOOL.
[2019-01-09] MEDS: APIXABAN 5 MG (ELIQUIS) TABLET PO SCH (20:51)
[2019-01-09] MEDS: cloNIDine 0.1 MG (CATAPRES) TAB PO SCH (20:52)
[2019-01-09] MEDS: FLECAINIDE 100 MG (TAMBOCOR) TAB PO SCH (20:53)
[2019-01-09] MEDS ORDERED: MEXILETINE 150 MG (MEXITIL) CAPSULE PO SCH (21:00)
[2019-01-09] MEDS: HYDROcodone/APAP 5 MG/325 MG (LORTAB) TAB PO PRN (23:25)
[2019-01-10 06:09] VITALS: BP 131/68
[2019-01-10] MEDS: MEXILETINE 150 MG (MEXITIL) CAPSULE PO SCH ×2 (06:31→17:20)
--- NOTE | 2019-01-10 08:00 | NUR ---
STATES VERY LITTLE PAIN SITTING BUT LEFT HIP PAIN UP TO A "6" WITH ACTIVITY. MEDICATED WITH LORTAB IN PREP FOR THERAPY THIS AM. STATES GOOD PAIN RELIEF WITH LORTAB. IS ANXIOUS TO START THERAPY AND APPEARS A VERY GOOD CANDIDATE FOR THIS UNIT.
[2019-01-10] MEDS: APIXABAN 5 MG (ELIQUIS) TABLET PO SCH ×2 (08:08→21:01)
[2019-01-10] MEDS: HYDROcodone/APAP 5 MG/325 MG (LORTAB) TAB PO PRN ×2 (08:08→22:18)
[2019-01-10] MEDS: cloNIDine 0.1 MG (CATAPRES) TAB PO SCH ×3 (08:09→21:03)
[2019-01-10] MEDS: POLYETHYLENE GLYCOL 17 GM (MIRALAX) PACK PO SCH ×2 (08:09→21:08)
[2019-01-10] MEDS: BENAZEPRIL 40 MG TAB PO SCH (08:10)
[2019-01-10] MEDS: DOCUSATE SODIUM 100 MG (COLACE) CAP PO SCH ×2 (08:10→21:08)
[2019-01-10] MEDS: SENNA W/DOCUSATE (SENOKOT S) TABLET PO SCH ×2 (08:11→21:09)
[2019-01-10] MEDS: FLECAINIDE 100 MG (TAMBOCOR) TAB PO SCH ×2 (08:11→21:02)
[2019-01-10] MEDS: meTOproloL SUCCINATE 50 MG (TOPROL XL) TAB PO SCH (08:12)
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
--- NOTE | 2019-01-10 09:59 | NUR ---
PHYSICIAN SPECIALIST met with patient to complete initial assessment. Patient was alert and oriented and agreeable to assessment. Patient admitted to ARU from internally with debility following a left hip fracture sustained from a fall. Prior to hospitalization patient and spouse, Rachel resided in a one level home in [place], [place]; however, home is physically near [place] with an [place] address. The home has 4 steps at the entrance with railing. Patient reports independence with all activities prior to fall and did not utilize DME. However, due to spouses recent surgery a couple does possess a tub shower transfer bench, bedside commode and standard walker. Patient also intends to install grab bars in the bathroom. Primary contact identified as Rachel at [phone] and secondary contact as son of Trish Hinson at [phone]. Patient reports several friends that reside near the can provide assistance as needed. PCP identified as Dr. Jorge Alberto Evans, learning officer as Dr. Ling of and surgeon as Dr. Godoy. Insurance verified as Medicare and [facility] with prescription coverage. Patient utilizes expressed mail scripts as well as [facility] for local pharmacy needs. PHYSICIAN SPECIALIST reviewed typical a RU length of stay and weekly team conferences. Patient was supervision with all activities upon admission to ARU; therefore, he will likely benefit from a short stay before returning home. PHYSICIAN SPECIALIST will continue to follow for additional needs.
--- NOTE | 2019-01-10 10:45 | NUR ---
Pastoral care visit.
--- NOTE | 2019-01-10 11:22 | ST Cognitive Linguistic Eval ---
Speech Evaluation-General Medical Diagnosis L hip fx, ORIF Onset Date: Jan 04, 2019 Therapy Diagnosis Therapy Diagnosis: Cogitive-communication Precautions Precautions: Fall Precautions/Isolations: Fall Prevention, Standard Precautions Referral Referring Physician: Dr. Ace Reason for Referral: Evaluation/Treatment Medical History Pertinent Medical History: Atrial Fib, Arthritis, HTN, TBI HTN, Arthritis, TBI, Current History Hip fracture Reviewed History: Yes Social History Home: Single Level Current Living Status: Spouse Speech PLF-Current Status Prior Level of Function Patient lives at home with his where he was independent for his daily needs. Subjective The patient was cooperative and pleasant with the cognitive assessment process. Language Eval: Auditory Comprehends Simple Yes/No Ques: Functional Indent/Objects Multiple Dasilva: Functional Ident/Pics in Multiple Dasilva: Functional Follows 1-Step Commands: Functional Follows Complex Directions: Functional Follows General Conversations: Functional Language Eval: Verbal Language Completes Spontaneous Greeting: Functional Produces Auto, Serial Info: Functional Imitates Simple Words/Phrases: Functional Word Finding: Functional Requests Basic Needs: Functional States Basic Personal Info: Functional Expresses Complex Ideas: Functional Cognitive Patient Orientation The patient is oriented to all concepts. Objective Cognitive Domain Attention: WNL Memory: WNL Problem Solving: Functional Executive Functions: WNL Visuospatial Skills: WNL Composite Severity Rating: WNL Clock Drawing Severity Rating: WNL Score: 29/30 SLUMS Range: Normal Objective Formal/Standardized Tests [facility] Mental Status ([facility]) Results The patient scored a 29/30 which is within normal range. Oral Motor/Speech Production Within Functional Limits Impression The patient is a pleasant 63 year old male who was admitted to the ARU s/p hip fracture. The patient was given the SLUMS with score in the normal range. The patient does not require skilled ST services at this time. Communication/Social Cognition Comprehension: 7 Expression: 7 Social Interaction: 7 Problem Solvin Memory: 7 Speech Patient Assess Expression of Ideas/Wants: Expression (4) Understanding Verbal Content: Understands (4) Brief Interview-Mental Status: Yes Repetition of Three Words: Three (3) Temporal Orientation: Year: Correct (3) Temporal Orientation: Month: Accurate within 5 days(2) Temporal Orientation: Day: Correct (1) Recall : Wear to say "Sock": Yes, no cue required (2) Recall : Color: Yes, no cue required (2) Recall : Bed: Yes,after cueing (1) Add-Enter 99 if pt cannot comp: 99 Memory/Recall Ability: Current season, Location of own room, That he or she is in a hsp/hsp unit Speech-Plan Patient/Family Goals Patient/Family Goals: The patient plans on returning home with his post rehab. Treatment Plan Speech Therapy Treatment Plan: Discontinue ST The patient does not warrant skilled ST at this time. Treatment Duration: Jan 10, 2019 Frequency: 1 time per week Estimated Hrs Per Day: .25 hour per day Rehab Potential: Good Barriers to Learning: None identified Pt/Family Agrees to Plan: Yes Safety Risks/Education Teaching Recipient: Patient Teaching Methods: Discussion Response to Teaching: Verbalize Understanding Education Topics Provided: Safety within his room Time Speech Therapy Time In: 09:15 Speech Therapy Time Out: 09:30 Total Billed Time: 15 Billed Treatment Time 1, SPSNDCOMP LISA Osborn Jan 10, 2019 11:22
--- NOTE | 2019-01-10 11:28 | Occupational Ther Daily Note ---
OT Current Status-Daily Note Subjective Pt seen in room, up in recliner, agreeable to OT. Pain not mentioned. Appearance Alert, cooperative Mental Status/Objective Therapy Code Descriptions/Definitions Functional Levels Measure: 0=Not Assessed/NA 4=Minimal Assistance 1=Total Assistance 5=Supervision or Setup 2=Maximal Assistance 6=Modified Levels 3=Moderate Assistance 7=Complete Levels ADL-Treatment Pt got in and out of recliner with SBA, FWW. Walked to bathroom and transferred into shower with CGA (some difficulty side stepping). Washed and dried all parts (required long handled sponge to wash L leg), setup. Pt educ use of dressing stick for doffing pants and socks and donning pants (unable to get sock off L foot or pants over foot) and use of soft sock aid for donning socks. Dressed upper body with setup. Toileting SBA, including clothing management and hygiene. Stood at sink SBA to brush teeth, pt educ for walker placement. Walked back to recliner to shave, setup. Able to open packages, cut food, feed himself without help. Pt walked to shower room SBA, FWW and practiced tub transfer using transfer tub bench (he will have difficulty stepping into tub), after pt educ. Pt left up in recliner, all needs met. Therapy Code Descriptions/Definitions Functional Levels Measure: 0=Not Assessed/NA 4=Minimal Assistance 1=Total Assistance 5=Supervision or Setup 2=Maximal Assistance 6=Modified Levels 3=Moderate Assistance 7=Complete Levels Therapy Quality Codes: 6 Independent with activity with or without an assistive device 5 Patient requires set up or clean up by helper. Patient completes activity by themselves 4 Supervision or touching assist (CGA). Couch provide cues , steadying assist 3 The helper provides less than half the effort to complete the activity 2 The helper provides more than half the effort to complete the activity 1 Dependent. The helper does all the effort to complete an activity 7 Patient refused to complete or attempt activity 9 The patient did not perform the activity before the current illness or injury 88 Not attempted due to Medical conditions or safety concerns Eating (FIM): 7 (Able to open packages, cut food, feed himself. No dentures) Eating (QC): 6 Grooming (FIM): 5 (SBA at sink to brush teeth, FWW. Setup to shave and dry hair. Washed and dried face and hands in shower. ) Oral Hygiene (QC): 4 (SBA at sink, FWW) Bathing (FIM): 4 (Needed long handled sponge to wash/dry L lower leg and foot. Setup. Shower bench, grab bars, hand held shower. SBA standing to dry bottom) Bathing Location: L Arm, R Arm, L Upper Leg, R Upper Leg, R Lower Leg (including foot), Chest, Abdomen, Buttocks, Perineal Area Shower/Bathe Self (QC): 3 Upper Body (FIM): 5 (setup) Upper Body Dressing (QC): 5 (setup) Lower Body Dressing (FIM): 5 (SBA to stand and manage clothing. pt educ use of dressing stick and sock aid. FWW) Lower Body Dressing (QC): 4 (SBA) On/Off Footwear (QC): 4 (Supervision, pt educ use of devices) Toileting (FIM): 5 (Managed clothing and hygiene, SBA. Tall toilet with BSC over it. Grab bar, FWW) Toileting Hygiene (QC): 4 (SBA) Toilet/Commode Transfer (FIM): 5 (SBA, BSC over toilet, grab bar, FWW) Toilet Transfer (QC): 4 (SBA) Shower Transfer(FIM): 4 (CGA, shower bench, grab bars, FWW) Education OT Patient Education: Modified ADL techniques, Progress toward Goal/Update tx plan, Purpose of tx/functional activities, Safety issues, Transfer techniques, Use of adapted equipment Teaching Recipient: Patient Teaching Methods: Demonstration, Discussion Response to Teaching: Verbalize Understanding, Return Demonstration, Reinforcement Needed OT Short Term Goals Short Term Goals Time Frame: Jan 16, 2019 Eating(FIM): 7 Grooming(FIM): 6 Bathing(FIM): 5 Upper Body Dressing(FIM): 5 Lower Body Dressing(FIM): 4 Toileting(FIM): 5 Transfers (B,C,W/C) (FIM): 5 Toilet/Commode Transfer(FIM): 5 Shower Transfer(FIM): 5 Additional Short Term Goals: 1-Demonstrate ADL Tasks, 2-Verbalize Understanding, 3-ImproveStrength/Nataliya 1=Demonstrate adherence to instructed precautions during ADL tasks. 2=Patient will verbalize/demonstrate understanding of assistive devices/modifications for ADL. 3=Patient will improve strength/tolerance for activity to enable patient to perform ADL's. OT Retirement Goals Retirement Goals Time Frame: Jan 20, 2019 Eating (FIM): 7 Eating (QC): 6 Groomin Oral Hygiene (QC): 6 Bathing(FIM): 6 Shower/Bathe Self (QC): 6 Upper Body Dressing(FIM): 6 Upper Body Dressing (QC): 6 Lower Body Dressing(FIM): 6 Lower Body Dressing (QC): 6 On/Off Footwear (QC): 6 Toileting(FIM): 6 Toileting Hygiene (QC): 6 Toilet/Commode Transfer(FIM): 6 Toilet/Commode Transfer (QC): 6 Tub Transfer(FIM): 6 (or shower) Shower Transfer(FIM): 6 (or tub) Additional Goals: 1-Demonstrate ADL Tasks, 2-Verbalize Understanding, 3- ImproveStrength/Nataliya 1=Demonstrate adherence to instructed precautions during ADL tasks. 2=Patient will verbalize/demonstrate understanding of assistive devices/modifications for ADL. 3=Patient will improve strength/tolerance for activity to enable patient to perform ADL's. OT Education/Plan Discharge Recommendations Plan/Recommendations: Continue POC Treatment Plan/Plan of Care Patient would benefit from OT for education, treatment and training to promote independence in ADL's, mobility, safety and/or upper extremity function for ADL's. Plan of Care: ADL Retraining, Functional Mobility, Group Exercise/Act as Ind (education, exercise, activity tolerance, funct mobility, funct activ, socialization), UE Funct Exercise/Act, UE Neuromus Re-Ed/Coord, W/C Management Training Treatment Duration: Jan 20, 2019 Frequency: At least 5 of 7 days/Wk (IRF) Estimated Hrs Per Day: 1.5 hours per day Agreement: Yes Rehab Potential: Good Time/GCodes Start Time: 10:00 Stop Time: 11:00 Total Time Billed (hr/min): 60 Billed Treatment Time visit, 60 minutes ADL IONA JACQUES OT Jan 10, 2019 11:28
--- NOTE | 2019-01-10 13:01 | Cardiology Progress Note ---
Cardiology SOAP Progress Note Subjective: No cardiac complaints. Objective: I&O/Vital Signs 01/10/19 01/10/19 06:09 09:00 Temp 97.4 Pulse 65 Resp 16 B/P (MAP) 131/68 (89) Pulse Ox 98 O2 Delivery Room Air Room Air 01/10/19 00:00 Intake Total 400 ml Output Total 2 ml Balance 398 ml Weight (Pounds): 261 Weight (Ounces): 8.0 Weight (Calculated Kilograms): 118.041070 Respiratory: No accessory muscle use, No respiratory distress, No chest tender, No chest expansion is symmetric; chest is bilaterally symmetric; No lungs clear to percussion; lungs clear to auscultation; No crackles, No rhonchi, No rales, No stridor, No wheezing, No pleural rub, No other Cardiovascular: regular rate-rhythm; No irregularly irregular, No extra beats, No parasternal heave is noted, No JVD, No edema, No bradycardia, No tachycardia, No point of maximal impulse, No cardiac thrills are palpable; S1 and S2; No gallop/S3, No gallop/S4, No diastolic murmur, No systolic murmur, No friction rub, No click, No other Gastrointestional: No tender, No soft, No round, No distended, No pulsatile mass, No organomegaly, No guarding, No rebound, No tenderness, No hernia, No mass, No audible bowel sounds, No abnormal bowel sounds, No abdominal bruits, No spleenomegaly, No other Extremities: No normal range of motion, No non-tender, No normal inspection, No pedal edema, No calf tenderness, No normal capillary refill, No pelvis stable, No calf tenderness, No inflammation, No pedal edema, No slow capillary refill, No swelling, No other, No abrasion, No clubbing, No cyanosis, No ecchymosis, No laceration, No no lower extremity edema bilateral, No significant edema, No tenderness, No wound Neurologic/Psychiatric: No edging machine catcher II-XII nml as tested; no motor/sensory deficits, alert, normal mood/affect, oriented x 3; No abnormal cerebellar tests, No abnormal edging machine catcher II-XII, No abnormal gait, No aphasia, No EOM palsy, No facial droop , No motor weakness, No sensory deficit, No depressed affect, No disoriented x 3, No other, No grossly intact, No power is 5/5 both on sides A/P: Assessment/Dx: Paroxysmal atrial fibrillation, Left femoral head fracture. Plan: Post orthopedic surgery. Doing well. Inpatient rehabilitation. PAF: Continue flecainide and mexiletine for now. OAC. Thank you for your consultation. Please call me if you have any questions. Anette Calderón MD, FACP, FACC, FSCAI, FHRS, CCDS Interventional Cardiology Cardiac Electrophysiology Vascular Medicine and Endovascular Interventions Laura CALDERÓN MD Jan 10, 2019 13:01
--- NOTE | 2019-01-10 13:06 | Physical Therapy Daily Note ---
PT Daily Note-Current Subjective Pt agreeable to PT session. Pain Numeric Pain Scale: 0-No Pain Comment: pain increases in hip with movement and WB to 6-7/10 Appearance Nsg present at beginning of session, pt took pain med. At end of session, call light, phone and bedside table within reach Mental Status Patient Orientation: Person, Place, Time, Eyes Open, Situation, Normal For Age Transfers Therapy Code Descriptions/Definitions Functional [place] Measure: 0=Not Assessed/NA 4=Minimal Assistance 1=Total Assistance 5=Supervision or Setup 2=Maximal Assistance 6=Modified [place] 3=Moderate Assistance 7=Complete [place] Therapy Quality Codes: 6 Independent with activity with or without an assistive device 5 Patient requires set up or clean up by helper. Patient completes activity by themselves 4 Supervision or touching assist (CGA). [place] provide cues , steadying assist 3 The helper provides less than half the effort to complete the activity 2 The helper provides more than half the effort to complete the activity 1 Dependent. The helper does all the effort to complete an activity 7 Patient refused to complete or attempt activity 9 The patient did not perform the activity before the current illness or injury 88 Not attempted due to Medical conditions or safety concerns Transfers (B, C, W/C) (FIM): 4 Supine to/from Sit: 5 Sit to/from Stand: 4 (CGA provided) pt demonstrating good hand placement and safety with all transitions performed Weight Bearing Right Lower Extremity: Right Full Weight Bearing Left Lower Extremity: Left Weight Bearing/Tolerated Gait Training Does the Patient Walk?: Yes Gait (FIM): 2 Distance (FIM): 0=150-43 ft Distance: 130 x2 Gait Level of Assist: 4 (CGA to SBA provided) Gait Persons Needed: 1 Gait Assistive Device: FWW beginning with step to gait pattern, improved as distance increased and with verb inst, antalgic with decreased stance time and WB on LLE Stair Training Stair Training: Handrails/: 2 handrails Stairs (FIM): 4 #of Steps: 8 Stairs: Pattern: Step to Level of Assist: 4 (CGA and verb inst provided) slow performance, slight increased pain, pt stating he had a lot of apprehension about pain increasing but then was not quite as bad as he thought it was going to be Exercises Supine Ex: Bridging, Ankle pumps, Glut sets, Heel Slides, Short Arc Quads, Straight leg raise, Hip abd/add Supine Reps: 10 (x2, friction eliminated with LLE) Treatments transfers, bed mobility, gait, safety, education, functional mobility, stairs, activity tolerance, strength, ROM Assessment Current Status: Good Progress PT Short Term Goals Short Term Goals Time Frame: Jan 13, 2019 Transfers (B,C,W/C) (FIM): 5 Gait (FIM): 5 PT Senior Living Goals Cleaning Specialist Goals PT Cleaning Specialist Goals Time Frame: Jan 20, 2019 Transfers (B,C,W/C) (FIM): 7 Sit to Lying (QC): 6 Lying-Sitting on Side/Bed(QC): 6 Sit to Stand (QC): 6 Roll Left to Right (QC): 6 Chair/Dqp-ii-Eaiyg Xfer(QC): 6 Car Transfer (QC): 6 Does the Patient Walk: Yes Gait (FIM): 6 Gait distance (FIM): 3=150 ft Walk 10 feet (QC): 6 Walk 10ft-Uneven Surface(QC): 6 Walk 50ft with 2 Turns (QC): 6 Walk 150 ft (QC): 6 Gait Assistive Device: FWW Does the Pt use WC or Scooter?: No Stairs (FIM): 6 # of Steps: 12 1 Step (curb) (QC): 6 4 Steps (QC): 6 12 Steps (QC): 6 Picking up an Object (QC): 5 PT Plan Treatment/Plan Treatment Plan: Continue Plan of Care Treatment Plan: Bed Mobility, Education, Functional Activity Nataliya, Functional Strength, Group Therapy, Gait, Safety, Therapeutic Exercise, Transfers Treatment Duration: Jan 20, 2019 Frequency: At least 5 of 7 days/Wk (IRF) Estimated Hrs Per Day: 1.5 hours per day Patient and/or Family Agrees t: Yes Safety Risks/Education Patient Education: Gait Training, Transfer Techniques, Steps, Reviewed Use of Ice, Safety Issues Teaching Recipient: Patient Teaching Methods: Demonstration, Discussion Response to Teaching: Verbalize Understanding, Return Demonstration Time/GCodes Time In: 800 Time Out: 900 Total Billed Treatment Time: 60 Total Billed Treatment 1 visit, GT x2 units, EX x1 unit, FA x1 unit XAVI CABRERA PTA Jan 10, 2019 13:06
--- NOTE | 2019-01-10 14:21 | Occupational Ther Daily Note ---
OT Current Status-Daily Note Subjective Pt seen in room, up in recliner, agreeable to OT. No pain mentioned. He is a little stiff when first standing up, per his report. Appearance Alert, cooperative Mental Status/Objective Therapy Code Descriptions/Definitions Functional [place] Measure: 0=Not Assessed/NA 4=Minimal Assistance 1=Total Assistance 5=Supervision or Setup 2=Maximal Assistance 6=Modified [place] 3=Moderate Assistance 7=Complete [place] ADL-Treatment Therapy Code Descriptions/Definitions Functional [place] Measure: 0=Not Assessed/NA 4=Minimal Assistance 1=Total Assistance 5=Supervision or Setup 2=Maximal Assistance 6=Modified [place] 3=Moderate Assistance 7=Complete [place] Therapy Quality Codes: 6 Independent with activity with or without an assistive device 5 Patient requires set up or clean up by helper. Patient completes activity by themselves 4 Supervision or touching assist (CGA). [place] provide cues , steadying assist 3 The helper provides less than half the effort to complete the activity 2 The helper provides more than half the effort to complete the activity 1 Dependent. The helper does all the effort to complete an activity 7 Patient refused to complete or attempt activity 9 The patient did not perform the activity before the current illness or injury 88 Not attempted due to Medical conditions or safety concerns Other Treatment Sit to stand with SBA, then walked SBA with FWW to gym (over 75 ft). Pt got into chair with arms with SBA, no cues for hand placement. Pt completed 16 minutes bilat UE exercise on arm bike set at 35W resistance (increased 1 minute), with one brief recovery period, to strengthen arms to help with transfers, ADLs and functional mobility. Pt got up from chair with SBA and walked SBA for safety, FWW back to room (over 100 ft). Pt returned to recliner SBA and left up in recliner, all needs met. Education OT Patient Education: Exercise program, Progress toward Goal/Update tx plan, Purpose of tx/functional activities Teaching Recipient: Patient Teaching Methods: Demonstration, Discussion Response to Teaching: Verbalize Understanding OT Short Term Goals Short Term Goals Time Frame: Jan 16, 2019 Eating(FIM): 7 Grooming(FIM): 6 Bathing(FIM): 5 Upper Body Dressing(FIM): 5 Lower Body Dressing(FIM): 4 Toileting(FIM): 5 Transfers (B,C,W/C) (FIM): 5 Toilet/Commode Transfer(FIM): 5 Shower Transfer(FIM): 5 Additional Short Term Goals: 1-Demonstrate ADL Tasks, 2-Verbalize Understanding, 3-ImproveStrength/Nataliya 1=Demonstrate adherence to instructed precautions during ADL tasks. 2=Patient will verbalize/demonstrate understanding of assistive devices/modifications for ADL. 3=Patient will improve strength/tolerance for activity to enable patient to perform ADL's. OT Snf Goals Snf Goals Time Frame: Jan 20, 2019 Eating (FIM): 7 Eating (QC): 6 Groomin Oral Hygiene (QC): 6 Bathing(FIM): 6 Shower/Bathe Self (QC): 6 Upper Body Dressing(FIM): 6 Upper Body Dressing (QC): 6 Lower Body Dressing(FIM): 6 Lower Body Dressing (QC): 6 On/Off Footwear (QC): 6 Toileting(FIM): 6 Toileting Hygiene (QC): 6 Toilet/Commode Transfer(FIM): 6 Toilet/Commode Transfer (QC): 6 Tub Transfer(FIM): 6 (or shower) Shower Transfer(FIM): 6 (or tub) Additional Goals: 1-Demonstrate ADL Tasks, 2-Verbalize Understanding, 3- ImproveStrength/Nataliya 1=Demonstrate adherence to instructed precautions during ADL tasks. 2=Patient will verbalize/demonstrate understanding of assistive de vices/modifications for ADL. 3=Patient will improve strength/tolerance for activity to enable patient to perform ADL's. OT Education/Plan Discharge Recommendations Plan/Recommendations: Continue POC Treatment Plan/Plan of Care Patient would benefit from OT for education, treatment and training to promote independence in ADL's, mobility, safety and/or upper extremity function for ADL's. Plan of Care: ADL Retraining, Functional Mobility, Group Exercise/Act as Ind (education, exercise, activity tolerance, funct mobility, funct activ, socialization), UE Funct Exercise/Act, UE Neuromus Re-Ed/Coord, W/C Management Training Treatment Duration: Jan 20, 2019 Frequency: At least 5 of 7 days/Wk (IRF) Estimated Hrs Per Day: 1.5 hours per day Agreement: Yes Rehab Potential: Good Time/GCodes Start Time: 13:30 Stop Time: 14:00 Total Time Billed (hr/min): 30 Billed Treatment Time visit, 30 minutes exercise IONA JACQUES OT Jan 10, 2019 14:21
[2019-01-10 15:19] VITALS: BP 105/64
[2019-01-10] MEDS: amLODIPine 10 MG (NORVASC) TAB PO SCH (15:33)
[2019-01-10] MEDS: ATORVASTATIN 10 MG (LIPITOR) TABLET PO SCH (15:35)
--- NOTE | 2019-01-10 16:08 | Physical Therapy Daily Note ---
PT Daily Note-Current Subjective Pt siting in recliner upon arrival. Pt agrees to PT. Pain Numeric Pain Scale: 6 Location: Left Location Body Site: Hip Pain Description: Ache, Tightness Mental Status Patient Orientation: Person, Place, Time, Situation Transfers Therapy Code Descriptions/Definitions Functional [place] Measure: 0=Not Assessed/NA 4=Minimal Assistance 1=Total Assistance 5=Supervision or Setup 2=Maximal Assistance 6=Modified [place] 3=Moderate Assistance 7=Complete [place] Therapy Quality Codes: 6 Independent with activity with or without an assistive device 5 Patient requires set up or clean up by helper. Patient completes activity by themselves 4 Supervision or touching assist (CGA). [place] provide cues , steadying assist 3 The helper provides less than half the effort to complete the activity 2 The helper provides more than half the effort to complete the activity 1 Dependent. The helper does all the effort to complete an activity 7 Patient refused to complete or attempt activity 9 The patient did not perform the activity before the current illness or injury 88 Not attempted due to Medical conditions or safety concerns Scootin Sit to/from Stand: 5 Sit to Stand (QC): 5 Weight Bearing Right Lower Extremity: Right Full Weight Bearing Left Lower Extremity: Left Weight Bearing/Tolerated Gait Training Does the Patient Walk?: Yes Gait (FIM): 5 Distance (FIM): 3=150 ft Distance: 150' Walk 10 feet (QC): 5 Walk 50 ft with 2 Turns(QC): 5 Walk 150 ft (QC): 5 Gait Level of Assist: 5 Gait Persons Needed: 1 Gait Assistive Device: FWW Exercises NuStep Minutes: 15 NuStep Workload: 6 Treatments Pt transfers from recliner to standing. Pt ambulates in hallway using FWW. Pt uses NuStep for 15m at WL 6. Pt takes short RB then ambulates in hallway before returning to room to rest in recliner. Pt has all needs met, call light in hand. Assessment Current Status: Good Progress Pt tolerates tx well. PT Short Term Goals Short Term Goals Time Frame: Jan 13, 2019 Transfers (B,C,W/C) (FIM): 5 Gait (FIM): 5 PT Longterm Goals Outgoing Inspector Goals PT Outgoing Inspector Goals Time Frame: Jan 20, 2019 Transfers (B,C,W/C) (FIM): 7 Sit to Lying (QC): 6 Lying-Sitting on Side/Bed(QC): 6 Sit to Stand (QC): 6 Roll Left to Right (QC): 6 Chair/Evb-op-Gxeyc Xfer(QC): 6 Car Transfer (QC): 6 Does the Patient Walk: Yes Gait (FIM): 6 Gait distance (FIM): 3=150 ft Walk 10 feet (QC): 6 Walk 10ft-Uneven Surface(QC): 6 Walk 50ft with 2 Turns (QC): 6 Walk 150 ft (QC): 6 Gait Assistive Device: FWW Does the Pt use WC or Scooter?: No Stairs (FIM): 6 # of Steps: 12 1 Step (curb) (QC): 6 4 Steps (QC): 6 12 Steps (QC): 6 Picking up an Object (QC): 5 PT Plan Problem List Problem List: Activity Tolerance Treatment/Plan Treatment Plan: Continue Plan of Care Treatment Plan: Bed Mobility, Education, Functional Activity Nataliya, Functional Strength, Group Therapy, Gait, Safety, Therapeutic Exercise, Transfers Treatment Duration: Jan 20, 2019 Frequency: At least 5 of 7 days/Wk (IRF) Estimated Hrs Per Day: 1.5 hours per day Patient and/or Family Agrees t: Yes Safety Risks/Education Patient Education: Gait Training, Transfer Techniques, Correct Positioning, Safety Issues Teaching Recipient: Patient Teaching Methods: Discussion Response to Teaching: Verbalize Understanding Time/GCodes Time In: 1245 Time Out: 1315 Total Billed Treatment Time: 30 Total Billed Treatment 1, GT (15m) & EX (15m) G Codes Necessary: NEVAEH Edwards IMMIGRATION SERVICES OFFICER Jan 10, 2019 16:08
--- NOTE | 2019-01-10 19:56 | Individualized Plan of Care ---
Individualized Plan of Care Rehab Nursing IPOC Order Admission Date Jan 09, 2019 at 12:21 Current Orders Orders Admission Order(Inpt,Obs,Sdc) (01/09/19 10:55) Vital Signs: Per Unit Policy ( 08,16,00 (01/09/19 10:55) Station Baggage Agent-Inpt Rehab Con (01/09/19 10:55) Rehab Nursing Orders-Ipoc (01/09/19 10:55) Physical Therapy Rehab Orders (01/09/19 10:55) Occupational Therapy Rehab Ord (01/09/19 10:55) Speech Therapy Rehab Orders (01/09/19 10:55) General/Regular (01/09/19 Dinner) Intake & Output (01/09/19 10:55) Precautions (Aru) (01/09/19 10:55) Weekly Weight (Lbs) WEEK (01/09/19 10:55) Rehab-Intensity Of Therapy (01/09/19 10:55) Initiate Admission Nursing Pro .admission (01/09/19 10:55) Code/Resuscitation (01/09/19 13:19) Incentive Spirometry (Nursing) Q2H (01/09/19 13:19) Initiate Admission Nursing Pro .admission (01/09/19 13:19) Sequential Compression Device (01/09/19 13:19) Levar Hose (01/09/19 13:19) Apixaban Tablet (Eliquis Tablet) (01/09/19 21:00) Atorvastatin Tablet (Lipitor Tablet) (01/09/19 15:00) Flecainide Tablet (Tambocor Tablet) (01/09/19 21:00) Hydrocodone/Apap 5/325 Tablet (Lortab 5 (01/09/19 13:30) Lactated Ringers (Lr 1000 Ml Iv Solution (01/09/19 13:30) Mexiletine Capsule (Mexiletine Capsule) (01/09/19 21:00) Ondansetron Injection (Zofran Injectio (01/09/19 13:30) Patient May Use Own Meds, All (Patient M (01/09/19 13:30) Patient's Own Med(Rx Use Only) (Patient' (01/10/19 09:00) Amlodipine Tablet (Norvasc Tablet) (01/09/19 15:00) Clonidine Tablet (Catapres Tablet) (01/09/19 21:00) Fentanyl Injection (Sublimaze Injection (01/09/19 13:30) Metoprolol Succinate (Xl) Tab (Toprol Xl (01/10/19 09:00) Consult Cardiology (01/09/19 13:19) Consult Orthopedic Surgery (01/09/19 13:19) Acetaminophen Tablet (Tylenol Tablet) (01/09/19 13:30) Alprazolam Tablet (Xanax Tablet) (01/09/19 13:30) Calcium Carbonate Chew Tablet (Antacid C (01/09/19 13:30) Diphenhydramine Tablet (Benadryl Tablet) (01/09/19 13:30) Docusate Sodium Capsule (Colace Capsule) (01/09/19 13:30) Bisacodyl Suppository (Dulcolax Supposit (01/09/19 13:30) Loperamide Tablet (Imodium Tablet) (01/09/19 13:30) Melatonin Tablet (Melatonin Tablet) (01/09/19 13:30) Polyethylene Glycol Powder Pkt (Miralax (01/09/19 13:30) Senna S Tablet (Senokot S Tablet) (01/09/19 13:30) Patient Visit (01/09/19 ) Pt Eval Moderate Complexity (01/09/19 ) Functional Activities, Ea 15 (01/09/19 ) Patient Visit (01/09/19 ) Functional Activities, Ea 15 (01/09/19 ) Exercise Therap, Ea 15 Min (01/09/19 ) Therapeutic, Group (01/09/19 ) Ambulate 08,12,20 (01/09/19 15:14) Sequential Compression Device 08,20 (01/09/19 15:14) Dvt/Vte Risk - Notifiy Physici 08 (01/09/19 15:14) Mexiletine Capsule (Mexiletine Capsule) (01/09/19 18:15) Dressing Order (Intervention) UD (01/09/19 19:37) Patient Visit (01/10/19 ) Gait Training, Ea 15 Min (01/10/19 ) Exercise Therap, Ea 15 Min (01/10/19 ) Functional Activities, Ea 15 (01/10/19 ) Patient Visit (01/10/19 ) Speech Sound Lang Comp (01/10/19 ) Rehab Nursing Orders: Ongoing Assess. of Cognitive Status, Ongoing Assess. of Function Status, Bladder Management, Bowel Management, Disease Management & Educaiton, DVT Prophylaxis, Fall Prevention, Fluid/Electrolyte/Nutrition Mgmt, Infection Prevention, Medication Management & Education, Management of Risks & Complications, Management of Skin Intergrity, Nutrition Management, Pain Management, Patient/Family Support, Safety Management Intensity of Therapy to be met Patient to be seen: Min.3h per day/5 of 7d PT IPOC Problem List: Activity Tolerance Treatment Plan: Continue Plan of Care Bed Mobility, Education, Functional Activity Nataliya, Functional Strength, Group Therapy, Gait, Safety, Therapeutic Exercise, Transfers Treatment Duration: Jan 20, 2019 Frequency: At least 5 of 7 days/Wk (IRF) Estimated Hrs Per Day: 1.5 hours per day OT IPOC Problems: Decreased Activ Tolerance, Impaired I ADL's, Impaired Self-Care Skills OT Treatment, Training and Edu: Yes Plan of Care: ADL Retraining, Functional Mobility, Group Exercise/Act as Ind (education, exercise, activity tolerance, funct mobility, funct activ, socialization), UE Funct Exercise/Act, UE Neuromus Re-Ed/Coord, W/C Management Training Treatment Duration: Jan 20, 2019 Frequency: At least 5 of 7 days/Wk (IRF) Estimated Hrs Per Day: 1.[address] IPOC Speech Therapy Treatment Plan: Discontinue ST Treatment Duration: Jan 10, 2019 Frequency: 1 time per week Estimated Hrs Per Day: .25 hour per day Station Baggage Agent/Case Mgmt Station Baggage Agent/Case Managemen: Discharge Planning Dietitian/Network Technology Instructor Dietitian/Network Technology Instructor to monitor nutritional status and make changes and/or recommendations as needed and work with speech pathology on dietary upgrades as the occur. Physician IPOC Medical Issues being managed closely and that require the 24 hour availability of a physician: History of difficult to control paroxysmal atrial fibrillation with continued use of oral anticoagulation with severe pain from left hip fracture and fall ris k we will monitor blood pressure closely and abide by cardiology recommendations due to high risk for arrhythmia Medical Issues: Bowel/Bladder Function, DVT Prophylaxis, Falls Precautions, Fluid/Electrolyte/Nutrition Balance, Infection Protection, Pain Management Brief Synthesis of Preadmission Screen, Post-Admission Evaluation, and Therapy Evaluations: Physical therapy will work on ambulation with walker and graduate to less of an assistive device Occupational Therapy will focus on regaining independent ADL activity Medical Prognosis: Good Anticipated Length of Stay: 7 days MAEGAN OAKES DO Jan 10, 2019 19:56
[2019-01-11 06:00] VITALS: BP 116/62
[2019-01-11] MEDS: MEXILETINE 150 MG (MEXITIL) CAPSULE PO SCH ×2 (06:06→18:29)
[2019-01-11] MEDS: HYDROcodone/APAP 5 MG/325 MG (LORTAB) TAB PO PRN ×2 (07:42→18:30)
[2019-01-11] MEDS: SENNA W/DOCUSATE (SENOKOT S) TABLET PO SCH ×2 (07:44→20:32)
[2019-01-11] MEDS: POLYETHYLENE GLYCOL 17 GM (MIRALAX) PACK PO SCH ×2 (07:44→20:32)
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
--- NOTE | 2019-01-11 09:58 | Occupational Ther Daily Note ---
OT Current Status-Daily Note Subjective Pt alert, sitting in recliner. Pt agrees to therapy. No c/o pain at this time, stated that he had pain meds prior to session. Mental Status/Objective Patient Orientation: Person, Place, Time, Situation Therapy Code Descriptions/Definitions Functional [place] Measure: 0=Not Assessed/NA 4=Minimal Assistance 1=Total Assistance 5=Supervision or Setup 2=Maximal Assistance 6=Modified [place] 3=Moderate Assistance 7=Complete [place] ADL-Treatment Pt declined shower, toileting or grooming. Pt did demonstrate ability to doff socks without equipment and use sock aide for L sock. Declined to don shoes. Therapy Code Descriptions/Definitions Functional [place] Measure: 0=Not Assessed/NA 4=Minimal Assistance 1=Total Assistance 5=Supervision or Setup 2=Maximal Assistance 6=Modified [place] 3=Moderate Assistance 7=Complete [place] Therapy Quality Codes: 6 Independent with activity with or without an assistive device 5 Patient requires set up or clean up by helper. Patient completes activity by themselves 4 Supervision or touching assist (CGA). [place] provide cues , steadying assist 3 The helper provides less than half the effort to complete the activity 2 The helper provides more than half the effort to complete the activity 1 Dependent. The helper does all the effort to complete an activity 7 Patient refused to complete or attempt activity 9 The patient did not perform the activity before the current illness or injury 88 Not attempted due to Medical conditions or safety concerns On/Off Footwear (QC): 5 Other Treatment Pt ambulates with FWW to therapy gym. Completes UE strengthening and fine motor exercises to increase strength and coordination for daily functional tasks. Arm bike for 15 min at 35 hendricks resistance. Resistive pegs (50 each hand), resistive clothes pins (2x's each hand) with 2# wt attached to each wrist. Heavy resistance theraputty exercises. 3# hand wts for wrist flex/ext/radial flex (3 sets 10 reps each). Pt ambulated back to room after therapy. Sitting in recliner with call light/phone in reach. All needs met in room. OT Short Term Goals Short Term Goals Time Frame: Jan 16, 2019 Eating(FIM): 7 Grooming(FIM): 6 Bathing(FIM): 5 Upper Body Dressing(FIM): 5 Lower Body Dressing(FIM): 4 Toileting(FIM): 5 Transfers (B,C,W/C) (FIM): 5 Toilet/Commode Transfer(FIM): 5 Shower Transfer(FIM): 5 Additional Short Term Goals: 1-Demonstrate ADL Tasks, 2-Verbalize Understanding, 3-ImproveStrength/Nataliya 1=Demonstrate adherence to instructed precautions during ADL tasks. 2=Patient will verbalize/demonstrate understanding of assistive devices/modifications for ADL. 3=Patient will improve strength/tolerance for activity to enable patient to perform ADL's. OT Addiction Nurse Goals Fpc Goals Time Frame: Jan 20, 2019 Eating (FIM): 7 Eating (QC): 6 Groomin Oral Hygiene (QC): 6 Bathing(FIM): 6 Shower/Bathe Self (QC): 6 Upper Body Dressing(FIM): 6 Upper Body Dressing (QC): 6 Lower Body Dressing(FIM): 6 Lower Body Dressing (QC): 6 On/Off Footwear (QC): 6 Toileting(FIM): 6 Toileting Hygiene (QC): 6 Toilet/Commode Transfer(FIM): 6 Toilet/Commode Transfer (QC): 6 Tub Transfer(FIM): 6 (or shower) Shower Transfer(FIM): 6 (or tub) Additional Goals: 1-Demonstrate ADL Tasks, 2-Verbalize Understanding, 3- ImproveStrength/Nataliya 1=Demonstrate adherence to instructed precautions during ADL tasks. 2=Patient will verbalize/demonstrate understanding of assistive devices/modifications for ADL. 3=Patient will improve strength/tolerance for activity to enable patient to perform ADL's. OT Education/Plan Problem List/Assessment Assessment: Decreased UE Strength, Impaired Self-Care Skills Discharge Recommendations Plan/Recommendations: Continue POC Treatment Plan/Plan of Care Patient would benefit from OT for education, treatment and training to promote independence in ADL's, mobility, safety and/or upper extremity function for ADL's. Plan of Care: ADL Retraining, Functional Mobility, Group Exercise/Act as Ind (education, exercise, activity tolerance, funct mobility, funct activ, socialization), UE Funct Exercise/Act, UE Neuromus Re-Ed/Coord, W/C Management Training Treatment Duration: Jan 20, 2019 Frequency: At least 5 of 7 days/Wk (IRF) Estimated Hrs Per Day: 1.5 hours per day Agreement: Yes Rehab Potential: Good Time/GCodes Start Time: 08:30 Stop Time: 10:00 Total Time Billed (hr/min): 90 Billed Treatment Time 1 visit-EX 5 (75 min) FA 1 (15 min) MELBA CASTRO Jan 11, 2019 09:58
[2019-01-11 10:18] VITALS: BP 125/76
[2019-01-11] MEDS: APIXABAN 5 MG (ELIQUIS) TABLET PO SCH ×2 (10:18→20:28)
[2019-01-11] MEDS: DOCUSATE SODIUM 100 MG (COLACE) CAP PO SCH ×2 (10:18→20:29)
[2019-01-11] MEDS: FLECAINIDE 100 MG (TAMBOCOR) TAB PO SCH ×2 (10:19→20:28)
[2019-01-11] MEDS: cloNIDine 0.1 MG (CATAPRES) TAB PO SCH ×3 (10:19→20:28)
[2019-01-11] MEDS: BENAZEPRIL 40 MG TAB PO SCH (10:19)
[2019-01-11] MEDS: meTOproloL SUCCINATE 50 MG (TOPROL XL) TAB PO SCH (10:19)
--- NOTE | 2019-01-11 12:03 | Physical Therapy Daily Note ---
PT Daily Note-Current Subjective Pt. feels he is making food progress. Rates pain in left hip at 6/10 but improved during Rx. Pain Numeric Pain Scale: 6 Location: Left Location Body Site: Hip Pain Description: Stabbing Mental Status Patient Orientation: Normal For Age Transfers Therapy Code Descriptions/Definitions Functional [place] Measure: 0=Not Assessed/NA 4=Minimal Assistance 1=Total Assistance 5=Supervision or Setup 2=Maximal Assistance 6=Modified [place] 3=Moderate Assistance 7=Complete [place] Therapy Quality Codes: 6 Independent with activity with or without an assistive device 5 Patient requires set up or clean up by helper. Patient completes activity by themselves 4 Supervision or touching assist (CGA). [place] provide cues , steadying assist 3 The helper provides less than half the effort to complete the activity 2 The helper provides more than half the effort to complete the activity 1 Dependent. The helper does all the effort to complete an activity 7 Patient refused to complete or attempt activity 9 The patient did not perform the activity before the current illness or injury 88 Not attempted due to Medical conditions or safety concerns Transfers (B, C, W/C) (FIM): 6 Scootin Rollin Supine to/from Sit: 6 Sit to/from Stand: 6 Bed to/from Chair: 6 Weight Bearing Right Lower Extremity: Right Full Weight Bearing Left Lower Extremity: Left Weight Bearing/Tolerated Gait Training Does the Patient Walk?: Yes Gait (FIM): 5 Distance (FIM): 3=150 ft (165x2,50) Gait Level of Assist: 5 Gait Persons Needed: 1 Gait Assistive Device: FWW near up ad carmen status Wheelchair Training Does the Pt Use a Wheelchair?: No Exercises Supine Ex: Ankle pumps, Quad Set, Rolling, Glut sets, Heel Slides, Short Arc Quads, Scooting, Straight leg raise (x5 only on left), Hip abd/add Supine Reps: 15 Seated Therapy Exercises: Ankle pumps, Sit to stand, Long arc quads Seated Reps: 10 Standing: Hip Abduction, Hamstring curls, Heel/toe raises, Marching Standing Reps: 12 (left) NuStep Minutes: 10 NuStep Workload: 5 Assessment Current Status: Good Progress PT Short Term Goals Short Term Goals Time Frame: Jan 13, 2019 Transfers (B,C,W/C) (FIM): 5 Gait (FIM): 5 PT Senior Living Goals Senior Living Goals PT Senior Living Goals Time Frame: Jan 20, 2019 Transfers (B,C,W/C) (FIM): 7 Sit to Lying (QC): 6 Lying-Sitting on Side/Bed(QC): 6 Sit to Stand (QC): 6 Roll Left to Right (QC): 6 Chair/Zyg-wc-Wrxfm Xfer(QC): 6 Car Transfer (QC): 6 Does the Patient Walk: Yes Gait (FIM): 6 Gait distance (FIM): 3=150 ft Walk 10 feet (QC): 6 Walk 10ft-Uneven Surface(QC): 6 Walk 50ft with 2 Turns (QC): 6 Walk 150 ft (QC): 6 Gait Assistive Device: FWW Does the Pt use WC or Scooter?: No Stairs (FIM): 6 # of Steps: 12 1 Step (curb) (QC): 6 4 Steps (QC): 6 12 Steps (QC): 6 Picking up an Object (QC): 5 PT Plan Treatment/Plan Treatment Plan: Continue Plan of Care Treatment Plan: Bed Mobility, Education, Functional Activity Nataliya, Functional Strength, Group Therapy, Gait, Safety, Therapeutic Exercise, Transfers Treatment Duration: Jan 20, 2019 Frequency: At least 5 of 7 days/Wk (IRF) Estimated Hrs Per Day: 1.5 hours per day Patient and/or Family Agrees t: Yes Safety Risks/Education Patient Education: Gait Training, Transfer Techniques, Correct Positioning, Disease Process, Safety Issues Teaching Recipient: Patient Teaching Methods: Demonstration, Discussion Response to Teaching: Verbalize Understanding, Return Demonstration, Reinforcement Needed Time/GCodes Time In: 1100 Time Out: 1200 Total Billed Treatment Time: 60 Total Billed Treatment 1,EX35m,GT25m G Codes Necessary: BRADLEY Lubin HUMAN RELATIONS PROFESSOR Jan 11, 2019 12:03
--- NOTE | 2019-01-11 13:38 | Cardiology Progress Note ---
Cardiology SOAP Progress Note Subjective: No cardiac symptoms. Objective: I&O/Vital Signs 01/11/19 01/11/19 06:00 10:18 Temp 97.7 Pulse 59 65 Resp 20 B/P (MAP) 116/62 (80) 125/76 (92) Pulse Ox 97 O2 Delivery Room Air 01/11/19 00:00 Intake Total 1130 ml Output Total 625 ml Balance 505 ml Weight (Pounds): 261 Weight (Ounces): 8.0 Weight (Calculated Kilograms): 118.668788 Respiratory: No accessory muscle use, No respiratory distress, No chest tender, No chest expansion is symmetric; chest is bilaterally symmetric; No lungs clear to percussion; lungs clear to auscultation; No crackles, No rhonchi, No rales, No stridor, No wheezing, No pleural rub, No other Cardiovascular: regular rate-rhythm; No irregularly irregular, No extra beats, No parasternal heave is noted, No JVD, No edema, No bradycardia, No tachycardia, No point of maximal impulse, No cardiac thrills are palpable; S1 and S2; No gallop/S3, No gallop/S4, No diastolic murmur, No systolic murmur, No friction rub, No click, No other Gastrointestional: No tender, No soft, No round, No distended, No pulsatile mass, No organomegaly, No guarding, No rebound, No tenderness, No hernia, No mass, No audible bowel sounds, No abnormal bowel sounds, No abdominal bruits, No spleenomegaly, No other Extremities: No normal range of motion, No non-tender, No normal inspection, No pedal edema, No calf tenderness, No normal capillary refill, No pelvis stable, No calf tenderness, No inflammation, No pedal edema, No slow capillary refill, No swelling, No other, No abrasion, No clubbing, No cyanosis, No ecchymosis, No laceration, No no lower extremity edema bilateral, No significant edema, No tenderness, No wound Neurologic/Psychiatric: No subwarehouse supervisor II-XII nml as tested; no motor/sensory deficits, alert, normal mood/affect, oriented x 3; No abnormal cerebellar tests, No abnormal subwarehouse supervisor II-XII, No abnormal gait, No aphasia, No EOM palsy, No facial droop, No motor weakness, No sensory deficit, No depressed affect, No disoriented x 3, No other, No grossly intact, No power is 5/5 both on sides A/P: Assessment/Dx: Paroxysmal atrial fibrillation, Left femoral head fracture. Plan: Post orthopedic surgery. Doing well. Inpatient rehabilitation. PAF: Continue flecainide and mexiletine for now. OAC. Thank you for your consultation. Please call me if you have any questions. Anette Calderón MD, FACP, FACC, FSCAI, FHRS, CCDS Interventional Cardiology Cardiac Electrophysiology Vascular Medicine and Endovascular Interventions Laura CALDERÓN MD Jan 11, 2019 13:38
--- NOTE | 2019-01-11 14:45 | Physical Therapy Daily Note ---
PT Daily Note-Current Subjective Pt. agrees to Rx. Explains the situation with stairs at his home and that his sone will be home to help him if its needed at DC Pain Numeric Pain Scale: 6 Location: Left Location Body Site: Hip Pain Description: Pressure Mental Status Patient Orientation: Normal For Age Transfers Therapy Code Descriptions/Definitions Functional [place] Measure: 0=Not Assessed/NA 4=Minimal Assistance 1=Total Assistance 5=Supervision or Setup 2=Maximal Assistance 6=Modified [place] 3=Moderate Assistance 7=Complete [place] Therapy Quality Codes: 6 Independent with activity with or without an assistive device 5 Patient requires set up or clean up by helper. Patient completes activity by themselves 4 Supervision or touching assist (CGA). [place] provide cues , steadying assist 3 The helper provides less than half the effort to complete the activity 2 The helper provides more than half the effort to complete the activity 1 Dependent. The helper does all the effort to complete an activity 7 Patient refused to complete or attempt activity 9 The patient did not perform the activity before the current illness or injury 88 Not attempted due to Medical conditions or safety concerns sit to stand and sup to sit all Mod I Weight Bearing Right Lower Extremity: Right Full Weight Bearing Left Lower Extremity: Left Weight Bearing/Tolerated Gait Training Does the Patient Walk?: Yes Gait Assistive Device: FWW 200x2 SBA to Mod I, decreased hip ext noted , discussed/educated pt to lay flat with legs flat and head of bed flat to help stretch to nuetral at left hip flexors Stair Training Stair Training: Handrails/: 1 handrail (and one cane like home situation) Stairs (FIM): 3 #of Steps: 12 Level of Assist: 3 pt. needs sequence instruction and wt bearing instruction during gait, pt. has only one rail at home but has a cane . Pt. still having difficulty wt bearing on left and really resists this on stairs requiring mod to min wt bearing assistanc e. Pt. utilized cane on opposing side of rail ascending and descending . Exercises Seated Therapy Exercises: Ankle pumps, Sit to stand, Long arc quads Seated Reps: 8 Assessment Current Status: Good Progress stairs are challenging for pt. but he is motivated to get it right, son can assist at home, pt. hesitant to wt bear on LLE PT Short Term Goals Short Term Goals Time Frame: Jan 13, 2019 Transfers (B,C,W/C) (FIM): 5 Gait (FIM): 5 PT Fire Equipment Inspector Helper Goals Intermediate Goals PT Intermediate Goals Time Frame: Jan 20, 2019 Transfers (B,C,W/C) (FIM): 7 Sit to Lying (QC): 6 Lying-Sitting on Side/Bed(QC): 6 Sit to Stand (QC): 6 Rollin Roll Left to Right (QC): 6 Chair/Mmi-yx-Shviq Xfer(QC): 6 Car Transfer (QC): 6 Does the Patient Walk: Yes Gait (FIM): 6 Gait distance (FIM): 3=150 ft Walk 10 feet (QC): 6 Walk 10ft-Uneven Surface(QC): 6 Walk 50ft with 2 Turns (QC): 6 Walk 150 ft (QC): 6 Gait Assistive Device: FWW Does the Pt use WC or Scooter?: No Stairs (FIM): 6 # of Steps: 12 1 Step (curb) (QC): 6 4 Steps (QC): 6 12 Steps (QC): 6 Picking up an Object (QC): 5 PT Plan Treatment/Plan Treatment Plan: Continue Plan of Care Treatment Plan: Bed Mobility, Education, Functional Activity Nataliya, Functional Strength, Group Therapy, Gait, Safety, Therapeutic Exercise, Transfers Treatment Duration: Jan 20, 2019 Frequency: At least 5 of 7 days/Wk (IRF) Estimated Hrs Per Day: 1.5 hours per day Patient and/or Family Agrees t: Yes Safety Risks/Education Patient Education: Gait Training, Transfer Techniques, Steps Teaching Recipient: Patient Teaching Methods: Demonstration, Discussion Response to Teaching: Verbalize Understanding, Return Demonstration, Reinforcement Needed Time/GCodes Time In: 1405 Time Out: 1435 Total Billed Treatment Time: 30 Total Billed Treatment 1,GT15m,FA15m G Codes Necessary: No BRADLEY DYER EVENTS ASSISTANT Jan 11, 2019 14:45
--- NOTE | 2019-01-11 15:17 | NUR ---
CAR REPAIR SUPERVISOR met with patient to review team conference summary. As patient is MOD I with transfers and has been deemed safe to be up ad carmen. in room and standby assist with OT skills, team is recommended patient proceed with discharge on 727 with outpatient PT. Patient is agreeable to this and eager to return home. Patient would like to utilize [facility] outpatient therapy. CAR REPAIR SUPERVISOR contacted [facility] outpatient for scheduling, first available appointment is on 01/18 at 315 p.m. CAR REPAIR SUPERVISOR will continue to follow for additional needs.
[2019-01-11] MEDS: amLODIPine 10 MG (NORVASC) TAB PO SCH (16:31)
[2019-01-11] MEDS: ATORVASTATIN 10 MG (LIPITOR) TABLET PO SCH (16:31)
[2019-01-11 18:49] VITALS: BP 109/76
[2019-01-12 06:11] VITALS: BP 113/68
[2019-01-12] MEDS: MEXILETINE 150 MG (MEXITIL) CAPSULE PO SCH ×2 (06:14→18:31)
[2019-01-12] MEDS: DOCUSATE SODIUM 100 MG (COLACE) CAP PO SCH ×2 (08:07→18:29)
[2019-01-12] MEDS: APIXABAN 5 MG (ELIQUIS) TABLET PO SCH ×2 (08:07→20:29)
[2019-01-12] MEDS: HYDROcodone/APAP 5 MG/325 MG (LORTAB) TAB PO PRN ×2 (08:08→20:29)
[2019-01-12] MEDS: SENNA W/DOCUSATE (SENOKOT S) TABLET PO SCH ×2 (08:09→18:30)
[2019-01-12] MEDS: POLYETHYLENE GLYCOL 17 GM (MIRALAX) PACK PO SCH ×2 (08:10→18:29)
[2019-01-12] MEDS: FLECAINIDE 100 MG (TAMBOCOR) TAB PO SCH ×2 (08:10→20:31)
[2019-01-12] MEDS: meTOproloL SUCCINATE 50 MG (TOPROL XL) TAB PO SCH (08:11)
[2019-01-12] MEDS: BENAZEPRIL 40 MG TAB PO SCH (08:11)
[2019-01-12] MEDS: cloNIDine 0.1 MG (CATAPRES) TAB PO SCH ×3 (08:16→20:30)
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
--- NOTE | 2019-01-12 09:00 | Occupational Ther Daily Note ---
OT Current Status-Daily Note Subjective Pt alert, sitting in recliner. Pt agrees to therapy. C/o pain, nrsg came with meds at beginning of session. Mental Status/Objective Patient Orientation: Person, Place, Time, Situation Therapy Code Descriptions/Definitions Functional [place] Measure: 0=Not Assessed/NA 4=Minimal Assistance 1=Total Assistance 5=Supervision or Setup 2=Maximal Assistance 6=Modified [place] 3=Moderate Assistance 7=Complete [place] ADL-Treatment Pt agrees to shower. Pt ambulated with FWW to bathroom with supervision. Supervision for shower transfer using FWW, grabbars and shower bench. Pt completed shower using long handle sponge, grabbars, hand held shower and shower bench. After set up, pt was able to dress upper body, using AE pt able to dress lower body. Pt stood at sink, using sink for support, completed own grooming. Assist only to don/doff JOJO hose. After therapy, pt sitting in recliner with call light/phone in reach. All needs met in room. Therapy Code Descriptions/Definitions Functional [place] Measure: 0=Not Assessed/NA 4=Minimal Assistance 1=Total Assistance 5=Supervision or Setup 2=Maximal Assistance 6=Modified [place] 3=Moderate Assistance 7=Complete [place] Therapy Quality Codes: 6 Independent with activity with or without an assistive device 5 Patient requires set up or clean up by helper. Patient completes activity by themselves 4 Supervision or touching assist (CGA). [place] provide cues , steadying assist 3 The helper provides less than half the effort to complete the activity 2 The helper provides more than half the effort to complete the activity 1 Dependent. The helper does all the effort to complete an activity 7 Patient refused to complete or attempt activity 9 The patient did not perform the activity before the current illness or injury 88 Not attempted due to Medical conditions or safety concerns Grooming (FIM): 7 Oral Hygiene (QC): 6 Bathing (FIM): 6 Bathing Location: L Arm, R Arm, L Upper Leg, R Upper Leg, L Lower Leg (including foot), R Lower Leg (including foot), Chest, Abdomen, Buttocks, Perineal Area Shower/Bathe Self (QC): 6 Upper Body (FIM): 5 Upper Body Dressing (QC): 5 Lower Body Dressing (FIM): 5 Lower Body Dressing (QC): 5 On/Off Footwear (QC): 5 Shower Transfer(FIM): 5 OT Short Term Goals Short Term Goals Time Frame: Jan 16, 2019 Eating(FIM): 7 Grooming(FIM): 6 Bathing(FIM): 5 Upper Body Dressing(FIM): 5 Lower Body Dressing(FIM): 4 Toileting(FIM): 5 Transfers (B,C,W/C) (FIM): 5 Toilet/Commode Transfer(FIM): 5 Shower Transfer(FIM): 5 Additional Short Term Goals: 1-Demonstrate ADL Tasks, 2-Verbalize Understanding, 3-ImproveStrength/Nataliya 1=Demonstrate adherence to instructed precautions during ADL tasks. 2=Patient will verbalize/demonstrate understanding of assistive devices/modifications for ADL. 3=Patient will improve strength/tolerance for activity to enable patient to perform ADL's. OT Retirement Goals Special Education Teaching Assistant Goals Time Frame: Jan 20, 2019 Eating (FIM): 7 Eating (QC): 6 Groomin Oral Hygiene (QC): 6 Bathing(FIM): 6 Shower/Bathe Self (QC): 6 Upper Body Dressing(FIM): 6 Upper Body Dressing (QC): 6 Lower Body Dressing(FIM): 6 Lower Body Dressing (QC): 6 On/Off Footwear (QC): 6 Toileting(FIM): 6 Toileting Hygiene (QC): 6 Toilet/Commode Transfer(FIM): 6 Toilet/Commode Transfer (QC): 6 Tub Transfer(FIM): 6 (or shower) Shower Transfer(FIM): 6 (or tub) Additional Goals: 1-Demonstrate ADL Tasks, 2-Verbalize Understanding, 3- ImproveStrength/Nataliya 1=Demonstrate adherence to instructed precautions during ADL tasks. 2=Patient will verbalize/demonstrate understanding of assistive devices/modifications for ADL. 3=Patient will improve strength/tolerance for activity to enable patient to perform ADL's. OT Education/Plan Problem List/Assessment Assessment: Impaired Self-Care Skills Discharge Recommendations Plan/Recommendations: Continue POC Treatment Plan/Plan of Care Patient would benefit from OT for education, treatment and training to promote independence in ADL's, mobility, safety and/or upper extremity function for ADL's. Plan of Care: ADL Retraining, Functional Mobility, Group Exercise/Act as Ind (education, exercise, activity tolerance, funct mobility, funct activ, socializ ation), UE Funct Exercise/Act, UE Neuromus Re-Ed/Coord, W/C Management Training Treatment Duration: Jan 20, 2019 Frequency: At least 5 of 7 days/Wk (IRF) Estimated Hrs Per Day: 1.5 hours per day Agreement: Yes Rehab Potential: Good Time/GCodes Start Time: 08:00 Stop Time: 09:00 Total Time Billed (hr/min): 60 Billed Treatment Time 1 visit-ADL 4 (60 min) MELBA CASTRO Jan 12, 2019 09:00
--- NOTE | 2019-01-12 11:03 | Physical Therapy Daily Note ---
PT Daily Note-Current Subjective Pt sitting in recliner upon arrival. Pt agrees to PT. Pain Numeric Pain Scale: 5-Moderate Pain Location: Left Location Body Site: Hip Pain Description: Ache Comment: By end of tx, pain had increased from amount of walking Mental Status Patient Orientation: Person, Place, Time, Situation Transfers Therapy Code Descriptions/Definitions Functional [place] Measure: 0=Not Assessed/NA 4=Minimal Assistance 1=Total Assistance 5=Supervision or Setup 2=Maximal Assistance 6=Modified [place] 3=Moderate Assistance 7=Complete [place] Therapy Quality Codes: 6 Independent with activity with or without an assistive device 5 Patient requires set up or clean up by helper. Patient completes activity by themselves 4 Supervision or touching assist (CGA). [place] provide cues , steadying assist 3 The helper provides less than half the effort to complete the activity 2 The helper provides more than half the effort to complete the activity 1 Dependent. The helper does all the effort to complete an activity 7 Patient refused to complete or attempt activity 9 The patient did not perform the activity before the current illness or injury 88 Not attempted due to Medical conditions or safety concerns Scootin Sit to/from Stand: 6 Sit to Stand (QC): 6 Weight Bearing Right Lower Extremity: Right Full Weight Bearing Left Lower Extremity: Left Weight Bearing/Tolerated Gait Training Does the Patient Walk?: Yes Gait (FIM): 6 Distance (FIM): 3=150 ft Distance: 350' Walk 10 feet (QC): 6 Walk 50 ft with 2 Turns(QC): 6 Walk 150 ft (QC): 6 Gait Level of Assist: 6 Gait Persons Needed: 1 Gait Assistive Device: FWW Pt is improving with ambulation and is now Ad carmen in his room. Nursing is aware. Wheelchair Training Does the Pt Use a Wheelchair?: No Stair Training Stair Training: Handrails/: 1 handrail, uses cane #of Steps: 12 1 Step (curb) (QC): 4 4 Steps (QC): 4 12 Steps (QC): 4 Stairs: Pattern: Step to Level of Assist: 4 Exercises NuStep Minutes: 15 NuStep Workload: 6 Treatments Pt transfers from sitting to standing. Pt ambulates using FWW in hallway. Pt uses NuStep for 15m at WL 6 followed by short RB. Pt completes 2 sets of 12 steps with RB after each set of 12. Pt ambulates in hallway before returning to room to rest. Pt sits in recliner with all needs met, call light next to pt. Assessment Current Status: Good Progress Pt reports less pain while completing more upright activity before needing RB. PT Short Term Goals Short Term Goals Time Frame: Jan 13, 2019 Transfers (B,C,W/C) (FIM): 5 Gait (FIM): 5 PT Correction Goals Forest Fire Fighter Goals PT Forest Fire Fighter Goals Time Frame: Jan 20, 2019 Transfers (B,C,W/C) (FIM): 7 Sit to Lying (QC): 6 Lying-Sitting on Side/Bed(QC): 6 Sit to Stand (QC): 6 Rollin Roll Left to Right (QC): 6 Chair/Nby-vj-Tigla Xfer(QC): 6 Car Transfer (QC): 6 Does the Patient Walk: Yes Gait (FIM): 6 Gait distance (FIM): 3=150 ft Walk 10 feet (QC): 6 Walk 10ft-Uneven Surface(QC): 6 Walk 50ft with 2 Turns (QC): 6 Walk 150 ft (QC): 6 Gait Assistive Device: FWW Does the Pt use WC or Scooter?: No Stairs (FIM): 6 # of Steps: 12 1 Step (curb) (QC): 6 4 Steps (QC): 6 12 Steps (QC): 6 Picking up an Object (QC): 5 PT Plan Problem List Problem List: Activity Tolerance Treatment/Plan Treatment Plan: Continue Plan of Care Treatment Plan: Bed Mobility, Education, Functional Activity Nataliya, Functional Strength, Group Therapy, Gait, Safety, Therapeutic Exercise, Transfers Treatment Duration: Jan 20, 2019 Frequency: At least 5 of 7 days/Wk (IRF) Estimated Hrs Per Day: 1.5 hours per day Patient and/or Family Agrees t: Yes Safety Risks/Education Patient Education: Gait Training, Steps, Correct Positioning, Safety Issues Teaching Recipient: Patient Teaching Methods: Discussion Response to Teaching: Verbalize Understanding Time/GCodes Time In: 900 Time Out: 1000 Total Billed Treatment Time: 60 Total Billed Treatment 1, GT (20m), FA x2 (25m) & EX (15m) G Codes Necessary: No NEVAEH RAY BEHAVIORAL HEALTH COUNSELOR Jan 12, 2019 11:03
[2019-01-12] MEDS: ATORVASTATIN 10 MG (LIPITOR) TABLET PO SCH (14:26)
[2019-01-12] MEDS: amLODIPine 10 MG (NORVASC) TAB PO SCH (14:27)
--- NOTE | 2019-01-12 14:54 | Therapy Group Daily Note ---
Therapy Daily Group Note Patient Education Topic Other List Below (Proper Transfer Techniques & Equipment or Techniques to aid with opening containers or lids) Exercises LE Seated Exercise, UE Exercise Session Ratio (pt:therapist): 3:1 Goal of Session: Home Safety Strategies, UE/LE Strengthing, Safety with Transfers, Use of Adaptive Equipment Goal Met for this Session: Yes Pt Benefit of Group: Contributions to Others, F/U Use of Strategies @Home, Increased Functional Safety, Increased Functional Strength, Improved Cognition, Recognition of Peers, Socialization Other/Notes Pt ambulates to PT/OT Group using FWW. Group consists of Introductions (Name, Where you are from & Favorite Summertime Activity), Socialization, Patient led UE & LE Seated Exercises, Proper Transfer Techniques as well as Techniques & Equipment to aid with opening containers & lids (fine motor skills). Pt meets goals during tx by actively participating in exercises, giving steps to proper transfers as well as what patient personally uses or ways patient is able to open containers and lids. Pt returns to room at end of Group to rest. Pt has all needs met. Start Time: 13:00 Stop Time: 14:00 Total Billed Treatment Time: 60 Total Billed Treatment 1, GRP (60m) NEVAEH RAY MANAGER PROCUREMENT Jan 12, 2019 14:54
[2019-01-12 15:42] VITALS: BP 124/76
--- NOTE | 2019-01-12 16:40 | Cardiology Progress Note ---
Cardiology SOAP Progress Note Subjective: no cardiac complaints. Objective: I&O/Vital Signs 01/12/19 01/12/19 06:11 15:42 Temp 98.0 97.5 Pulse 61 64 Resp 16 16 B/P (MAP) 113/68 (83) 124/76 (92) Pulse Ox 97 99 O2 Delivery Room Air Room Air 01/12/19 00:00 Intake Total 350 ml Output Total 350 ml Balance 0 ml Weight (Pounds): 261 Weight (Ounces): 8.0 Weight (Calculated Kilograms): 118.147005 Respiratory: No accessory muscle use, No respiratory distress, No chest tender, No chest expansion is symmetric; chest is bilaterally symmetric; No lungs clear to percussion; lungs clear to auscultation; No crackles, No rhonchi, No rales, No stridor, No wheezing, No pleural rub, No other Cardiovascular: regular rate-rhythm; No irregularly irregular, No extra beats, No parasternal heave is noted, No JVD, No edema, No bradycardia, No tachycardia, No point of maximal impulse, No cardiac thrills are palpable; S1 and S2; No gallop/S3, No gallop/S4, No diastolic murmur, No systolic murmur, No friction rub, No click, No other Gastrointestional: No tender, No soft, No round, No distended, No pulsatile mass, No organomegaly, No guarding, No rebound, No tenderness, No hernia, No mass, No audible bowel sounds, No abnormal bowel sounds, No abdominal bruits, No spleenomegaly, No other Extremities: No normal range of motion, No non-tender, No normal inspection, No pedal edema, No calf tenderness, No normal capillary refill, No pelvis stable, No calf tenderness, No inflammation, No pedal edema, No slow capillary refill, No swelling, No other, No abrasion, No clubbing, No cyanosis, No ecchymosis, No laceration, No no lower extremity edema bilateral, No significant edema, No tenderness, No wound Neurologic/Psychiatric: No metal cabinet finisher II-XII nml as tested; no motor/sensory deficits, alert, normal mood/affect, oriented x 3; No abnormal cerebellar tests, No abnormal metal cabinet finisher II-XII, No abnormal gait, No aphasia, No EOM palsy, No facial droop, No motor weakness, No sensory deficit, No depressed affect, No disoriented x 3, No other, No grossly intact, No power is 5/5 both on sides A/P: Assessment/Dx: Paroxysmal atrial fibrillation, Left femoral head fracture. Plan: Post orthopedic surgery. Doing well. Inpatient rehabilitation. PAF: Continue flecainide and mexiletine for now. OAC. Thank you for your consultation. Please call me if you have any questions. Anette Calderón MD, FACP, FACC, FSCAI, FHRS, CCDS Interventional Cardiology Cardiac Electrophysiology Vascular Medicine and Endovascular Interventions Laura CALDERÓN MD Jan 12, 2019 16:40
[2019-01-13 05:37] VITALS: BP 117/70
[2019-01-13] MEDS: MEXILETINE 150 MG (MEXITIL) CAPSULE PO SCH ×2 (06:22→18:11)
[2019-01-13] MEDS: HYDROcodone/APAP 5 MG/325 MG (LORTAB) TAB PO PRN ×2 (07:00→21:13)
--- NOTE | 2019-01-13 07:57 | Occupational Ther Daily Note ---
OT Current Status-Daily Note Subjective Pt alert, sitting in recliner. Pt agrees to therapy. Pt c/o pain, nrsg brought meds. Mental Status/Objective Patient Orientation: Person, Place, Time, Situation Therapy Code Descriptions/Definitions Functional [place] Measure: 0=Not Assessed/NA 4=Minimal Assistance 1=Total Assistance 5=Supervision or Setup 2=Maximal Assistance 6=Modified [place] 3=Moderate Assistance 7=Complete [place] ADL-Treatment Pt agrees to shower. Therapy Code Descriptions/Definitions Functional [place] Measure: 0=Not Assessed/NA 4=Minimal Assistance 1=Total Assistance 5=Supervision or Setup 2=Maximal Assistance 6=Modified [place] 3=Moderate Assistance 7=Complete [place] Therapy Quality Codes: 6 Independent with activity with or without an assistive device 5 Patient requires set up or clean up by helper. Patient completes activity by themselves 4 Supervision or touching assist (CGA). [place] provide cues , steadying assist 3 The helper provides less than half the effort to complete the activity 2 The helper provides more than half the effort to complete the activity 1 Dependent. The helper does all the effort to complete an activity 7 Patient refused to complete or attempt activity 9 The patient did not perform the activity before the current illness or injury 88 Not attempted due to Medical conditions or safety concerns Eating (FIM): 7 (Pt able to open containers/packages and use regular utensil to eat.) Eating (QC): 6 Grooming (FIM): 7 (Using counter for stabilization, pt stands at sink to complete own grooming.) Oral Hygiene (QC): 6 Bathing (FIM): 6 (Using long handle sponge, grabbars, hand held shower and shower bench pt completes by self.) Bathing Location: L Arm, R Arm, L Upper Leg, R Upper Leg, L Lower Leg (including foot), R Lower Leg (including foot), Chest, Abdomen, Buttocks, Perineal Area Shower/Bathe Self (QC): 6 Upper Body (FIM): 6 (Retreives with FWW and dresses self.) Upper Body Dressing (QC): 6 Lower Body Dressing (FIM): 6 (Retreives with FWW and dresses self using lower body AE.) Lower Body Dressing (QC): 6 On/Off Footwear (QC): 6 Toileting (FIM): 6 (Using FWW and grabbars, pt able to complete.) Toileting Hygiene (QC): 6 Transfers (B, C, W/C) (FIM): 6 Toilet/Commode Transfer (FIM): 6 (Using grabbars and FWW) Toilet Transfer (QC): 6 Shower Transfer(FIM): 6 (Using grabbars, FWW and shower bench.) Other Treatment Pt ambulated to therapy gym to complete arm bike for 15 min at 50 hendricks resistance to increase strength and activity tolerance for daily functional tasks. After therapy, pt sitting in recliner with call light/phone in reach. All needs met in room. OT Short Term Goals Short Term Goals Time Frame: Jan 16, 2019 Eating(FIM): 7 Grooming(FIM): 6 Bathing(FIM): 5 Upper Body Dressing(FIM): 5 Lower Body Dressing(FIM): 4 Toileting(FIM): 5 Transfers (B,C,W/C) (FIM): 5 Toilet/Commode Transfer(FIM): 5 Shower Transfer(FIM): 5 Additional Short Term Goals: 1-Demonstrate ADL Tasks, 2-Verbalize Understanding, 3-ImproveStrength/Nataliya 1=Demonstrate adherence to instructed precautions during ADL tasks. 2=Patient will verbalize/demonstrate understanding of assistive devices/modifications for ADL. 3=Patient will improve strength/tolerance for activity to enable patient to perform ADL's. OT Early Childhood Associate Teacher Goals Early Childhood Associate Teacher Goals Time Frame: Jan 20, 2019 Eating (FIM): 7 Eating (QC): 6 Groomin Oral Hygiene (QC): 6 Bathing(FIM): 6 Shower/Bathe Self (QC): 6 Upper Body Dressing(FIM): 6 Upper Body Dressing (QC): 6 Lower Body Dressing(FIM): 6 Lower Body Dressing (QC): 6 On/Off Footwear (QC): 6 Toileting(FIM): 6 Toileting Hygiene (QC): 6 Toilet/Commode Transfer(FIM): 6 Toilet/Commode Transfer (QC): 6 Tub Transfer(FIM): 6 (or shower) Shower Transfer(FIM): 6 (or tub) Additional Goals: 1-Demonstrate ADL Tasks, 2-Verbalize Understanding, 3- ImproveStrength/Nataliya 1=Demonstrate adherence to instructed precautions during ADL tasks. 2=Patient will verbalize/demonstrate understanding of assistive devices/modifications for ADL. 3=Patient will improve strength/tolerance for activity to enable patient to perform ADL's. OT Education/Plan Problem List/Assessment Assessment: Impaired Self-Care Skills Discharge Recommendations Plan/Recommendations: Continue POC Treatment Plan/Plan of Care Patient would benefit from OT for education, treatment and training to promote independence in ADL's, mobility, safety and/or upper extremity function for ADL's. Plan of Care: ADL Retraining, Functional Mobility, Group Exercise/Act as Ind (education, exercise, activity tolerance, funct mobility, funct activ, socialization), UE Funct Exercise/Act, UE Neuromus Re-Ed/Coord, W/C Management Training Treatment Duration: Jan 20, 2019 Frequency: At least 5 of 7 days/Wk (IRF) Estimated Hrs Per Day: 1.5 hours per day Agreement: Yes Rehab Potential: Good Time/GCodes Start Time: 06:50 Stop Time: 07:50 Total Time Billed (hr/min): 60 Billed Treatment Time 1 visit-ADL 3 (45 min) EX 1 (15 min) MELBA CASTRO Jan 13, 2019 07:57
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
[2019-01-13] MEDS: cloNIDine 0.1 MG (CATAPRES) TAB PO SCH ×3 (10:19→21:06)
[2019-01-13] MEDS: APIXABAN 5 MG (ELIQUIS) TABLET PO SCH ×2 (10:20→21:06)
[2019-01-13] MEDS: BENAZEPRIL 40 MG TAB PO SCH (10:20)
[2019-01-13] MEDS: DOCUSATE SODIUM 100 MG (COLACE) CAP PO SCH ×2 (10:20→21:08)
[2019-01-13] MEDS: FLECAINIDE 100 MG (TAMBOCOR) TAB PO SCH ×2 (10:21→21:08)
[2019-01-13] MEDS: meTOproloL SUCCINATE 50 MG (TOPROL XL) TAB PO SCH (10:21)
[2019-01-13] MEDS: SENNA W/DOCUSATE (SENOKOT S) TABLET PO SCH ×2 (10:34→21:08)
[2019-01-13] MEDS: POLYETHYLENE GLYCOL 17 GM (MIRALAX) PACK PO SCH ×2 (10:34→21:08)
--- NOTE | 2019-01-13 10:34 | Physical Therapy Daily Note ---
PT Daily Note-Current Subjective Pt. agrees to Rx. States he is sore today but feels he is making good progress. Pain Numeric Pain Scale: 3 Location: Left Location Body Site: Hip Pain Description: Throbbing Comment: with extended period of wt bearing Mental Status Patient Orientation: Normal For Age Transfers Therapy Code Descriptions/Definitions Functional [place] Measure: 0=Not Assessed/NA 4=Minimal Assistance 1=Total Assistance 5=Supervision or Setup 2=Maximal Assistance 6=Modified [place] 3=Moderate Assistance 7=Complete [place] Therapy Quality Codes: 6 Independent with activity with or without an assistive device 5 Patient requires set up or clean up by helper. Patient completes activity by themselves 4 Supervision or touching assist (CGA). [place] provide cues , steadying assist 3 The helper provides less than half the effort to complete the activity 2 The helper provides more than half the effort to complete the activity 1 Dependent. The helper does all the effort to complete an activity 7 Patient refused to complete or attempt activity 9 The patient did not perform the activity before the current illness or injury 88 Not attempted due to Medical conditions or safety concerns Transfers (B, C, W/C) (FIM): 6 Scootin Rollin Roll Left to Right (QC): 6 Supine to/from Sit: 6 Sit to/from Stand: 6 Sit to Lying (QC): 6 Sit to Stand (QC): 6 Chair/Ffs-hp-[place] Xfer(QC): 6 Bed to/from Chair: 6 Car Transfer (QC): 6 Weight Bearing Right Lower Extremity: Right Full Weight Bearing Left Lower Extremity: Left Weight Bearing/Tolerated Gait Training Does the Patient Walk?: Yes Gait (FIM): 6 Distance (FIM): 3=150 ft (175x3) Walk 10 feet (QC): 6 Walk 50 ft with 2 Turns(QC): 6 Walk 150 ft (QC): 6 Walking 10ft/uneven surface-QC: 6 Gait Level of Assist: 6 Gait Persons Needed: 0 Gait Assistive Device: FWW emphasized equal step length and flow , shows progress Stair Training Stair Training: Handrails/: 1 handrail (plus one cane) Stairs (FIM): 5 #of Steps: 12 1 Step (curb) (QC): 5 4 Steps (QC): 5 12 Steps (QC): 5 Stairs: Pattern: Step to Level of Assist: 5 instruction for sequence and wt bearing Balance Special Test Comments 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 Exercises Supine Ex: Ankle pumps, Quad Set, Rolling, Glut sets, Heel Slides, Short Arc Quads, Scooting, Straight leg raise, Hip abd/add Supine Reps: 15 Seated Therapy Exercises: Ankle pumps, Sit to stand, Long arc quads, Hip abd/add Seated Reps: 15 NuStep Minutes: 10 NuStep Workload: 5 Assessment Current Status: Good Progress meets goals, up ad carmen PT Short Term Goals Short Term Goals Time Frame: Jan 13, 2019 Transfers (B,C,W/C) (FIM): 5 Gait (FIM): 5 PT Last Model Department Supervisor Goals Last Model Department Supervisor Goals PT Detention Goals Time Frame: Jan 20, 2019 Transfers (B,C,W/C) (FIM): 7 Sit to Lying (QC): 6 Lying-Sitting on Side/Bed(QC): 6 Sit to Stand (QC): 6 Rollin Roll Left to Right (QC): 6 Chair/Hjf-uc-Bsznk Xfer(QC): 6 Car Transfer (QC): 6 Does the Patient Walk: Yes Gait (FIM): 6 Gait distance (FIM): 3=150 ft Walk 10 feet (QC): 6 Walk 10ft-Uneven Surface(QC): 6 Walk 50ft with 2 Turns (QC): 6 Walk 150 ft (QC): 6 Gait Assistive Device: FWW Does the Pt use WC or Scooter?: No Stairs (FIM): 6 # of Steps: 12 1 Step (curb) (QC): 6 4 Steps (QC): 6 12 Steps (QC): 6 Picking up an Object (QC): 5 PT Plan Treatment/Plan Treatment Plan: Continue Plan of Care Treatment Plan: Bed Mobility, Education, Functional Activity Nataliya, Functional Strength, Group Therapy, Gait, Safety, Therapeutic Exercise, Transfers Treatment Duration: Jan 20, 2019 Frequency: At least 5 of 7 days/Wk (IRF) Estimated Hrs Per Day: 1.5 hours per day Patient and/or Family Agrees t: Yes Safety Risks/Education Patient Education: Gait Training, Transfer Techniques, Steps, Correct Positioning, Disease Process, Safety Issues Teaching Recipient: Patient Teaching Methods: Demonstration, Discussion Response to Teaching: Verbalize Understanding, Return Demonstration, Reinforcement Needed Time/GCodes Time In: 930 Time Out: 1030 Total Billed Treatment Time: 60 Total Billed Treatment 1,[id number] G Codes Necessary: No BRADLEY DYER PICK PULLING MACHINE OPERATOR Jan 13, 2019 10:34
[2019-01-13] MEDS ORDERED: ACHD5005 PO (12:25)
[2019-01-13] MEDS ORDERED: SENN-20 PO (12:25)
--- NOTE | 2019-01-13 14:41 | Therapy Group Daily Note ---
Therapy Daily Group Note Patient Education Topic Other List Below (memory) Session Ratio (pt:therapist): 4:1 Goal of Session: Memory Strategies Goal Met for this Session: Yes Pt Benefit of Group: Contributions to Others, Improved Cognition, Recognition of Peers, Socialization Other/Notes Pt ambulated using FWW to [facility] for OT/PT group. Group consisted of introductions (name, place living, love water? Why?), socialization, educational topic of memory and memory activities. Pt introduced self correctly and actively listened to peers. Pt acknowledged educational topic and was able to verbalize personal strategies and memory exercises that can be completed to increase STM. Pt was able to participate in memory activity fully and demonstrated good memory techniques. After group, pt ambulated back to room to lay in bed. Call light/phone in reach. All needs met in room. Start Time: 13:00 Stop Time: 14:10 Total Billed Treatment Time: 70 Total Billed Treatment 1-GRP MELBA CASTRO Jan 13, 2019 14:41
[2019-01-13] MEDS: amLODIPine 10 MG (NORVASC) TAB PO SCH (15:10)
[2019-01-13] MEDS: ATORVASTATIN 10 MG (LIPITOR) TABLET PO SCH (15:10)
[2019-01-13 18:11] VITALS: BP 113/60
--- NOTE | 2019-01-13 19:34 | Cardiology Progress Note ---
Cardiology SOAP Progress Note Subjective: No cardiac complaints. Objective: I&O/Vital Signs 01/13/19 01/13/19 08:25 18:11 Temp 97.4 Pulse 64 Resp 16 B/P (MAP) 113/60 (77) Pulse Ox 98 O2 Delivery Nasal Cannula Room Air 01/13/19 00:00 Intake Total 850 ml Output Total 400 ml Balance 450 ml Weight (Pounds): 261 Weight (Ounces): 8.0 Weight (Calculated Kilograms): [id number] Respiratory: No accessory muscle use, No respiratory distress, No chest tender, No chest expansion is symmetric; chest is bilaterally symmetric; No lungs clear to percussion; lungs clear to auscultation; No crackles, No rhonchi, No rales, No stridor, No wheezing, No pleural rub, No other Cardiovascular: regular rate-rhythm; No irregularly irregular, No extra beats, No parasternal heave is noted, No JVD, No edema, No bradycardia, No tachycardia, No point of maximal impulse, No cardiac thrills are palpable; S1 and S2; No gallop/S3, No gallop/S4, No diastolic murmur, No systolic murmur, No friction rub, No click, No other Gastrointestional: No tender, No soft, No round, No distended, No pulsatile mass, No organomegaly, No guarding, No rebound, No tenderness, No hernia, No mass, No audible bowel sounds, No abnormal bowel sounds, No abdominal bruits, No spleenomegaly, No other Extremities: No normal range of motion, No non-tender, No normal inspection, No pedal edema, No calf tenderness, No normal capillary refill, No pelvis stable, No calf tenderness, No inflammation, No pedal edema, No slow capillary refill, No swelling, No other, No abrasion, No clubbing, No cyanosis, No ecchymosis, No laceration, No no lower extremity edema bilateral, No significant edema, No tenderness, No wound Neurologic/Psychiatric: No activity director II-XII nml as tested; no motor/sensory deficits, alert, normal mood/affect, oriented x 3; No abnormal cerebellar tests, No abnormal activity director II-XII, No abnormal gait, No aphasia, No EOM palsy, No facial droop, No motor weakness, No sensory deficit, No depressed affect, No disoriented x 3, No other, No grossly intact, No power is 5/5 both on sides A/P: Assessment/Dx: Paroxysmal atrial fibrillation, Left femoral head fracture. Plan: Post orthopedic surgery. Doing well. Inpatient rehabilitation. PAF: Continue flecainide and mexiletine for now. OAC. Thank you for your consultation. Please call me if you have any questions. Anette Calderón MD, FACP, FACC, FSCAI, FHRS, CCDS Interventional Cardiology Cardiac Electrophysiology Vascular Medicine and Endovascular Interventions Laura CALDERÓN MD Jan 13, 2019 19:34
[2019-01-14 06:38] VITALS: BP 114/64
[2019-01-14] MEDS: HYDROcodone/APAP 5 MG/325 MG (LORTAB) TAB PO PRN (06:47)
[2019-01-14] MEDS: MEXILETINE 150 MG (MEXITIL) CAPSULE PO SCH (06:48)
[2019-01-14 08:58] VITALS: BP 122/80
[2019-01-14] MEDS: APIXABAN 5 MG (ELIQUIS) TABLET PO SCH (08:59)
[2019-01-14] MEDS: cloNIDine 0.1 MG (CATAPRES) TAB PO SCH (09:00)
[2019-01-14] MEDS: FLECAINIDE 100 MG (TAMBOCOR) TAB PO SCH (09:01)
[2019-01-14] MEDS: BENAZEPRIL 40 MG TAB PO SCH (09:02)
[2019-01-14] MEDS: meTOproloL SUCCINATE 50 MG (TOPROL XL) TAB PO SCH (09:02)
[2019-01-14] MEDS: POLYETHYLENE GLYCOL 17 GM (MIRALAX) PACK PO SCH (09:04)
[2019-01-14] MEDS: SENNA W/DOCUSATE (SENOKOT S) TABLET PO SCH (09:04)
[2019-01-14] MEDS: DOCUSATE SODIUM 100 MG (COLACE) CAP PO SCH (09:04)
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
--- NOTE | 2019-01-14 11:40 | Discharge Summary ---
Diagnosis/Chief Complaint Date of Admission Jan 09, 2019 at 12:21 Date of Discharge Discharge Date: Jan 14, 2019 Discharge Diagnosis Assessment: Status post left hip fracture underwent uncomplicated repair Paroxysmal atrial fibrillation On oral anticoagulation for stroke prophylaxis Hypertension Hyperlipidemia Postop constipation Mild urinary retention Elevated liver enzymes Plan: Monitor closely Pain control Inpatient rehab protocol with therapies Maintain home medication for atrial fibrillation Maintain on Eliquis for anticoagulation for stroke prophylaxis from atrial fibrillation in addition to DVT prophylaxis after hip fracture We will discharge home with his once completing therapy Wednesday (1) Closed left hip fracture (2) Atrial fibrillation (3) Constipation (4) Urinary retention (5) Hyperlipidemia (6) Paroxysmal atrial fibrillation (7) Essential (primary) hypertension (8) ELIQUIS THERAPY FOR ATRIAL FIB (9) Elevated liver enzymes Discharge Summary Discharge Physical Examination Allergies: Coded Allergies: Sulfa (Sulfonamide Antibiotics) (Verified Allergy, Mild, RASH, 07/21/17) morphine (Verified Allergy, Mild, NAUSEA, 07/21/17) Vitals & I&Os Vital Signs Date Time Temp Pulse Resp B/P (MAP) Pulse Ox O2 Delivery O2 Flow Rate FiO2 01/14/19 09:00 Nasal Cannula 01/14/19 08:58 62 122/80 (94) 01/14/19 06:38 97.8 18 97 General Appearance: Alert, Oriented X3, Cooperative HEENT: Atraumatic, PERRLA Respiratory: Clear to Auscultation, Normal Air Movement Cardiovascular: Regular Rate Abdominal: Normal Bowel Sounds Neuro: Normal Gait, Normal Speech, Strength at 5/5 X4 Ext Psych/Mental Status: Mental Status NL, Mood NL Hospital Course Was the Problem List Reviewed?: Yes Hospital course: Patient had an uneventful inpatient rehab hospital course he was maintained on all of his cardiac meds including antiarrhythmics and oral anticoagulation throughout the entire stay. Bowel function returned back to normal and he participated in all therapies as required. Pain was well controlled on pain medication between 2 and 4 tablets a day and that prescription was written at time of discharge. His prior level of functioning was fully independent and at time of discharge he was walking with a walker for safety reasons but he will continue outpatient treatment with physical therapy and occupational therapy and likely will resume independent walking without assistive device within 2 to 4 weeks. He will have close follow-up with his primary care provider Dr. Evans. Discharge Home Medications: Active Scripts Active Senna-Time S Tablet (Sennosides/Docusate Sodium) 1 Each Tablet 2 Ea PO BID Hydrocodone/Acetaminophen 5/325mg Tablet (Acetaminophen/Hydrocodone Bitart) 1 Tab Tab 1-2 Tab PO Q4H PRN Reported Eliquis (Apixaban) 5 Mg Tablet 5 Mg PO BID [place] Es Tab Eff (Aspirin/Sod Bicarb/Citric Acid) 1 Each Tablet.eff 1 Tab PO DAILY PRN Amlodipine Besylate 10 Mg Tablet 10 Mg PO 1500 Atorvastatin Calcium 10 Mg Tablet 10 Mg PO 1500 Flecainide Acetate 100 Mg Tablet 100 Mg PO BID Mexiletine HCl 150 Mg Cap 300 Mg PO BID TAKES 2 (150MG) CAPSULES Clonidine HCl 0.1 Mg Tablet 0.1 Mg PO TID Toprol Xl (Metoprolol Succinate) 50 Mg Tab.er.24h 75 Mg PO DAILY TAKES 1 & 1/2 (50MG) TABLETS Benazepril HCl 40 Mg Tab 40 Mg PO DAILY Instructions to patient/family Please see electronic discharge instructions given to patient. Diagnosis/Problems Diagnosis/Problems (1) Closed left hip fracture Status: Acute (2) Atrial fibrillation Status: Chronic (3) Constipation (4) Urinary retention (5) Hyperlipidemia (6) Paroxysmal atrial fibrillation Status: Acute (7) Essential (primary) hypertension Status: Chronic (8) ELIQUIS THERAPY FOR ATRIAL FIB (9) Elevated liver enzymes Clinical Quality Measures DVT/VTE Risk/Contraindication: Risk Factor Score Per Nursin RFS Level Per Nursing on Admit: 4+=Very High MAEGAN OAKES DO Jan 14, 2019 11:40
--- NOTE | 2019-01-16 13:47 | Therapy Team Discharge Summary ---
Therapy Discharge Summary Discharge Recommendations Date of Discharge Jan 14, 2019 at 12:30 Therapy D/C Recommendations: Home w/ Family Support, Occupational Therapy Home Care Physical Therapy This patient was admited to ARU post acute stay due to a left hip fracture. Prior to the fracture pt was indep with all mobility and active performing yard work. Upon admission to ARU, pt was min assist with gait and transfers. Treatment has consisted of functional strength, balance, transfers and gait training. At discharge, he was mod indep with all mobility and has achieved goals to a satisfactory level, making good progress. Pt to discharge home and recommend follow up care as needed. DC PT. 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 Goals Library Science Instructor Goals PT Library Science Instructor Goals Time Frame: Jan 20, 2019 Transfers (B,C,W/C) (FIM): 7 (scred a 6) Roll Left to Right (QC): 6 Sit to Lying (QC): 6 Lying-Sitting on Side/Bed(QC): 6 Sit to Stand (QC): 6 Chair/[id number]-Ypqbh Xfer(QC): 6 Car Transfer (QC): 6 Does the Patient Walk: Yes Gait (FIM): 6 (met) Gait distance (FIM): 3=150 ft Walk 10 feet (QC): 6 Walk 10ft-Uneven Surface(QC): 6 Walk 50ft with 2 Turns (QC): 6 Walk 150 ft (QC): 6 Gait Assistive Device: FWW Does the Pt use WC or Scooter?: No Stairs (FIM): 6 (scored a 5) # of Steps: 12 1 Step (curb) (QC): 6 4 Steps (QC): 6 12 Steps (QC): 6 Picking up an Object (QC): 5 all goals met to a satisfactory level. OT Library Science Instructor Goals Retirement Goals Time Frame: Jan 20, 2019 Eating (FIM): 7 Eating (QC): 6 Oral Hygiene (QC): 6 Grooming(FIM): 6 Bathing(FIM): 6 Shower/Bathe Self (QC): 6 Upper Body Dressing(FIM): 6 Upper Body Dressing (QC): 6 Lower Body Dressing(FIM): 6 Lower Body Dressing (QC): 6 On/Off Footwear (QC): 6 Toileting(FIM): 6 Toileting Hygiene (QC): 6 Toilet/Commode Transfer(FIM): 6 Toilet/Commode Transfer (QC): 6 Tub Transfer(FIM): 6 (or shower) Shower Transfer(FIM): 6 (or tub) Additional Goals: 1-Demonstrate ADL Tasks, 2-Verbalize Understanding, 3-ImproveStrength/Nataliya 1=Demonstrate adherence to instructed precautions during ADL tasks. 2=Patient will verbalize/demonstrate understanding of assistive devices/modifications for ADL. 3=Patient will improve strength/tolerance for activity to enable patient to per form ADL's. MELBA GRUBER PT Jan 16, 2019 13:47
--- NOTE | 2019-01-17 08:48 | Therapy Team Discharge Summary ---
Therapy Discharge Summary Discharge Recommendations Date of Discharge Jan 14, 2019 at 12:30 Therapy D/C Recommendations: Home w/ Family Support, Occupational Therapy Home Care Occupational Therapy Pt. has been seen by occupational therapy to increase overall strength and independence with daily tasks. Pt. has met all goals. Pt. is able to complete bathing, dressing, toileting, and grooming tasks with Mod I. Pt. discharged home with support of spouse and OT as recommended. Decreased Activ Tolerance PT Detective Sergeant Goals Long-Term Goals PT Long-Term Goals Time Frame: Jan 20, 2019 Transfers (B,C,W/C) (FIM): 7 (scred a 6) Roll Left to Right (QC): 6 Sit to Lying (QC): 6 Lying-Sitting on Side/Bed(QC): 6 Sit to Stand (QC): 6 Chair/[id number]-ae-Ktmsc Xfer(QC): 6 Car Transfer (QC): 6 Does the Patient Walk: Yes Gait (FIM): 6 (met) Gait distance (FIM): 3=150 ft Walk 10 feet (QC): 6 Walk 10ft-Uneven Surface(QC): 6 Walk 50ft with 2 Turns (QC): 6 Walk 150 ft (QC): 6 Gait Assistive Device: FWW Does the Pt use WC or Scooter?: No Stairs (FIM): 6 (scored a 5) # of Steps: 12 1 Step (curb) (QC): 6 4 Steps (QC): 6 12 Steps (QC): 6 Picking up an Object (QC): 5 OT Detective Sergeant Goals Long-Term Goals Time Frame: Jan 20, 2019 Eating (FIM): 7 (met) Eating (QC): 6 (met) Oral Hygiene (QC): 6 (met) Grooming(FIM): 6 (met) Bathing(FIM): 6 (met) Shower/Bathe Self (QC): 6 (met) Upper Body Dressing(FIM): 6 (met) Upper Body Dressing (QC): 6 (met) Lower Body Dressing(FIM): 6 (met) Lower Body Dressing (QC): 6 (met) On/Off Footwear (QC): 6 (met) Toileting(FIM): 6 (met) Toileting Hygiene (QC): 6 (met) Toilet/Commode Transfer(FIM): 6 (met) Toilet/Commode Transfer (QC): 6 (met) Tub Transfer(FIM): 6 (or shower) Shower Transfer(FIM): 6 (or tub) Additional Goals: 1-Demonstrate ADL Tasks, 2-Verbalize Understanding, 3- ImproveStrength/Nataliya 1=Demonstrate adherence to instructed precautions during ADL tasks. 2=Patient will verbalize/demonstrate understanding of assistive devices/modifications for ADL. 3=Patient will improve strength/tolerance for activity to enable patient to perform ADL's. SELAM CLARKE OT Jan 17, 2019 08:48
== END 2019-01-14 12:30 | disposition home or self-care (01) | DRG 561 ==
PROVIDERS: ADMIT Internal Medicine; ATTEND Internal Medicine
DX: S72.002D Fracture of unspecified part of neck of left femur, subsequent encounter for closed fracture with routine healing (principal); I48.0 Paroxysmal atrial fibrillation; K59.09 Other constipation; R33.9 Retention of urine, unspecified; E78.5 Hyperlipidemia, unspecified; I10 Essential (primary) hypertension; R74.8 Abnormal levels of other serum enzymes; Z79.01 Long term (current) use of anticoagulants; Z87.820 Personal history of traumatic brain injury; W11.XXXD Fall on and from ladder, subsequent encounter; Y92.017 Garden or yard in single-family (private) house as the place of occurrence of the external cause; Y93.H9 Activity, other involving exterior property and land maintenance, building and construction

== ENCOUNTER 2019-04-17 12:54 | Outpatient (RCR) | payer MEDICARE, OTHER ==
[~2019-04-17 12:54] MED LIST changes: +ACHD5005 PO; +SENN-20 PO
== END 2019-04-18 | disposition home or self-care (01) ==
PROVIDERS: ATTEND Orthopaedic Surgery Orthopaedic Trauma
DX: S72.002D Fracture of unspecified part of neck of left femur, subsequent encounter for closed fracture with routine healing (principal); W11.XXXD Fall on and from ladder, subsequent encounter

== ENCOUNTER 2019-04-20 12:53 | Outpatient (RCR) | payer MEDICARE, OTHER | END 2019-06-01 10:57 | disposition home or self-care (01) | PROVIDERS: ATTEND Orthopaedic Surgery Orthopaedic Trauma | DX: S72.92XD Unspecified fracture of left femur, subsequent encounter for closed fracture with routine healing (principal); W11.XXXD Fall on and from ladder, subsequent encounter ==

== ENCOUNTER → 2020-08-14 | Outpatient (CLI) | payer MEDICARE, OTHER ==
[~2020-08-14] MED LIST changes: +AMLO-250 PO; +AMLO-251 PO; -AMLO10TA7 PO; -AMLO5TAB9 PO; +CLN.1T PO; -CLON0.1T PO
== END ==
LOC: LABNPT 08:23
PROVIDERS: ATTEND Specialist
DX: Z20.822 Contact with and (suspected) exposure to COVID-19 (principal)
CPT/HCPCS: 87635

== ENCOUNTER 2022-02-12 19:35 | Outpatient (CLI) | payer MEDICARE ==
[~2022-02-12 19:35] MED LIST changes: -BENA40TA5 PO; +BENA40TA84 PO
== END 2022-02-13 06:19 | disposition home or self-care (01) ==
LOC: SLEEP 19:35
PROVIDERS: ATTEND Family Medicine
DX: G47.33 Obstructive sleep apnea (adult) (pediatric) (principal); I10 Essential (primary) hypertension
CPT/HCPCS: 95811

== ENCOUNTER → 2022-08-11 | Outpatient (CLI) | payer MEDICARE | LOC: CARD 10:07 | DX: I48.0 Paroxysmal atrial fibrillation (principal); I49.3 Ventricular premature depolarization; I10 Essential (primary) hypertension | CPT/HCPCS: 93005 ==

== ENCOUNTER → 2022-10-12 | Outpatient (CLI) | payer MEDICARE | LOC: CARD 09:42 | PROVIDERS: ATTEND Nurse Practitioner | DX: I49.3 Ventricular premature depolarization (principal); I48.0 Paroxysmal atrial fibrillation; I10 Essential (primary) hypertension; E78.49 Other hyperlipidemia | CPT/HCPCS: 93005 ==

== ENCOUNTER → 2022-11-03 | Outpatient (CLI) | payer MEDICARE | LOC: CARD 10:40 | PROVIDERS: ATTEND Nurse Practitioner | DX: I49.3 Ventricular premature depolarization (principal); I48.0 Paroxysmal atrial fibrillation | CPT/HCPCS: 93005 ==

== ENCOUNTER → 2022-12-09 | Outpatient (CLI) | payer MEDICARE | LOC: CARD 11:09 | PROVIDERS: ATTEND Nurse Practitioner | DX: I49.3 Ventricular premature depolarization (principal); I48.0 Paroxysmal atrial fibrillation; R09.89 Other specified symptoms and signs involving the circulatory and respiratory systems; I10 Essential (primary) hypertension; E78.49 Other hyperlipidemia | CPT/HCPCS: 93005 ==

== ENCOUNTER → 2023-04-19 | Outpatient (CLI) | payer MEDICARE ==
--- NOTE | 2023-04-19 14:58 | Diagnostic Imaging Report ---
PROCEDURE: US right lower extremity venous. TECHNIQUE: Multiple real-time grayscale images were obtained over the right lower extremity in various projections. Additional spectral analysis and color Doppler duplex images were also obtained. INDICATION: Right lower extremity pain and swelling. COMPARISON: None FINDINGS: The right common femoral vein, femoral vein, deep femoral vein, and popliteal vein are normal in appearance. These vessels show normal compressibility, color flow and doppler augmentation. The visualized deep calf veins demonstrate no distinct intraluminal thrombus. There is subcutaneous edema in the right leg. IMPRESSION: 1. No sonographic evidence of deep venous thrombosis in the right lower extremity. 2. Subcutaneous edema in the right leg. Dictated by: Dictated on workstation # [id number]
== END ==
LOC: RAD 13:51
PROVIDERS: ATTEND Family Medicine
DX: M79.89 Other specified soft tissue disorders (principal); R60.0 Localized edema; M79.604 Pain in right leg